=== PATIENT | male | born 1965 | race Two or more races ===

== ENCOUNTER 2017-02-20 08:25 | Day surgery (SDC) | payer OTHER ==
[2017-02-20] MEDS ORDERED: LACTATED RINGERS 1,000 ML IV ONE ×2 (09:00→10:59)
[2017-02-20] MEDS ORDERED: GLUCAGON 1 MG/ML VIAL IM ONE (09:47)
[2017-02-20] MEDS ORDERED: MIDAZOLAM 2 MG/2 ML VIAL IVP ONE (09:47)
[2017-02-20] MEDS ORDERED: fentaNYL 100 MCG/2 ML VIAL IVP ONE (09:47)
[2017-02-20 11:11] LABS: BASOPHILS # (AUTO) 0.1 10^3/uL (0.0-0.1); BASOPHILS % (AUTO) 0.8 %; EOSINOPHILS # (AUTO) 0.1 10^3/uL (0.0-0.7); EOSINOPHILS % (AUTO) 2.1 %; HCT - HEMATOCRIT 40.4 % (42.0-52.0); HGB - HEMOGLOBIN 13.6 g/dL (14.0-18.0); LYMPHOCYTES # (AUTO) 1.6 10^3/uL (1.5-3.5); MEAN CORPUSCULAR HGB CONC 33.7 g/dL (32.0-36.0); MEAN CORPUSCULAR VOLUME 86.1 fL (80.0-94.0); MEAN PLATELET VOLUME 7.2 fL (7.4-11.4); MONOCYTES # (AUTO) 0.4 10^3/uL (0.0-1.0); MONOCYTES % (AUTO) 6.1 %; NEUTROPHILS # (AUTO) 4.3 10^3/uL (1.5-6.6); RED BLOOD COUNT 4.69 10^6/uL (4.70-6.10); RED CELL DISTRIBUTION WIDTH 13.2 % (12.0-15.0); UNCORRECTED WHITE BLOOD COUNT 6.5 x10^3/uL; WHITE BLOOD COUNT 6.5 x10^3/uL (4.8-10.8)
[2017-02-20 11:16] VITALS: BP 125/80
[2017-02-20 11:31] LABS: ALBUMIN/GLOBULIN RATIO 1.4 (1.0-2.2); BILIRUBIN,TOTAL 0.9 mg/dL (0.2-1.0); CALCIUM 8.7 mg/dL (8.5-10.3); CREATININE 0.8 mg/dL (0.6-1.2); POTASSIUM 3.6 mmol/L (3.5-5.0); TOTAL PROTEIN 6.6 g/dL (6.7-8.2)
== END 2017-02-20 08:26 | disposition home or self-care (01) ==
LOC: SDS 08:25
PROVIDERS: ATTEND Surgery
PROC: 0DBL8ZX Excision of Transverse Colon, Via Natural or Artificial Opening Endoscopic, Diagnostic (ICD-10-PCS; 2017-02-20)
PROC: 0DBM8ZX Excision of Descending Colon, Via Natural or Artificial Opening Endoscopic, Diagnostic (ICD-10-PCS; 2017-02-20)
PROC: 0DBP8ZX Excision of Rectum, Via Natural or Artificial Opening Endoscopic, Diagnostic (ICD-10-PCS; principal; 2017-02-20 09:45)
DX: Z12.11 Encounter for screening for malignant neoplasm of colon (principal); D12.3 Benign neoplasm of transverse colon; K63.5 Polyp of colon; K62.1 Rectal polyp; K21.9 Gastro-esophageal reflux disease without esophagitis
CPT/HCPCS: 36415; 45380; 45385; 80053; 82378; 85025; J7120

== ENCOUNTER 2017-02-22 15:20 | Outpatient (CLI) | payer OTHER ==
[2017-02-22] MEDS ORDERED: IOPAMIDOL-300 50 ML VIAL PO ONE (17:22)
[2017-02-22] MEDS ORDERED: IOPAMIDOL-300 100 ML VIAL IVP ONE (17:23)
--- NOTE | 2017-02-23 09:35 | CT Report ---
CT ABDOMEN WITH AND WITHOUT CONTRAST: 02/22/2017 CLINICAL INDICATION: Abnormal colonoscopy. TECHNIQUE: Axial CT images of the abdomen were obtained prior to and following 100 mL Isovue-[address]. No previous CT is available for comparison. In accordance with CT protocol optimization, one or more of the following dose reduction techniques w ere utilized for this exam: automated exposure control, adjustment of mA and/or KV based on patient size, or use of iterative reconstructive technique. FINDINGS: Limited evaluation of the lung bases demonstrates minimal atelectasis. The liver demonstrates innumerable hypodense lesions. The largest, in the left lobe adjacent to the gallbladder fossa, measures 3.7 x 2.9 cm, and is a cyst. Multiple others are too small to further ch aracterize by CT. The spleen, pancreas, kidneys, and adrenal glands are unremarkable. The gallbladd er is not dilated. No bowel dilatation, free gas, or free fluid is seen. No abdominal adenopathy is appreciated. IMPRESSION: INNUMERABLE HYPODENSE LESIONS IN THE LIVER. THE LARGEST IS CLEARLY A CYST, BUT SEVERAL LESIONS ARE TOO SMALL TO FURTHER CHARACTERIZE BY CT. NO EVIDENCE OF BOWEL OBSTRUCTION. JOB #: [id number] EXT JOB #:[id number]
== END 2017-02-22 15:21 | disposition home or self-care (01) ==
LOC: DI 15:20
PROVIDERS: ATTEND Nurse Practitioner Family
DX: K76.9 Liver disease, unspecified (principal); K76.89 Other specified diseases of liver
CPT/HCPCS: 74170; Q9967

== ENCOUNTER 2017-03-05 18:47 | Outpatient (CLI) | payer OTHER ==
--- NOTE | 2017-03-06 12:51 | Ultrasound Report ---
LIMITED ABDOMINAL ULTRASOUND: 03/05/2017 CLINICAL HISTORY: Liver lesions. TECHNIQUE: Real-time scanning was performed with workforce services representative static images obtained. FINDINGS: The liver measures 17 cm in length. The echotexture is increased consistent with fatty infiltration. There are numerous cysts present - many are septated/complex. The dominant cyst is in the right lobe measuring 1.1 x 0.8 x 0.9 cm. The dominant cyst in the left lobe measures 3.3 x 2.5 x 3.1 cm. No solid liver lesions are confirmed sonographically. The gallbladder is sonographically normal. There is no intra nor extraductal dilation. The right kidney measures 11 cm in sagittal dimension. There is no obstructive uropathy. IMPRESSION: INNUMERABLE SIMPLE/SEPTATED ANDCOMPLEX CYSTS IN THE LIVER. NO DEFINITE SOLID LESIONS CONFIRMED SONOGRAPHICALLY. JOB #: [id number] EXT JOB #: [id number] JULITO
== END 2017-03-05 18:48 | disposition home or self-care (01) ==
LOC: DI 18:47
PROVIDERS: ATTEND Surgery
DX: K76.89 Other specified diseases of liver (principal)
CPT/HCPCS: 76705

== ENCOUNTER 2017-03-07 06:06 | Inpatient (IN) | payer OTHER ==
[2017-03-07] MEDS ORDERED: ERTAPENEM 1 GM VIAL ONE (06:26)
[2017-03-07] MEDS ORDERED: LACTATED RINGERS 1,000 ML IV ONE ×2 (06:43→12:11)
[2017-03-07] MEDS ORDERED: BUPIVACAINE 0.5%-EPI 1:200000 PF 30 ML VIAL SUBQ ONE ×2 (08:19→11:59)
[2017-03-07] MEDS ORDERED: HYDROmorphone 1 MG/ML SYRINGE IVP PRN (12:18)
[2017-03-07] MEDS: D5NS W/20 MEQ KCL 1,000 ML IV SCH ×2 (12:56→20:32)
[2017-03-07] MEDS: SODIUM CHLORIDE FLUSH 0.9% 10 ML SYRINGE IVP SCH ×3 (13:07→20:13)
[2017-03-07] MEDS ORDERED: ONDANSETRON 4 MG/2 ML VIAL IVP PRN (13:31)
[2017-03-07] MEDS: KETOROLAC 15 MG/ML VIAL IVP PRN ×2 (13:44→23:46)
[2017-03-07] MEDS: HYDROmorphone 1 MG/ML SYRINGE IVP PRN ×2 (20:12→23:47)
[2017-03-08] MEDS: HYDROmorphone 1 MG/ML SYRINGE IVP PRN ×3 (03:30→09:51)
--- NOTE | 2017-03-08 04:04 | OPERATIVE REPORT ---
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 PROCEDURES 1. Laparoscopic left hemicolectomy. 2. Mobilization of splenic flexure. OPERATING SURGEON: Jordan Foley MD. CLERK MANAGER: Navya Perez MD. ANESTHESIA: General. INDICATIONS FOR PROCEDURE: The patient is a 52-year-old male who underwent a routine colonoscopy. He was found to have a large polyp/mass in the left colon at 55 cm. Biopsy of the lesion revealed high grade dysplasia. FINDINGS AT SURGERY: The patient had at least a 3 cm mass in the descending - sigmoid colon junction. A left hemicolectomy was performed with colorectal anastomosis. There was no tension at the staple line after completing the anastomosis with a 28 EEA stapling device. Both donuts were intact. On insufflating the rectum with air, there was no leak being noted at the anastomosis. PROCEDURE: After informed consent was obtained, the patient was taken to the operating room and placed in the supine position. General endotracheal anesthesia administered. The patient's abdomen was then prepped and draped in the usual sterile fashion. An infraumbilical incision was made in the skin using a scalpel. A 5 mm Optiview trocar was then inserted through the incision, through the fascia, and into the abdominal cavity under direct vision. The abdomen was then insufflated. A 5 mm port was then placed in left lower quadrant and flank under direct vision and a 12 mm port placed in the right lower quadrant incision. The 5 mm port at the umbilicus was then up sized to a 12 mm port. The abdomen was then explored. The liver appeared to be normal without abnormalities superficially. First, the peritoneum was then scored along the rectosigmoid colon medially. Next dissecting underneath the mesentery , the ureter was then identified. It was then dissected free going down in the pelvis and proximally past the left colon arterial blood supply. Attention then turned to the left colic artery. This was dissected free from the surrounding structures. With the ureter identified, a GI 45 stapling device was then placed across the left colic artery, stapling and dividing it. Next, the sigmoid colon and left colon was then mobilized laterally by incising the lateral peritoneal reflection. Next, attention turned down to the pelvis near the rectosigmoid junction. The mesentery of the colon at this point was then divided using the Harmonic scalpel. A GI 60 stapling device was then placed across the colon at this point, stapling and dividing it. The splenic flexure was then mobilized using the Harmonic scalpel. The greater omentum was then detached from the distal transverse colon using the Harmonic scalpel. This better mobilized the left colon. The inferior mesenteric vein was then divided using GI 60 stapling device. With the left colon and distal transverse colon fully mobilized, the colon was then exteriorized. The incision at the umbilicus was then extended through the umbilicus. This allowed placement of a small wound protector. The divided end of the colon was then brought out through this opening. The proximal descending colon was then used to complete the anastomosis. First pursestring suture was then placed across the colon, dividing it on the device with the distal colon being removed, meaning the descending and sigmoid colon. A #28 anvil was then inserted into the divided end of the proximal descending colon with the suture then being tied. The anvil was then brought back into the abdominal cavity and the Davy wound protector twisted as to obtain airtight seal. The abdomen was then insufflated. Looking at it, it appeared to be fully mobilized. Looking at the ureter, it was intact throughout its course. The anvil of the colon was then brought down in the pelvis without tension. A 28 EEA stapling device was then placed through the anus and into the rectum, going up to where the colon was divided. The spike was then brought out through the stapled end and the anvil was then placed into the spike. The anvil was then brought close to the device after tightening it. It was then engaged, creating a new anastomosis. The EEA stapling device was then removed and both donuts were intact. The pelvis was then filled with fluid and air insufflated into the rectum with no leak noted at the anastomosis. The fluid was then suctioned out. The small bowel was then returned to a good location in the abdomen and the omentum brought down. The 12 mm port in the right lower quadrant was then closed using a 0 Vicryl suture using Mervin Sanchez. The ports were then removed and no bleeding was noted at the port sites, with the abdomen then being desufflated. The midline fascial defect was closed using a running #1 PDS suture. Skin incisions were irrigated well. They were then closed using a 3-0 Monocryl suture. Dermabond was then applied. The patient was then awakened, extubated and taken from the operating room in stable condition. SPECIMENS: Left colon. DRAINS/PACKS: None. CLASSIFICATION OF WOUND: Clean contaminated. ESTIMATED BLOOD LOSS: 100 mL. COMPLICATIONS: None. JOB #: [id number] EXT JOB #:[id number] [facility]ITALJo Ann
[2017-03-08] MEDS: D5NS W/20 MEQ KCL 1,000 ML IV SCH ×4 (04:22→22:20)
[2017-03-08] MEDS: SODIUM CHLORIDE FLUSH 0.9% 10 ML SYRINGE IVP SCH ×3 (05:26→22:01)
[2017-03-08 05:36] LABS: BASOPHILS % (AUTO) 0.1 %; EOSINOPHILS % (AUTO) 0.1 %; HCT - HEMATOCRIT 38.4 % (42.0-52.0); HGB - HEMOGLOBIN 12.8 g/dL (14.0-18.0); LYMPHOCYTES # (AUTO) 1.6 10^3/uL (1.5-3.5); LYMPHOCYTES % (AUTO) 14.9 %; MEAN CORPUSCULAR HEMOGLOBIN 29.1 pg (27.0-31.0); MEAN CORPUSCULAR HGB CONC 33.3 g/dL (32.0-36.0); MEAN CORPUSCULAR VOLUME 87.2 fL (80.0-94.0); MEAN PLATELET VOLUME 7.5 fL (7.4-11.4); MONOCYTES # (AUTO) 1.3 10^3/uL (0.0-1.0); MONOCYTES % (AUTO) 11.8 %; NEUTROPHILS % (AUTO) 73.1 %; NUCLEATED RED BLOOD CELLS AUTO 0.1 /100WBC; RED CELL DISTRIBUTION WIDTH 13.3 % (12.0-15.0); UNCORRECTED WHITE BLOOD COUNT 10.9 x10^3/uL; WHITE BLOOD COUNT 10.9 x10^3/uL (4.8-10.8)
[2017-03-08 05:43] LABS: CALCIUM 8.3 mg/dL (8.5-10.3); CREATININE 0.8 mg/dL (0.6-1.2); POTASSIUM 3.8 mmol/L (3.5-5.0)
[2017-03-08] MEDS: HEPARIN 5,000 UNIT/ML VIAL SUBQ SCH ×3 (08:27→21:25)
[2017-03-08] MEDS ORDERED: PANTOPRAZOLE 40 MG VIAL IVP SCH (10:00)
[2017-03-08] MEDS: SODIUM CHLORIDE FLUSH 0.9% 10 ML SYRINGE IVP PRN ×2 (12:56→21:26)
[2017-03-08] MEDS: KETOROLAC 15 MG/ML VIAL IVP PRN ×2 (15:58→22:23)
[2017-03-08] MEDS: PANTOPRAZOLE 40 MG VIAL IVP SCH (21:26)
[2017-03-09] MEDS: KETOROLAC 15 MG/ML VIAL IVP PRN ×3 (03:57→22:28)
[2017-03-09 04:53] LABS: BASOPHILS % (AUTO) 0.4 %; EOSINOPHILS # (AUTO) 0.1 10^3/uL (0.0-0.7); EOSINOPHILS % (AUTO) 0.6 %; HCT - HEMATOCRIT 39.5 % (42.0-52.0); HGB - HEMOGLOBIN 13.2 g/dL (14.0-18.0); LYMPHOCYTES # (AUTO) 1.5 10^3/uL (1.5-3.5); LYMPHOCYTES % (AUTO) 16.6 %; MEAN CORPUSCULAR HGB CONC 33.4 g/dL (32.0-36.0); MEAN CORPUSCULAR VOLUME 86.7 fL (80.0-94.0); MEAN PLATELET VOLUME 7.5 fL (7.4-11.4); MONOCYTES # (AUTO) 0.9 10^3/uL (0.0-1.0); MONOCYTES % (AUTO) 9.8 %; NEUTROPHILS # (AUTO) 6.6 10^3/uL (1.5-6.6); NEUTROPHILS % (AUTO) 72.6 %; RED BLOOD COUNT 4.55 10^6/uL (4.70-6.10); RED CELL DISTRIBUTION WIDTH 13.3 % (12.0-15.0)
[2017-03-09 05:00] LABS: CALCIUM 8.6 mg/dL (8.5-10.3); CREATININE 0.9 mg/dL (0.6-1.2); POTASSIUM 3.9 mmol/L (3.5-5.0)
[2017-03-09] MEDS: HEPARIN 5,000 UNIT/ML VIAL SUBQ SCH ×3 (06:07→21:36)
[2017-03-09] MEDS: SODIUM CHLORIDE FLUSH 0.9% 10 ML SYRINGE IVP SCH ×3 (06:11→21:29)
[2017-03-09] MEDS: D5NS W/20 MEQ KCL 1,000 ML IV SCH ×2 (07:55→18:05)
[2017-03-09] MEDS: SODIUM CHLORIDE FLUSH 0.9% 10 ML SYRINGE IVP PRN ×2 (08:49→10:22)
[2017-03-09] MEDS: PANTOPRAZOLE 40 MG VIAL IVP SCH ×2 (08:49→21:37)
--- NOTE | 2017-03-09 10:19 | PROVIDER PROGRESS NOTE ---
Subjective - General Admit Date: 03/07/17 Procedure Performed: Laparoscopic left hemicolectomy - Review of Systems Wound/Incisions: positive: Healing well General: positive: No symptoms Gastrointestinal: positive: Other (no flatus yet) Objective - Patient Data Reviewed Vital Signs: Yes Vital Signs: Vital Signs x48h Temp Pulse Resp BP Pulse Ox 03/09/17 07:37 36.7 C 80 18 119/90 H 97 03/09/17 03:59 37.3 C 90 16 125/87 H 95 Intake & Output: Intake and Output Totals x24h 03/07/17 03/08/17 03/09/17 23:59 23:59 23:59 Intake Total 4138 2438 1174 Output Total 2425 4550 800 Balance 1713 -1312 374 - Lab Results Lab Results: 03/09/17 04:35 03/09/17 04:35 Other Lab Results: Lab Results x24hrs 03/09/17 03/09/17 Range/Units 04:35 04:35 WBC 9.0 (4.8-10.8) x10^3/uL RBC 4.55 L (4.70-6.10) 10^6/uL Hgb 13.2 L (14.0-18.0) g/dL Hct 39.5 L (42.0-52.0) % MCV 86.7 (80.0-94.0) fL MCH 29.0 (27.0-31.0) pg MCHC 33.4 (32.0-36.0) g/dL RDW 13.3 (12.0-15.0) % Plt Count 223 (130-450) 10^3/uL MPV 7.5 (7.4-11.4) fL Neut # 6.6 (1.5-6.6) 10^3/uL Lymph # 1.5 (1.5-3.5) 10^3/uL [place] # 0.9 (0.0-1.0) 10^3/uL Eos # 0.1 (0.0-0.7) 10^3/uL Baso # 0.0 (0.0-0.1) 10^3/uL Absolute Nucleated RBC 0.00 x10^3/uL Nucleated RBCs 0.0 /100WBC Sodium 139 (135-145) mmol/L Potassium 3.9 (3.5-5.0) mmol/L Chloride 108 (101-111) mmol/L Carbon Dioxide 24 (21-32) mmol/L Anion Gap 7.0 (6-13) BUN 8 (6-20) mg/dL Creatinine 0.9 (0.6-1.2) mg/dL Estimated GFR (MDRD) 88 L (>89) Glucose 115 H (70-100) mg/dL Calcium 8.6 (8.5-10.3) mg/dL - Current Medications Current Medications: Current Medications Generic Name Dose Route Start Last Admin Trade Name Freq PRN Reason Stop Dose Admin Heparin Sodium (Porcine) 5,000 unit 03/08/17 08:00 03/09/17 06:07 SUBQ 5,000 unit TID LUIS Administration Hydromorphone HCl 1 mg 03/07/17 12:17 03/08/17 09:51 Dilaudid Inj IVP 1 mg Q2HR PRN Administration PAIN Hydromorphone HCl 2 mg 03/07/17 12:18 03/08/17 12:55 Dilaudid Inj IVP 2 mg Q2HR PRN Administration PAIN Potassium Chloride/Dextrose/Sod Cl 1,000 mls @ 100 mls/hr 03/08/17 09:13 07:55 IV 100 mls/hr .Q10H LUIS Administration Ketorolac Tromethamine 15 mg 03/07/17 13:30 03/09/17 03:57 Toradol Inj IVP 03/12/17 13:29 15 mg Q6HR PRN Administration PAIN Pantoprazole Sodium 20 mg 03/08/17 21:00 03/09/17 08:49 Protonix IVP 20 mg BID LUIS Administration Sodium Chloride 10 ml 03/07/17 12:06 03/09/17 08:49 Normal Saline Flush 0.9% IVP 10 ml PRN PRN Administration NEEDED PER PROVIDER ORDERS Sodium Chloride 10 ml 03/07/17 14:00 03/09/17 06:11 Normal Saline Flush 0.9% IVP Not Given Q8HR LUIS - Physical Exam Wound/Incisions: positive: Healing well Abdomen: positive: Non-tender Impression/Plan - Problem List Problem List: A/P s/p laparoscopic left hemicolectomy pod #2 awaiting return of bowel function -continue liquids -ambulate -await pathology
--- NOTE | 2017-03-09 10:21 | PROVIDER PROGRESS NOTE ---
Subjective - General Admit Date: 03/07/17 Procedure Performed: Laparoscopic left hemicolectomy - Review of Systems Wound/Incisions: positive: Healing well General: positive: No symptoms Gastrointestinal: positive: Other (no flatus yet) Objective - Patient Data Vital Signs: Vital Signs x48h Temp Pulse Resp BP Pulse Ox 03/09/17 07:37 36.7 C 80 18 119/90 H 97 03/09/17 03:59 37.3 C 90 16 125/87 H 95 Intake & Output: Intake and Output Totals x24h 03/07/17 03/08/17 03/09/17 23:59 23:59 23:59 Intake Total 4138 2438 1174 Output Total 2425 2970 800 Balance 1713 -1312 374 - Lab Results Lab Results: 03/09/17 04:35 03/09/17 04:35 Other Lab Results: Lab Results x24hrs 03/09/17 03/09/17 Range/Units 04:35 04:35 WBC 9.0 (4.8-10.8) x10^3/uL RBC 4.55 L (4.70-6.10) 10^6/uL Hgb 13.2 L (14.0-18.0) g/dL Hct 39.5 L (42.0-52.0) % MCV 86.7 (80.0-94.0) fL MCH 29.0 (27.0-31.0) pg MCHC 33.4 (32.0-36.0) g/dL RDW 13.3 (12.0-15.0) % Plt Count 223 (130-450) 10^3/uL MPV 7.5 (7.4-11.4) fL Neut # 6.6 (1.5-6.6) 10^3/uL Lymph # 1.5 (1.5-3.5) 10^3/uL [place] # 0.9 (0.0-1.0) 10^3/uL Eos # 0.1 (0.0-0.7) 10^3/uL Baso # 0.0 (0.0-0.1) 10^3/uL Absolute Nucleated RBC 0.00 x10^3/uL Nucleated RBCs 0.0 /100WBC Sodium 139 (135-145) mmol/L Potassium 3.9 (3.5-5.0) mmol/L Chloride 108 (101-111) mmol/L Carbon Dioxide 24 (21-32) mmol/L Anion Gap 7.0 (6-13) BUN 8 (6-20) mg/dL Creatinine 0.9 (0.6-1.2) mg/dL Estimated GFR (MDRD) 88 L (>89) Glucose 115 H (70-100) mg/dL Calcium 8.6 (8.5-10.3) mg/dL - Current Medications Current Medications: Current Medications Generic Name Dose Route Start Last Admin Trade Name Freq PRN Reason Stop Dose Admin Heparin Sodium (Porcine) 5,000 unit 03/08/17 08:00 03/09/17 06:07 SUBQ 5,000 unit TID LUIS Administration Hydromorphone HCl 1 mg 03/07/17 12:17 03/08/17 09:51 Dilaudid Inj IVP 1 mg Q2HR PRN Administration PAIN Hydromorphone HCl 2 mg 03/07/17 12:18 03/08/17 12:55 Dilaudid Inj IVP 2 mg Q2HR PRN Administration PAIN Potassium Chloride/Dextrose/Sod Cl 1,000 mls @ 100 mls/hr 03/08/17 09:13 07:55 IV 100 mls/hr .Q10H LUIS Administration Ketorolac Tromethamine 15 mg 03/07/17 13:30 03/09/17 03:57 Toradol Inj IVP 03/12/17 13:29 15 mg Q6HR PRN Administration PAIN Pantoprazole Sodium 20 mg 03/08/17 21:00 03/09/17 08:49 Protonix IVP 20 mg BID LUIS Administration Sodium Chloride 10 ml 03/07/17 12:06 03/09/17 08:49 Normal Saline Flush 0.9% IVP 10 ml PRN PRN Administration NEEDED PER PROVIDER ORDERS Sodium Chloride 10 ml 03/07/17 14:00 03/09/17 06:11 Normal Saline Flush 0.9% IVP Not Given Q8HR LUIS - Physical Exam Abdomen: positive: Non-tender, Other (incision clean) Impression/Plan - Problem List Problem List: a/p s/p laparoscopic left hemicolectomy pod#1 no evidence of infection -ambulate d/c hubbard start liquids
[2017-03-10] MEDS: D5NS W/20 MEQ KCL 1,000 ML IV SCH ×2 (03:45→13:28)
[2017-03-10] MEDS: KETOROLAC 15 MG/ML VIAL IVP PRN (04:40)
[2017-03-10] MEDS: SODIUM CHLORIDE FLUSH 0.9% 10 ML SYRINGE IVP SCH ×3 (06:02→22:11)
[2017-03-10] MEDS: HEPARIN 5,000 UNIT/ML VIAL SUBQ SCH ×3 (06:10→20:18)
[2017-03-10] MEDS: PANTOPRAZOLE 40 MG VIAL IVP SCH ×2 (09:44→20:17)
--- NOTE | 2017-03-10 11:29 | PROVIDER PROGRESS NOTE ---
Subjective - General Admit Date: 03/07/17 Procedure Performed: Laparoscopic left hemicolectomy - Review of Systems Wound/Incisions: positive: Healing well General: positive: No symptoms (Wants to walk outside as well as inside.) HEENT: positive: No symptoms Pulmonary: positive: No symptoms Cardiovascular: positive: No symptoms Gastrointestinal: positive: No symptoms (Started with BM and now has flatus as well.), Flatus Genitourinary: positive: No symptoms Musculoskeletal: positive: No symptoms Skin: positive: No symptoms Objective - Patient Data Reviewed Vital Signs: Yes Vital Signs: Vital Signs x48h Temp Pulse Resp BP Pulse Ox 03/10/17 09:11 37.3 C 03/10/17 07:58 93 18 130/73 98 Intake & Output: Intake and Output Totals x24h 03/08/17 03/09/17 03/10/17 23:59 23:59 23:59 Intake Total 2438 4606 1824 Output Total 3750 2550 400 Balance -1312 2056 1424 - Lab Results Lab Results: 03/09/17 04:35 03/09/17 04:35 - Current Medications Current Medications: Current Medications Generic Name Dose Route Start Last Admin Trade Name Freq PRN Reason Stop Dose Admin Heparin Sodium (Porcine) 5,000 unit 03/08/17 08:00 03/10/17 06:10 SUBQ 5,000 unit TID LUIS Administration Hydromorphone HCl 1 mg 03/07/17 12:17 03/08/17 09:51 Dilaudid Inj IVP 1 mg Q2HR PRN Administration PAIN Hydromorphone HCl 2 mg 03/07/17 12:18 03/08/17 12:55 Dilaudid Inj IVP 2 mg Q2HR PRN Administration PAIN Potassium Chloride/Dextrose/Sod Cl 1,000 mls @ 100 mls/hr 03/08/17 09:13 03:45 IV 100 mls/hr .Q10H LUIS Administration Ketorolac Tromethamine 15 mg 03/07/17 13:30 03/10/17 04:40 Toradol Inj IVP 03/12/17 13:29 15 mg Q6HR PRN Administration PAIN Pantoprazole Sodium 20 mg 03/08/17 21:00 03/10/17 09:44 Protonix IVP 20 mg BID LUIS Administration Sodium Chloride 10 ml 03/07/17 12:06 03/09/17 10:22 Normal Saline Flush 0.9% IVP 10 ml PRN PRN Administration NEEDED PER PROVIDER ORDERS Sodium Chloride 10 ml 03/07/17 14:00 03/10/17 06:02 Normal Saline Flush 0.9% IVP Not Given Q8HR LUIS - Physical Exam Wound/Incisions: positive: Healing well, Other (Minimal discoloration likely secondary to bruising.) General Appearance: positive: No acute distress Eyes Bilateral: positive: No lid inflammation, Conjunctivae nml, No scleral icterus Neck: positive: Trachea midline Respiratory: positive: Chest non-tender, No respiratory distress, Breath sounds nml Cardiovascular: positive: Regular rate & rhythm Abdomen: positive: Nml bowel sounds Skin: positive: Color nml Neurologic/Psychiatric: positive: Oriented x3 Impression/Plan - Problem List Problem List: D3 s/p laparoscopic left hemicolectomy Start a general diet. Hep-Lock his IV. Swith to oral Toradol for pain control. Allow the patient to ambulate both inside and outside the hospital. Pathology has not returned yet.
[2017-03-10] MEDS: KETOROLAC 10 MG TABLET PO PRN (19:47)
[2017-03-11] MEDS: KETOROLAC 10 MG TABLET PO PRN (05:48)
[2017-03-11] MEDS: SODIUM CHLORIDE FLUSH 0.9% 10 ML SYRINGE IVP SCH (05:48)
[2017-03-11] MEDS: HEPARIN 5,000 UNIT/ML VIAL SUBQ SCH (06:08)
[2017-03-11] MEDS: PANTOPRAZOLE 40 MG VIAL IVP SCH (08:48)
[2017-03-11 10:46] VITALS: BP 118/84
--- NOTE | 2017-03-11 10:47 | PROVIDER PROGRESS NOTE ---
Subjective - General Admit Date: 03/07/17 Procedure Performed: Laparoscopic left hemicolectomy - Review of Systems Wound/Incisions: positive: Healing well, Other (Minimal discoloration likely secondary to bruising.) General: positive: No symptoms (Pain and discomfort markedly diminished.) HEENT: positive: No symptoms Pulmonary: positive: No symptoms Cardiovascular: positive: No symptoms Gastrointestinal: positive: No symptoms (BM without difficulty.), Flatus Genitourinary: positive: No symptoms Musculoskeletal: positive: No symptoms Skin: positive: No symptoms Psychiatric: positive: No symptoms Objective - Patient Data Reviewed Vital Signs: Yes Vital Signs: Vital Signs x48h Temp Pulse BP Pulse Ox 03/11/17 07:32 36.6 C 66 127/80 99 Intake & Output: Intake and Output Totals x24h 03/09/17 03/10/17 03/11/17 23:59 23:59 23:59 Intake Total 4606 2304 710 Output Total 2550 400 Balance 2056 1904 710 - Lab Results Lab Results: 03/09/17 04:35 03/09/17 04:35 - Current Medications Current Medications: Current Medications Generic Name Dose Route Start Last Admin Trade Name Freq PRN Reason Stop Dose Admin Heparin Sodium (Porcine) 5,000 unit 03/08/17 08:00 03/11/17 06:08 SUBQ Not Given TID LUIS Hydromorphone HCl 1 mg 03/07/17 12:17 03/08/17 09:51 Dilaudid Inj IVP 1 mg Q2HR PRN Administration PAIN Hydromorphone HCl 2 mg 03/07/17 12:18 03/08/17 12:55 Dilaudid Inj IVP 2 mg Q2HR PRN Administration PAIN Ketorolac Tromethamine 15 mg 03/07/17 13:30 03/10/17 04:40 Toradol Inj IVP 03/12/17 13:29 15 mg Q6HR PRN Administration PAIN Ketorolac Tromethamine 10 mg 03/10/17 11:25 03/11/17 05:48 Toradol PO 03/15/17 11:24 10 mg Q6HR PRN Administration PAIN Pantoprazole Sodium 20 mg 03/08/17 21:00 03/11/17 08:48 Protonix IVP Not Given BID LUIS Sodium Chloride 10 ml 03/07/17 12:06 03/09/17 10:22 Normal Saline Flush 0.9% IVP 10 ml PRN PRN Administration NEEDED PER PROVIDER ORDERS Sodium Chloride 10 ml 03/07/17 14:00 03/11/17 05:48 Normal Saline Flush 0.9% IVP 10 ml Q8HR LUIS Administration - Physical Exam Wound/Incisions: positive: Healing well (The discoloration did not extend passed marked line.) General Appearance: positive: No acute distress Eyes Bilateral: positive: No lid inflammation, Conjunctivae nml, No scleral icterus Neck: positive: Trachea midline Respiratory: positive: Chest non-tender, No respiratory distress, Breath sounds nml Cardiovascular: positive: Regular rate & rhythm Abdomen: positive: Nml bowel sounds Skin: positive: Color nml Extremities: positive: Non-tender, Full ROM, Nml appearance Neurologic/Psychiatric: positive: Oriented x3 Impression/Plan - Problem List Problem List: Discharge home today on regular diet with only restriction being no lifting greater than 15 pounds for 6 week. Follow-up with us in the office in 7-10 days. Contact us with any surgical questions and/or concerns. He has been instructed that he can shower, hot tub, swim, walk, climb stairs, tolerated general diet, and have sex.
--- NOTE | 2017-03-11 10:52 | Discharge Plan ---
Discharge Plan Disposition: 01 Home, Self Care Condition: Good Prescriptions: Ketorolac [Toradol] 10 mg PO Q6HR PRN #12 tablet PRN Reason: Pain Diet: Regular Activity Restrictions: No lifting >15 pounds Shower Restrictions: No Driving Restrictions: No Weight Bearing: Full Weight Additional Instructions or Follow Up instructions: Call for appointment in 7-10 days on Sunday morning and call the same number with surgical questions or concerns. No Smoking: If you smoke, Please STOP! Call for help. Follow-up with: Jordan Foley MD [Provider Admit Priv/Credential] -
--- NOTE | 2017-03-11 21:05 | DISCHARGE SUMMARY ---
DATE OF ADMISSION: 03/07/2017 DATE OF DISCHARGE: 03/11/2017 The patient was admitted to the hospital on 03/07/2017 and operated on the same date by Dr. Og martinez assisted by Dr. Perez for a large polyp or mass in the left colon at 55 cm. Biopsy of the lesion revealed high grade dysplasia. He was taken to the operating room on the aforementioned date and had a laparoscopic left hemicolectomy with mobilization of the splenic flexure. Postoperatively, he did well with the addition of clear liquids and finally a full diet. His bowel function returned. His mera n is well controlled on Toradol. He is being sent home on the 4th postoperative day with a prescripti on for Toradol. He has been told he can shower, hot tub, swim, walk, climb stairs, and even have sex. He is to have a general diet. He is not to lift anything heavier than 15 pounds for a total of 6 wee ks. He has been told to call our office tomorrow for an appointment in 7-10 days. JOB #: [id number] EXT JOB #:[id number]
== END 2017-03-11 11:26 | disposition home or self-care (01) | DRG 331 ==
LOC: MS3 06:06 → MS2 18:14
PROVIDERS: ADMIT Surgery; ATTEND Surgery
PROC: 0DBG4ZZ Excision of Left Large Intestine, Percutaneous Endoscopic Approach (ICD-10-PCS; principal; 2017-03-07 07:30)
DX: D12.6 Benign neoplasm of colon, unspecified (principal); Z87.891 Personal history of nicotine dependence; K21.9 Gastro-esophageal reflux disease without esophagitis
CPT/HCPCS: 36415; 80048; 85025; 86850; 86900; 86901

== ENCOUNTER 2017-03-25 12:10 | Emergency (ER) | payer OTHER ==
[2017-03-25] MEDS ORDERED: valACYclovir 500 MG TABLET PO STA (12:41)
[2017-03-25] MEDS ORDERED: valACYclovir 500 MG TABLET ONE (12:49)
--- NOTE | 2017-03-25 13:07 | ED Physician Documentation ---
PD HPI SKIN - Stated complaint Stated Complaint: BLISTERS - Chief complaint Chief Complaint: Wound - History obtained from History obtained from: Patient - Additional information Additional information: Patient is a pleasant 52-year-old male who presents with a complaint of a painful rash to his right anterior chest and area believe below the right arm. He has had this rash for a couple days it is increasing in size and in severity. Review of systems: For pertinent positive and negatives in the review of systems please see the history of present illness, otherwise all other systems have been reviewed and are negative. Dragon disclaimer: Parts of this medical record were created using voice recognition technology. Because of the inherent limitations of this system, occasional same sounding word substitutions do occur and persist despite proofreading. Please read the document for context. Review of Systems Constitutional: denies: Fever, Chills Skin: reports: Rash, Lesions PD PAST MEDICAL HISTORY - Past Medical History Cardiovascular: None Respiratory: None Neuro: None Endocrine/Autoimmune: None GI: GERD : None HEENT: None Psych: None Musculoskeletal: None Derm: None Other Past Medical History: colon cancer - Past Surgical History Past Surgical History: Yes HEENT: Other - Present Medications Home Medications: Ambulatory Orders Medication Instructions Recorded Confirmed Docusate Sodium 250Mg Capsule 250 mg PO DAILY 03/25/17 03/25/17 [Colace 250Mg Capsule] Esomeprazole Magnesium [Nexium] 20 mg PO DAILY 03/25/17 03/25/17 Valacyclovir HCl [Valtrex] 1,000 mg PO BID #14 tablet 03/25/17 - Allergies Allergies/Adverse Reactions: Allergies Allergy/AdvReac Type Severity Reaction Status Date / Time No Known Drug Allergies Allergy Verified 02/20/17 09:08 - Social History Does the pt smoke?: No Smoking Status: Never smoker Does the pt drink ETOH?: No Does the pt have substance abuse?: No PD ED PE NORMAL - Vitals Vital signs reviewed: Yes - General General: Alert and oriented X 3, No acute distress - HEENT HEENT: Atraumatic - Neck Neck: Supple, no meningeal sign - Cardiac Cardiac: RRR - Respiratory Respiratory: No respiratory distress - Abdomen Abdomen: Normal bowel sounds, Soft, Non tender, Non distended, Other (Healing laparoscopic incisions from recent laparoscopic hemicolectomy) - Derm Derm: Normal color, Warm and dry, Other (Vesicles on erythematous base over the right pectoral region and to a lesser extent adjacent to the right posterior external armpit area) - Extremities Extremities: No deformity, No tenderness to palpate Results - Vitals Vitals: Vital Signs - 24 hr 03/25/17 12:15 Temperature 36.8 C Heart Rate 116 H Respiratory 16 Rate Blood Pressure 119/84 H O2 Saturation 97 Oxygen O2 Source Room air PD MEDICAL DECISION MAKING - ED course ED course: Appearing healthy 52-year-old man recovering from a right sided hemicolectomy for colon cancer who has a rash in the right pectoralis and armpit area consistent with herpes zoster. The rash is probably related to the stress of the surgery. It appears to be in a T4 distribution. He was started on Valtrex and will be discharged home on the same. Disposition: To home Clinical impression: 1. Acute herpes zoster rash T4 distribution right side Departure - Departure Disposition: 01 Home, Self Care Clinical Impression: Herpes zoster Qualifiers: Herpes zoster complications: without complications Qualified Code(s): B02.9 - Zoster without complications Condition: Good Instructions: ED Shingles Follow-Up: ZAK LANDEROS [Primary Care Provider] - Prescriptions: Valacyclovir HCl [Valtrex] 1,000 mg PO BID #14 tablet
[2017-03-25 13:11] VITALS: BP 124/89
== END 2017-03-25 13:21 | disposition home or self-care (01) ==
LOC: ED 12:10
DX: B02.9 Zoster without complications (principal)
CPT/HCPCS: 99283; A9270

== ENCOUNTER 2017-04-08 20:38 | Emergency (ER) | payer OTHER ==
[2017-04-08] MEDS ORDERED: SUCRALFATE 1 GM/10 ML UDC PO STA (21:25)
[2017-04-08] MEDS ORDERED: LIDOCAINE VISCOUS 2% 15 ML UDC MM STA (21:25)
[2017-04-08] MEDS ORDERED: MAG HYDROX/AL HYDROX/SIMETH 30 ML UDC PO STA (21:25)
--- NOTE | 2017-04-08 21:28 | ED Physician Documentation ---
PD HPI ABD PAIN - Stated complaint Stated Complaint: ABD PX - Chief complaint Chief Complaint: Abd Pain - History obtained from History obtained from: Patient, Family - History of Present Illness Timing - onset: Today Timing - duration: Hours Timing - details: Abrupt onset, Still present Quality: Sharp, Pain Location: Epigastric Improved by: Meds Associated symptoms: Other (Frequent belching.) Similar symptoms before: Diagnosis (Peptic ulcer disease and reflux.) Recently seen: Emergency Dept (Seen for herpes zoster 10 days ago), Surgery ( The patient has had a recent colon resection.) - Additional information Additional information: 52-year-old male with recent diagnosis of colon cancer has had a laparoscopic colon resection and is not likely to require chemotherapy. He has had some issues with constipation recently and when he went back to see his primary about taking his Nexium for his heartburn he was told that this is a as needed medicine and he is reduced his dose to once per day. Prior to coming to the emergency department today he took some Nexium and is beginning to feel somewhat better.He does not think he has any signs of obstruction he is passing gas well he has had stool out although a decreased output. Review of Systems Constitutional: denies: Fever, Chills, Myalgias Eyes: denies: Decreased vision Ears: denies: Ear pain Nose: denies: Congestion Throat: denies: Sore throat Cardiac: denies: Chest pain / pressure, Palpitations Respiratory: denies: Dyspnea, Cough GI: reports: Abdominal Pain, Constipation. denies: Nausea, Vomiting, Diarrhea : denies: Dysuria, Frequency Skin: reports: Lesions (healed zoster). denies: Rash Musculoskeletal: denies: Neck pain, Back pain, Extremity pain Neurologic: denies: Generalized weakness, Focal weakness, Numbness PD PAST MEDICAL HISTORY - Past Medical History Past Medical History: Yes Cardiovascular: None Respiratory: None Neuro: None Endocrine/Autoimmune: None GI: GERD : None HEENT: None Psych: None Musculoskeletal: None Derm: None Other Past Medical History: bowel cancer - Past Surgical History Past Surgical History: Yes HEENT: Other - Present Medications Home Medications: Ambulatory Orders Medication Instructions Recorded Confirmed Docusate Sodium 250Mg Capsule 250 mg PO DAILY 03/25/17 03/25/17 [Colace 250Mg Capsule] Esomeprazole Magnesium [Nexium] 20 mg PO DAILY 03/25/17 03/25/17 Cholecalciferol [Vitamin D3] 5,000 unit 04/08/17 Sucralfate [Carafate] 1 gm PO ACHS #300 ml 04/08/17 - Allergies Allergies/Adverse Reactions: Allergies Allergy/AdvReac Type Severity Reaction Status Date / Time No Known Drug Allergies Allergy Verified 02/20/17 09:08 - Social History Does the pt smoke?: No Smoking Status: Never smoker Does the pt drink ETOH?: No Does the pt have substance abuse?: No PD ED PE NORMAL - Vitals Vital signs reviewed: Yes (Hypertensive) - General General: Alert and oriented X 3, No acute distress, Well developed/nourished - HEENT HEENT: Atraumatic, PERRL - Neck Neck: Supple, no meningeal sign, No bony TTP - Cardiac Cardiac: RRR, No murmur, No gallop - Respiratory Respiratory: No respiratory distress, Clear bilaterally - Abdomen Abdomen: Soft, Other (Mild epigastric tenderness and the surgical site looks well without evidence of inflammation or drainage.) - Back Back: No CVA TTP, No spinal TTP - Derm Derm: Normal color, Warm and dry, No rash - Extremities Extremities: No deformity, No edema - Neuro Neuro: No motor deficit, No sensory deficit - Psych Psych: Normal mood, Normal affect Results - Vitals Vitals: Vital Signs - 24 hr 04/08/17 04/08/17 04/08/17 20:56 21:04 22:14 Temperature 37.2 C 37.1 C Heart Rate 92 88 84 Respiratory 16 16 16 Rate Blood Pressure 133/89 H 133/93 H 122/92 H O2 Saturation 98 97 97 Oxygen O2 Source Room air PD MEDICAL DECISION MAKING - ED course Complexity details: reviewed old records, re-evaluated patient, considered differential, d/w patient, d/w family ED course: 52-year-old male with a history of colon cancer with recent resection appears to have healed well from this and he has stopped taking his Nexium twice daily and started taking it once per day, has now developed symptoms of pain and burning in his abdomen. He has relief of this pain with a GI cocktail. He is instructed to return to taking his Nexium twice per day and we have added Carafate into his regimen. Departure - Departure Disposition: 01 Home, Self Care Clinical Impression: Gastritis Qualifiers: Gastritis type: unspecified gastritis Chronicity: acute Gastritis bleeding: without bleeding Qualified Code(s): K29.00 - Acute gastritis without bleeding Condition: Stable Instructions: ED PUD Vs Gastritis Follow-Up: ZAK LANDEROS [Primary Care Provider] - Prescriptions: Sucralfate [Carafate] 1 gm PO ACHS #300 ml Comments: Today it appears your stomach is been irritated and I recommend that you restart your Nexium at twice per day and take the Carafate for the next 10 days. Discharge Date/Time: 04/08/17 22:14
[2017-04-08] MEDS ORDERED: MAG HYDROX/AL HYDROX/SIMETH 30 ML UDC ONE (21:49)
[2017-04-08] MEDS ORDERED: SUCRALFATE 1 GM/10 ML UDC ONE (21:49)
[2017-04-08] MEDS ORDERED: LIDOCAINE VISCOUS 2% 15 ML UDC MM ONE (21:50)
[2017-04-08 22:15] VITALS: BP 122/92
== END 2017-04-08 22:14 | disposition home or self-care (01) ==
LOC: ED 20:38
DX: K29.00 Acute gastritis without bleeding (principal); K21.9 Gastro-esophageal reflux disease without esophagitis; Z85.038 Personal history of other malignant neoplasm of large intestine; Z90.49 Acquired absence of other specified parts of digestive tract
CPT/HCPCS: 99283; A9270

== ENCOUNTER 2017-04-26 14:05 | Outpatient (CLI) | payer OTHER ==
[2017-04-26 14:59] LABS: H. PYLORI IGG ANTIBODY Negative (Negative); HPYLORI NEG QC Negative (Negative); HPYLORI POS QC POSITIVE (Positive)
== END 2017-04-26 14:06 | disposition home or self-care (01) ==
LOC: LAB 14:05
PROVIDERS: ATTEND Surgery
DX: R10.13 Epigastric pain (principal)
CPT/HCPCS: 36415; 87339

== ENCOUNTER 2017-06-04 14:18 | Outpatient (CLI) | payer OTHER ==
[2017-06-04] MEDS ORDERED: IOPAMIDOL-300 50 ML VIAL ONE (14:33)
[2017-06-04] MEDS ORDERED: IOPAMIDOL-300 100 ML VIAL ONE (14:33)
[2017-06-04] MEDS ORDERED: IOPAMIDOL-300 50 ML VIAL PO ONE (16:38)
[2017-06-04] MEDS ORDERED: IOPAMIDOL-300 100 ML VIAL IVP ONE (16:38)
--- NOTE | 2017-06-05 17:03 | CT Report ---
CT CHEST WITH CONTRAST: 06/05/2017 CLINICAL INDICATION: Colon cancer. Axial CT images of the chest were obtained with 100 mL Isovue-300 intravenously. In accordance with CT protocol optimization, one or more of the following dose reduction techniques w ere utilized for this exam: automated exposure control, adjustment of mA and/or KV based on patient size, or use of iterative reconstructive technique. The heart and great vessels appear unremarkable. No hilar or mediastinal lymphadenopathy is present. There is a 2.5 x 2.0 cm nodule in the posterolateral left lower lobe, suspicious for neoplasm. No effusion or pneumothorax is present. Osseous structures demonstrate degenerative changes. IMPRESSION: A 2.5 X 2.0 CM NODULE WITHIN THE POSTEROLATERAL LEFT LOWER LOBE, SUSPICIOUS FOR NEOPLASM . JOB #: [id number] EXT JOB #:[id number]
--- NOTE | 2017-06-05 17:07 | CT Report ---
CT ABDOMEN AND PELVIS WITH CONTRAST: 06/04/2017 CLINICAL INDICATION: Colon cancer. Axial CT images of the abdomen and pelvis were obtained with 100 mL Isovue-300 intravenously as well as oral contrast. In accordance with CT protocol optimization, one or more of the following dose reduction techniques w ere utilized for this exam: automated exposure control, adjustment of mA and/or KV based on patient size, or use of iterative reconstructive technique. COMPARISON: CT abdomen of 02/22/2017. Multiple hypodense lesions are again seen in the liver, with the largest representing cysts. The sma ller are too small to further characterize. The spleen, pancreas, kidneys, and adrenal glands are un remarkable. The gallbladder is not dilated. No bowel dilatation, free gas, or free fluid is present . No abdominal adenopathy is seen. PELVIS: Anastomotic suture line is noted in the sigmoid colon. No pelvic side wall adenopathy or fr ee fluid is present. Osseous structures demonstrate degenerative changes. IMPRESSION: POSTOPERATIVE CHANGES OF SIGMOID COLON RESECTION. MULTIPLE CYSTS IN THE LIVER, AND SMAL LER HYPODENSITIES ALSO LIKELY REPRESENTING CYSTS. NO DEFINITE METASTATIC DISEASE IN THE ABDOMEN OR P ZACHARY. JOB #: [id number] EXT JOB #:[id number]
== END 2017-06-04 14:19 | disposition home or self-care (01) ==
LOC: DI 14:18
PROVIDERS: ATTEND Internal Medicine Hematology & Oncology
DX: C18.9 Malignant neoplasm of colon, unspecified (principal); R91.1 Solitary pulmonary nodule; K76.89 Other specified diseases of liver
CPT/HCPCS: 71260; 74177; Q9967

== ENCOUNTER 2017-09-12 06:05 | Day surgery (SDC) | payer OTHER ==
[2017-09-12] MEDS ORDERED: LACTATED RINGERS 1,000 ML IV ONE (06:50)
[2017-09-12] MEDS ORDERED: DEXAMETHASONE 4 MG/ML VIAL IVP ONE (07:30)
[2017-09-12] MEDS ORDERED: LIDOCAINE-MPF 2% 5 ML VIAL IM ONE (07:30)
[2017-09-12] MEDS ORDERED: MIDAZOLAM 2 MG/2 ML VIAL IVP ONE (07:30)
[2017-09-12] MEDS ORDERED: KETOROLAC 30 MG/ML VIAL IVP ONE (07:30)
[2017-09-12] MEDS ORDERED: ONDANSETRON 4 MG/2 ML VIAL IVP ONE (07:30)
[2017-09-12] MEDS ORDERED: fentaNYL 100 MCG/2 ML VIAL IVP ONE (07:30)
[2017-09-12] MEDS ORDERED: PROPOFOL 200 MG/20 ML VIAL IVP ONE (07:30)
[2017-09-12] MEDS ORDERED: ceFAZolin 2 GM/50 ML 2 GM/50 ML BAG IV ONE (07:59)
[2017-09-12] MEDS ORDERED: LIDOCAINE MPF 1%-EPI 1:200000 30 ML VIAL SUBQ ONE (08:15)
[2017-09-12] MEDS ORDERED: BUPIVACAINE 0.25% PF 30 ML VIAL SUBQ ONE (08:15)
[2017-09-12 09:33] VITALS: BP 122/68
--- NOTE | 2017-09-12 10:14 | XRAY Report ---
INTRAOPERATIVE IMAGING OF PORT PLACEMENT: 09/12/2017 CLINICAL INDICATION: Port placement. FINDINGS: Intraoperative imaging demonstrates placement of a right jugular port. Five seconds of fluoroscopy time was provided to Dr. Foley; two spot images obtained. IMPRESSION: INTRAOPERATIVE IMAGING OF PORT PLACEMENT. TD: 09/12/2017 10:12
--- NOTE | 2017-09-12 10:15 | XRAY Report ---
FRONTAL CHEST: 09/12/2017 CLINICAL INDICATION: Port placement. FINDINGS: Frontal view of the chest demonstrates a right jugular port terminating in the proximal right atrium. The cardiac silhouette is not enlarged. No focal consolidation, effusion, or pneumothorax is present. IMPRESSION: RIGHT JUGULAR PORT TERMINATING IN THE PROXIMAL RIGHT ATRIUM. NO PNEUMOTHORAX. TD: 09/12/2017 10:13
--- NOTE | 2017-09-13 14:30 | PROCEDURE REPORT ---
DATE OF SERVICE: 09/12/2017 Physician: Jordan Foley MD PRE-PROCEDURE DIAGNOSIS: Lung cancer. POST-PROCEDURE DIAGNOSIS: Lung cancer. PROCEDURE: Placement of right internal jugular Port-A-Cath with ultrasound guidance. OPERATING SURGEON: Jordan Foley MD ANESTHESIA: General. INDICATIONS FOR PROCEDURE: The patient is a 52-year-old male who presents with left lung cancer, undergoing resection. He is needing to receive chemotherapy and would like to have a port placed to receive this medication. FINDINGS AT SURGERY: An 8-[place] PowerPort Port-A-Cath was placed via the right internal jugular vein with the tip of the catheter located at SVC atrial junction. DESCRIPTION OF PROCEDURE: After informed consent was obtained, the patient was taken to the operating room, placed in a supine position. General anesthesia was administered. The patient's right neck and chest were then prepped and draped in the usual sterile fashion. Ultrasound was used to identify the right internal jugular vein. The skin overlying the vein was then injected with local anesthesia. An 1-gauge needle was then inserted through the skin and into the vein. There was return of dark nonpulsatile blood. A guidewire was placed through the needle, and the needle was withdrawn. A location was then chosen in the infraclavicular mid clavicular area. The skin was then injected with local anesthesia, and a transverse incision was made in the skin. A pocket was then developed inferiorly using electrocautery. The port was then placed into the pocket and secured to the underlying fascia using 3-0 Prolene suture. The catheter attached to the port was then tunneled up into the neck incision and cut to appropriate length. It was then flushed. A dilator and sheath were placed over the guidewire, and guidewire and dilator were removed. Catheter was placed through the sheath, with the sheath then being removed. There was good aspiration of blood through the por,t with it being flushed easily. X-ray confirmed that the tip of the catheter was located at the SVC atrial junction. The subcutaneous tissue was closed using a running #3-0 Vicryl suture and. Skin incision was closed using 4-0 Monocryl subcuticular stitches. Dermabond was then applied. The patient was then awakened, extubated, and taken from the operating room in stable condition. ESTIMATED BLOOD LOSS: Less than 5 mL COMPLICATIONS: None. CONDITION OF THE PATIENT AT THE END OF THE PROCEDURE: Stable. SPECIMENS: None. DRAINS, PACKS: None. CLASSIFICATION OF WOUND: Clean. cc: CEDRICK Kevin TD: 09/12/2017 10:44
== END 2017-09-12 06:06 | disposition home or self-care (01) ==
LOC: SDS 06:05
PROVIDERS: ATTEND Surgery
PROC: 0JH60WZ Insertion of Totally Implantable Vascular Access Device into Chest Subcutaneous Tissue and Fascia, Open Approach (ICD-10-PCS; principal; 2017-09-12 07:30)
DX: C34.92 Malignant neoplasm of unspecified part of left bronchus or lung (principal); Z87.891 Personal history of nicotine dependence; K21.9 Gastro-esophageal reflux disease without esophagitis
CPT/HCPCS: 36561; C1788; J0690; J7120; 71045

== ENCOUNTER 2017-09-20 19:38 | Emergency (ER) | payer OTHER ==
[2017-09-20] MEDS ORDERED: SODIUM CHLORIDE 0.9% 1,000 ML IV ONE (20:14)
[2017-09-20 20:19] LABS: BILIRUBIN,URINE NEGATIVE (NEGATIVE); GLUCOSE, URINE (UA) NEGATIVE (NEGATIVE); KETONES,URINE (UA) NEGATIVE (NEGATIVE); LEUKOCYTE ESTERASE, URINE NEGATIVE (NEGATIVE); NITRITE,URINE NEGATIVE (NEGATIVE); OCCULT BLOOD,URINE NEGATIVE (NEGATIVE); PH,URINE 5.5 PH (5.0-7.5); PROTEIN,URINE NEGATIVE (NEGATIVE); UROBILINOGEN,URINE 0.2 (NORMAL) E.U./dL (NORMAL)
--- NOTE | 2017-09-20 20:19 | ED Physician Documentation ---
History of Present Illness - Stated complaint Stated Complaint: CHEST PX/FEVER - Chief complaint Chief Complaint: Fever - History obtained from History obtained from: Patient, Family - History of Present Illness Timing: Other (This is a very pleasant gentleman who has relatively recent diagnoses of both stage I left lower lobe lung cancer and stage II left colon cancer. He started chemotherapy, specifically cisplatin and vinorelbine 6 days ago, that was his first infusion. He had a low-grade fever yesterday and then today he was running a 100.5/1 100.7/100.9 temperature. He has a mild cough. He has some upper abdominal pain but that is chronic and he takes omeprazole for it. He does not have any myalgias. Of note his has influenza. He does have a port in place on the right side but it is not bothering him.) Review of Systems Constitutional: reports: Fever, Chills, Fatigue Nose: denies: Rhinorrhea / runny nose, Congestion Throat: denies: Sore throat Respiratory: reports: Cough. denies: Dyspnea GI: reports: Abdominal Pain. denies: Nausea, Vomiting, Diarrhea PD PAST MEDICAL HISTORY - Past Medical History Cardiovascular: None Respiratory: None Neuro: None Endocrine/Autoimmune: None GI: GERD : None HEENT: None Psych: None Musculoskeletal: None Derm: None - Past Surgical History Past Surgical History: Yes General: Bowel surgery Cardiovascular: Lobectomy HEENT: Other - Present Medications Home Medications: Ambulatory Orders Medication Instructions Recorded Confirmed Cholecalciferol [Vitamin D3] 5,000 unit PO DAILY 04/08/17 09/20/17 Polyethylene Glycol 3350 [Miralax] 17 gm PO ONCE PRN 06/11/17 09/20/17 Ondansetron HCl [Zofran] 8 mg PO Q8H PRN #30 tablet 09/13/17 09/20/17 Prochlorperazine Maleate 10 mg PO Q6H PRN #30 tablet 09/13/17 09/20/17 [Compazine] Levofloxacin [Levaquin] 750 mg PO DAILY #10 tablet 09/20/17 Omeprazole [PriLOSEC] 40 mg PO DAILY 09/20/17 09/20/17 - Allergies Allergies/Adverse Reactions: Allergies Allergy/AdvReac Type Severity Reaction Status Date / Time No Known Drug Allergies Allergy Verified 09/20/17 19:57 - Social History Does the pt smoke?: No Smoking Status: Never smoker Does the pt drink ETOH?: No Does the pt have substance abuse?: No PD ED PE NORMAL - Vitals Vital signs reviewed: Yes - General General: Alert and oriented X 3, No acute distress - HEENT HEENT: PERRL, EOMI, Pharynx benign - Neck Neck: Supple, no meningeal sign, No bony TTP - Cardiac Cardiac: RRR (tachy), No murmur - Respiratory Respiratory: No respiratory distress, Clear bilaterally - Abdomen Abdomen: Non tender - Derm Derm: No rash, Other (port R chest wall, NTTP) - Extremities Extremities: No edema, No calf tenderness / cord - Neuro Neuro: Alert and oriented X 3, Normal speech - Psych Psych: Normal mood, Normal affect Results - Vitals Vitals: Vital Signs - 24 hr 09/20/17 19:54 Temperature 37.5 C Heart Rate 124 H Respiratory 18 Rate Blood Pressure 142/90 H O2 Saturation 98 Oxygen O2 Source Room air - EKG (time done) 1949 Rate: Rate (enter#) (127) Rhythm: Sinus tachycardia [place]: RAD Intervals: Normal RI QRS: Normal Ischemia: Normal ST segments Computer interpretation: Agree with computer - Labs Labs: Laboratory Tests 09/20/17 09/20/17 09/20/17 20:11 20:11 20:15 WBC 4.4 L RBC 4.93 Hgb 14.0 Hct 41.7 L MCV 84.6 MCH 28.5 MCHC 33.7 RDW 13.4 Plt Count 211 MPV 7.8 Neut # 2.5 Lymph # 1.5 [place] # 0.2 Eos # 0.1 Baso # 0.0 Absolute Nucleated RBC 0.00 Nucleated RBC % 0.1 Sodium 135 Potassium 3.6 Chloride 101 Carbon Dioxide 25 Anion Gap 9.0 BUN 11 Creatinine 1.0 Estimated GFR (MDRD) 78 L Glucose 125 H Calcium 8.9 Total Bilirubin 0.4 AST 30 ALT 39 Alkaline Phosphatase 59 Total Protein 7.8 Albumin 4.4 Globulin 3.4 Albumin/Globulin Ratio 1.3 Lipase 22 Urine Color YELLOW Urine Clarity CLEAR Urine pH 5.5 Ur Specific [place] 1.010 Urine Protein NEGATIVE Urine Glucose (UA) NEGATIVE Urine Ketones NEGATIVE Urine Occult Blood NEGATIVE Urine Nitrite NEGATIVE Urine Bilirubin NEGATIVE Urine Urobilinogen 0.2 (NORMAL) Ur Leukocyte Esterase NEGATIVE Ur Microscopic Review NOT INDICATED Urine Culture Comments NOT INDICATED Influenza A (Rapid) Influenza B (Rapid) Influenza Types A,B Ag 09/20/17 20:16 WBC RBC Hgb Hct MCV MCH MCHC RDW Plt Count MPV Neut # Lymph # [place] # Eos # Baso # Absolute Nucleated RBC Nucleated RBC % Sodium Potassium Chloride Carbon Dioxide Anion Gap BUN Creatinine Estimated GFR (MDRD) Glucose Calcium Total Bilirubin AST ALT Alkaline Phosphatase Total Protein Albumin Globulin Albumin/Globulin Ratio Lipase Urine Color Urine Clarity Urine pH Ur Specific [place] Urine Protein Urine Glucose (UA) Urine Ketones Urine Occult Blood Urine Nitrite Urine Bilirubin Urine Urobilinogen Ur Leukocyte Esterase Ur Microscopic Review Urine Culture Comments Influenza A (Rapid) Negative Influenza B (Rapid) Negative Influenza Types A,B Ag - - Rads (name of study) 2v chest Radiology: EMP read contemporaneously (Small LLL PNA) PD MEDICAL DECISION MAKING - ED course ED course: 52-year-old gentleman on chemotherapy presents with low-grade fevers. His has influenza, but he is found to have a small left lower lobe pneumonia. His flu swab is negative and he is not neutropenic. Case discussed by phone with his oncologist, Dr. Villa who feels he should still go to clinic tomorrow for evaluation and potential chemotherapy but no promises were made. Departure - Departure Disposition: 01 Home, Self Care Clinical Impression: Pneumonia Qualifiers: Pneumonia type: due to unspecified organism Laterality: left Lung location: lower lobe of lung Qualified Code(s): J18.1 - Lobar pneumonia, unspecified organism Condition: Good Record reviewed to determine appropriate education?: Yes Instructions: Pneumonia Dc Prescriptions: Levofloxacin [Levaquin] 750 mg PO DAILY #10 tablet Comments: Do not take your Zofran while taking the antibiotic. Return if worse or if you have breathing difficulties or fevers they get higher even. Follow-up in clinic tomorrow as scheduled for reevaluation,
[2017-09-20 20:20] LABS: CLARITY,URINE CLEAR (CLEAR)
[2017-09-20 20:22] LABS: BASOPHILS % (AUTO) 1.1 %; EOSINOPHILS # (AUTO) 0.1 10^3/uL (0.0-0.7); EOSINOPHILS % (AUTO) 1.5 %; LYMPHOCYTES # (AUTO) 1.5 10^3/uL (1.5-3.5); LYMPHOCYTES % (AUTO) 34.5 %; MEAN CORPUSCULAR HEMOGLOBIN 28.5 pg (27.0-31.0); MEAN CORPUSCULAR HGB CONC 33.7 g/dL (32.0-36.0); MEAN CORPUSCULAR VOLUME 84.6 fL (80.0-94.0); MEAN PLATELET VOLUME 7.8 fL (7.4-11.4); MONOCYTES # (AUTO) 0.2 10^3/uL (0.0-1.0); MONOCYTES % (AUTO) 5.5 %; NEUTROPHILS # (AUTO) 2.5 10^3/uL (1.5-6.6); NEUTROPHILS % (AUTO) 57.4 %; PLT - PLATELET COUNT 211 10^3/uL (130-450); RED BLOOD COUNT 4.93 10^6/uL (4.70-6.10); RED CELL DISTRIBUTION WIDTH 13.4 % (12.0-15.0); WHITE BLOOD COUNT 4.4 x10^3/uL (4.8-10.8)
[2017-09-20 20:31] LABS: ALBUMIN 4.4 g/dL (3.2-5.5); ALBUMIN/GLOBULIN RATIO 1.3 (1.0-2.2); BILIRUBIN,TOTAL 0.4 mg/dL (0.2-1.0); CALCIUM 8.9 mg/dL (8.5-10.3); TOTAL PROTEIN 7.8 g/dL (6.7-8.2)
--- NOTE | 2017-09-20 21:07 | XRAY Report ---
EXAM: CHEST RADIOGRAPHY EXAM DATE: 09/20/2017 08:39 PM. CLINICAL HISTORY: Fever. COMPARISON: 09/12/2017. TECHNIQUE: 2 views. FINDINGS: Lungs/Pleura: Streaky atelectasis versus infiltrate in left posterior base. No consolidation, effusio n, or pneumothorax. Mediastinum: Heart and mediastinal contours are unremarkable. Other: Right Port-A-Cath. IMPRESSION: Left basilar atelectasis or infiltrate. [facility] Referring Provider Line: [phone] SITE ID: [id number]
--- NOTE | 2017-09-20 21:07 | XRAY Preliminary Report ---
Exam: XR CHEST 2 VIEW X-RAY IMPRESSION: Left basilar atelectasis or infiltrate. [facility] SITE ID: [id number]
[2017-09-20] MEDS ORDERED: levoFLOXacin 250 MG TABLET PO STA (21:23)
[2017-09-20 21:35] VITALS: BP 131/83
== END 2017-09-20 21:35 | disposition home or self-care (01) ==
LOC: ED 19:38
DX: J18.1 Lobar pneumonia, unspecified organism (principal); C34.92 Malignant neoplasm of unspecified part of left bronchus or lung; C18.9 Malignant neoplasm of colon, unspecified; R00.0 Tachycardia, unspecified; Z92.21 Personal history of antineoplastic chemotherapy; Z90.2 Acquired absence of lung [part of]
CPT/HCPCS: 36415; 71046; 80053; 81003; 83690; 85025; 87040; 87275; 87276; 93005; 96360; 99283; 99284; A9270; 81001; 87086

== ENCOUNTER 2017-10-02 07:52 | Day surgery (SDC) | payer OTHER ==
[2017-10-02] MEDS ORDERED: LACTATED RINGERS 1,000 ML IV ONE (08:15)
[2017-10-02] MEDS ORDERED: fentaNYL 100 MCG/2 ML VIAL IVP ONE (09:06)
[2017-10-02] MEDS ORDERED: MIDAZOLAM 2 MG/2 ML VIAL IVP ONE (09:06)
[2017-10-02 09:59] VITALS: BP 102/56
== END 2017-10-02 07:53 | disposition home or self-care (01) ==
LOC: SDS 07:52
PROVIDERS: ATTEND Surgery
PROC: 0DB78ZX Excision of Stomach, Pylorus, Via Natural or Artificial Opening Endoscopic, Diagnostic (ICD-10-PCS; principal; 2017-10-02 09:15)
DX: R10.13 Epigastric pain (principal); K29.50 Unspecified chronic gastritis without bleeding; Z87.891 Personal history of nicotine dependence
CPT/HCPCS: 43239; J7120

== ENCOUNTER 2017-10-03 09:06 | Outpatient (CLI) | payer OTHER ==
--- NOTE | 2017-10-03 11:13 | Ultrasound Report ---
ABDOMEN ULTRASOUND LIMITED RIGHT UPPER QUADRANT: 10/03/2017 COMPARISON: Abdomen ultrasound 03/05/2017. INDICATION: Epigastric pain. TECHNIQUE: Sonographic evaluation of the right upper quadrant was performed. FINDINGS: The liver is diffusely echogenic. Normal contour. No solid masses. There are multiple hepatic cysts. The largest on the right measures 1.4 cm. The largest on the left measures 3.2 cm. A few of them contain simple appearing septations and the occasional mural calcification. The gallbladder appears unremarkable without stones, wall thickening or pericholecystic fluid. The common duct is nondilated. The pancreas is not well seen. The right kidney appears unremarkable and measures 10.7 cm. IMPRESSION: HEPATIC STEATOSIS. MULTIPLE HEPATIC CYSTS ARE UNCHANGED ON THE LEFT AND SLIGHTLY INCREASED IN SIZE ON THE RIGHT. TD: 10/03/2017 11:11 MTDJo Ann
== END 2017-10-03 09:07 | disposition home or self-care (01) ==
LOC: DI 09:06
PROVIDERS: ATTEND Surgery
DX: K76.0 Fatty (change of) liver, not elsewhere classified (principal); K76.89 Other specified diseases of liver
CPT/HCPCS: 76705

== ENCOUNTER 2017-10-08 14:45 | Emergency (ER) | payer OTHER ==
[2017-10-08] MEDS ORDERED: SODIUM CHLORIDE 0.9% 1,000 ML IV ONE (15:16)
--- NOTE | 2017-10-08 15:19 | ED Physician Documentation ---
PD HPI CHEST PAIN - Stated complaint Stated Complaint: CHEST PX - Chief complaint Chief Complaint: Cardiac - History obtained from History obtained from: Patient, Family - History of Present Illness Timing - onset: Other (52-year-old gentleman undergoing chemotherapy for both colon and lung cancer. His last infusion was on Sunday and he was feeling poorly all weekend without vomiting but just poor appetite. He developed chest pressure yesterday and 2 the MAC clinic today I think for GM-CSF shots and was noted to be tachycardic with the complaint of chest pain. He says it is a chest tightness that is mild. It is not associated with shortness of breath. He denies any pedal edema or calf pain. No history of DVT or PE or heart problems.) Review of Systems Ten Systems: 10 systems reviewed and negative Constitutional: reports: Fatigue. denies: Fever, Chills Cardiac: reports: Chest pain / pressure. denies: Palpitations, Pedal edema, Calf pain Respiratory: denies: Dyspnea PD PAST MEDICAL HISTORY - Past Medical History Cardiovascular: None Respiratory: None Neuro: None Endocrine/Autoimmune: None GI: GERD : None HEENT: None Psych: None Musculoskeletal: None Derm: None - Past Surgical History Past Surgical History: Yes General: Bowel surgery Cardiovascular: Lobectomy HEENT: Other - Present Medications Home Medications: Ambulatory Orders Medication Instructions Recorded Confirmed Cholecalciferol [Vitamin D3] 5,000 unit PO DAILY 04/08/17 10/01/17 Polyethylene Glycol 3350 [Miralax] 17 gm PO ONCE PRN 06/11/17 10/01/17 Ondansetron HCl [Zofran] 8 mg PO Q8H PRN #30 tablet 09/13/17 10/01/17 Prochlorperazine Maleate 10 mg PO Q6H PRN #30 tablet 09/13/17 10/01/17 [Compazine] Levofloxacin [Levaquin] 750 mg PO DAILY #10 tablet 09/20/17 10/01/17 Omeprazole [PriLOSEC] 40 mg PO DAILY 09/20/17 10/01/17 - Allergies Allergies/Adverse Reactions: Allergies Allergy/AdvReac Type Severity Reaction Status Date / Time No Known Drug Allergies Allergy Verified 10/02/17 08:31 - Social History Does the pt smoke?: No Smoking Status: Never smoker Does the pt drink ETOH?: No Does the pt have substance abuse?: No - Family History Family history: reports: Non contributory PD ED PE NORMAL - Vitals Vital signs reviewed: Yes (Mildly tachycardic) - General General: Alert and oriented X 3, No acute distress - HEENT HEENT: PERRL, EOMI, Pharynx benign - Neck Neck: Supple, no meningeal sign, No bony TTP - Cardiac Cardiac: RRR, No murmur - Respiratory Respiratory: No respiratory distress, Clear bilaterally - Abdomen Abdomen: Non tender - Back Back: No CVA TTP, No spinal TTP - Derm Derm: Normal color, Warm and dry - Extremities Extremities: No edema, No calf tenderness / cord - Neuro Neuro: Alert and oriented X 3, Normal speech Results - Vitals Vitals: Vital Signs - 24 hr 10/08/17 15:04 Temperature 36.6 C Heart Rate 102 H Respiratory 18 Rate O2 Saturation 98 Oxygen O2 Source Room air - EKG (time done) 1453 Rate: Rate (enter#) (103) Rhythm: NSR (With PAC) [place]: Normal Intervals: Normal ND Ischemia: Normal ST segments Computer interpretation: Agree with computer - Labs Labs: Laboratory Tests 10/08/17 10/08/17 10/08/17 15:30 15:30 15:30 WBC 2.9 L RBC 4.52 L Hgb 12.9 L Hct 37.7 L MCV 83.4 MCH 28.4 MCHC 34.1 RDW 13.3 Plt Count 295 MPV 7.6 Neut # Not Reportable Lymph # Not Reportable [place] # Not Reportable Eos # Not Reportable Baso # Not Reportable Absolute Nucleated RBC Not Reportable Total Counted 100 Band Neuts % (Manual) 0 Abnorm Lymph % (Manual) 0 Nucleated RBC % Not Reportable Neutrophils # (Manual) 0.9 L Lymphocytes # (Manual) 1.8 Monocytes # (Manual) 0.1 Eosinophils # (Manual) 0.1 Basophils # (Manual) 0.1 Differential Comment MANUAL DIFFERENTIAL Manual Slide Review Indicated WBC Morphology NORMAL APPEARANCE Platelet Estimate NORMAL (130-450,000) Platelet Morphology NORMAL APPEARANCE RBC Morph Micro Appear NORMAL APPEARANCE Sodium 135 Potassium 3.3 L Chloride 101 Carbon Dioxide 26 Anion Gap 8.0 BUN 11 Creatinine 0.9 Estimated GFR (MDRD) 88 L Glucose 124 H Calcium 9.0 Total Bilirubin 0.7 AST 31 ALT 37 Alkaline Phosphatase 52 Troponin I < 0.04 Total Protein 7.5 Albumin 4.2 Globulin 3.3 Albumin/Globulin Ratio 1.3 Lipase 16 L - Rads (name of study) CTA Chest Radiology: EMP read contemporaneously (no PE) PD MEDICAL DECISION MAKING - ED course ED course: 52-year-old gentleman with ongoing treatments for cancer presents with a days worth of mild chest pressure. Major concern for pulmonary embolism and CT was done for same and negative, EKG is nonischemic. He was tachycardic, presumably due to poor appetite over the weekend after chemotherapeutic infusion, after a liter of saline his heart rate was in the mid 80s Departure - Departure Disposition: 01 Home, Self Care Clinical Impression: Dehydration Chest pain Qualifiers: Chest pain type: unspecified Qualified Code(s): R07.9 - Chest pain, unspecified Condition: Good Record reviewed to determine appropriate education?: Yes Instructions: ED Chest Pain NonCardiac Comments: Call your doctor to arrange a follow-up appointment, make the next available appointment. In the interim, return anytime if worse or if new symptoms develop.
[2017-10-08 15:37] LABS: BASOPHILS % (AUTO) 0.8 %; EOSINOPHILS % (AUTO) 3.8 %; HGB - HEMOGLOBIN 12.9 g/dL (14.0-18.0); LYMPHOCYTES % (AUTO) 53.5 %; MEAN CORPUSCULAR HEMOGLOBIN 28.4 pg (27.0-31.0); MEAN CORPUSCULAR HGB CONC 34.1 g/dL (32.0-36.0); MEAN CORPUSCULAR VOLUME 83.4 fL (80.0-94.0); MEAN PLATELET VOLUME 7.6 fL (7.4-11.4); MONOCYTES % (AUTO) 1.4 %; NEUTROPHILS % (AUTO) 40.5 %; PLT - PLATELET COUNT 295 10^3/uL (130-450); RED BLOOD COUNT 4.52 10^6/uL (4.70-6.10); RED CELL DISTRIBUTION WIDTH 13.3 % (12.0-15.0); WHITE BLOOD COUNT 2.9 x10^3/uL (4.8-10.8)
[2017-10-08 15:44] LABS: ABNORMAL LYMPHS % (MANUAL) 0 %; BAND NEUTROPHILS % (MANUAL) 0 %
[2017-10-08] MEDS ORDERED: IOPAMIDOL-300 100 ML VIAL ONE (15:45)
[2017-10-08 15:51] LABS: ALBUMIN 4.2 g/dL (3.2-5.5); ALBUMIN/GLOBULIN RATIO 1.3 (1.0-2.2); BILIRUBIN,TOTAL 0.7 mg/dL (0.2-1.0); CREATININE 0.9 mg/dL (0.6-1.2); TOTAL PROTEIN 7.5 g/dL (6.7-8.2)
[2017-10-08 15:59] LABS: BASOPHILS # (MANUAL) 0.1 10^3/uL (0-0.1); BASOPHILS % (MANUAL) 3 %; EOSINOPHILS # (MANUAL) 0.1 10^3/uL (0-0.7); LYMPHOCYTES # (MANUAL) 1.8 10^3/uL (1.5-3.5); LYMPHOCYTES % (MANUAL) 61 %; MONOCYTES # (MANUAL) 0.1 10^3/uL (0.0-1.0); NEUTROPHILS # (MANUAL) 0.9 10^3/uL (1.5-6.6); NEUTROPHILS % (MANUAL) 30 %; PLATELET ESTIMATE, MANUAL NORMAL (130-450,000) (NORMAL); PLATELET MORPHOLOGY NORMAL APPEARANCE (NORMAL); RBC MORPHOLOGY (MULTIPLE) NORMAL APPEARANCE (NORMAL)
[2017-10-08 16:00] LABS: DIFFERENTIAL COMMENT MANUAL DIFFERENTIAL
[2017-10-08] MEDS ORDERED: IOPAMIDOL-300 100 ML VIAL IVP ONE (16:31)
--- NOTE | 2017-10-08 16:42 | CT Report ---
EXAM: CT ANGIOGRAM CHEST EXAM DATE: 10/08/2017 04:31 PM. CLINICAL HISTORY: Chest pain. COMPARISON: 06/04/2017. TECHNIQUE: Routine helical imaging was performed through the chest in the pulmonary arterial phase. I V Contrast: Amt/type. Reconstructions: Coronal 3-D MIP reconstructions.Sagittal and coronal. In accordance with CT protocol optimization, one or more of the following dose reduction techniques w ere utilized for this exam: automated exposure control, adjustment of mA and/or KV based on patient s ize, or use of iterative reconstructive technique. FINDINGS: Pulmonary Arteries: Diagnostic quality: Adequate through the segmental arteries. No evidence for acute or chronic pulmona ry emboli. RV/LV is within normal limits. There is no interventricular septal bowing. There is no reflux of cont rast material in the IVC. Lungs/Pleura: No consolidation, nodules, or edema. No effusions or pneumothorax. Mediastinum: Normal. No cardiac enlargement or adenopathy. Thoracic Aorta: Unremarkable. Upper Abdomen: Fluid density foci within the liver could represent cysts. Visualized portions of the upper abdominal organs demonstrate no acute abnormalities. Esophagus is mildly patulous. Other: None. IMPRESSION: Negative pulmonary CT angiogram. No pulmonary emboli. [facility] Referring Provider Line: [phone] SITE ID: [id number]
[2017-10-08 17:11] VITALS: BP 132/84
== END 2017-10-08 17:11 | disposition home or self-care (01) ==
LOC: ED 14:45
DX: E86.0 Dehydration (principal); R07.9 Chest pain, unspecified; R00.0 Tachycardia, unspecified; C18.9 Malignant neoplasm of colon, unspecified; C34.90 Malignant neoplasm of unspecified part of unspecified bronchus or lung; Z92.21 Personal history of antineoplastic chemotherapy; Z90.2 Acquired absence of lung [part of]
CPT/HCPCS: 36415; 71275; 80053; 83690; 84484; 85025; 93005; 96361; 96374; 99283; 99284; Q9967

== ENCOUNTER 2018-04-12 06:00 | Day surgery (SDC) | payer OTHER ==
[2018-04-12] MEDS ORDERED: LACTATED RINGERS 1,000 ML IV ONE ×2 (06:41→08:38)
--- NOTE | 2018-04-12 07:01 | ANESTHESIA ---
Pre-Anesthesia VS, & Labs - Diagnosis Lung/colon cancer - Procedure Portacath removal, colonscopy Vital Signs: Temp Pulse Resp BP Pulse Ox 36.8 C 90 16 135/82 H 98 04/12/18 06:20 04/12/18 06:20 04/12/18 06:20 04/12/18 06:20 04/12/18 06:20 Height 5 ft 8 in Weight (kg) 73.5 kg Body Mass Index 22.9 - NPO >8 hours, Other (water at 0600) Home Medications and Allergies Home Medications: Ambulatory Orders Medication Instructions Recorded Confirmed Cholecalciferol [Vitamin D3] 5,000 unit PO DAILY 04/08/17 02/04/18 Omeprazole [PriLOSEC] 40 mg PO DAILY 09/20/17 02/04/18 Potassium Chloride [K-Dur] 20 meq PO BID #60 tablet 12/03/17 Multivitamin [Multiple Vitamins] 1 each PO 04/12/18 Cholecalciferol [Vitamin D3] 5,000 unit PO DAILY 04/08/17 Omeprazole [PriLOSEC] 40 mg PO DAILY 09/20/17 Multivitamin [Multiple Vitamins] 1 each PO 04/12/18 Allergies/Adverse Reactions: Allergies Allergy/AdvReac Type Severity Reaction Status Date / Time No Known Drug Allergies Allergy Verified 10/02/17 08:31 Anes History & Medical History - Anesthetic History Anesthesia Complications: reports: No previous complications Family history of Anesthesia Complications: Denies - Medical History Cardiovascular: reports: None Pulmonary: reports: None, Other (Hx of lung cancer) Gastrointestinal: reports: GERD Urinary: reports: None Neuro: reports: None Musculoskeletal: reports: None Endocrine/Autoimmune: reports: None Blood Disorders: reports: None Skin: reports: None Smoking Status: Never smoker Psychosocial: reports: No issues indicated - Surgical History General: Bowel surgery, Colonoscopy Eyes Ears Nose Throat (EENT): Other Cardiothoracic: Lobectomy Exam General: Alert Dental: WNL Mouth Opening: Greater than 4 Fingerbreadths Neck Mobility: Normal Mallampati classification: I Thyromental Distance: greater than 6 cm Respiratory: Lungs clear Cardiovascular: Regular rate Neurological: Normal speech Mental/Cognitive Status: Alert/Oriented X3 Cognitive Status: Within normal limits Plan Anesthesia Type: MAC Consent for Procedure(s) Verified and Reviewed: Yes Code Status: Attempt Resuscitation ASA classification: 2-Mild systemic disease Is this case an emergency?: No
[2018-04-12] MEDS ORDERED: BUPIVACAINE 0.5% PF 30 ML VIAL ONE (07:11)
--- NOTE | 2018-04-12 07:44 | HISTORY & PHYSICAL EXAMINATION ---
HPI - History of Present Illness HPI Comment/Other: Mr. Rangel Is here in consultation for a follow-up colonoscopy and port removal. The patient was diagnosed with stage II colon cancer approximately 1 year ago. He underwent a left hemicolectomy in February 2017.He was referred to the oncology department and his CEA was followed and was noted to be persistently elevated. This subsequently prompted a CT scan of the chest abdomen pelvis which demonstrated a lung nodule. This turned out to be primary lung cancer and he subsequently underwent resection for this. He required chemotherapy for his lung cancer and has recently completed this. He is here today to schedule his 1 year follow-up colonoscopy and removal of his port.He denies any changes in his bowel habits other than persistent constipation from his chemotherapy. He does take MiraLAX daily. He denies any blood in his stools. Current Meds: SUPREP BOWEL PREP KIT 17.5-3.13-1.6 GM/180ML ORAL SOLUTION (NA SULFATE-K SULFATE-MG SULF) Take one (6oz) bottle by mouth the PM before colonoscopy & one (6oz) bottle by mouth the AM of colonoscopy as directed by surgical clinic VITAMIN D 1000 UNIT ORAL TABLET (CHOLECALCIFEROL) Take 5000 unit tablet by mouth daily for vit D deficiency Past Medical History: Reviewed history from 01/15/2017 and no changes required: Acid Reflux Anxiety Panic Attacks Claustrophobia Past Surgical History: Reviewed history and no changes required: Colon Lung Port placement Family History Summary: Mother (aj.) - Has Family History of Other Diseases - Cancer - Entered On: 02/21/2018 General Comments - FH: Mother throat cancer. Sister gastric cancer Risk Factors: Smoked Tobacco Use: Former smoker Cigarettes: Yes Years smoked: 2005 Drug use: no Alcohol use: no Exercise: yes Type of Exercise: biking, walking, lifting weights Physical Exam General: well developed, well nourished, in no acute distress Chest Wall: right anterior chest wall port Lungs: clear bilaterally to A & P Heart: regular rate and rhythm, S1, S2 without murmurs, rubs, gallops, or clicks Abdomen: bowel sounds positive; abdomen soft and non-tender without masses, organomegaly, or hernias noted Pulses: pulses normal in all 4 extremities Extremities: no clubbing, cyanosis, edema, or deformity noted with normal full range of motion of all joints Cervical Nodes: no significant adenopathy Psych: alert and cooperative; normal mood and affect; normal attention span and concentration Impression & Recommendations: Problem # 1: history of colon cancer The patient is due for his surveillance colonoscopy. I have explained the colonoscopy procedure to the patient in detail and the risks involved, including but not limited to bleeding, perforated viscus and missing lesions. The patient understands the above and has agreed to proceed with the procedure. Colon prep instructions and prescription provided. Approximately 20 minutes spent in preparing the patient; all Questions and concerns were addressed. Problem # 2: Port for chemotherapy The patient's port will be removed prior to his colonoscopy. The procedure was explained to the patient in detail including potential risks involved including but not limited to bleeding infection. He understands and agrees to proceed. PMH/PSH - Past Medical History Cardiovascular: positive: None Respiratory: positive: None, Other (Hx of lung cancer) Neuro: positive: None Endocrine/Autoimmune: positive: None GI: positive: GERD : positive: None HEENT: positive: None Psych: positive: None Musculoskeletal: positive: None Derm: positive: None MRSA Hx?: No - Past Surgical History General: positive: Bowel surgery, Colonoscopy Cardiovascular: positive: Lobectomy HEENT: positive: Other Social & Family Hx - Social History Does the pt smoke?: No Smoking Status: Never smoker Does the pt drink ETOH?: No Does the pt have substance abuse?: No Meds/Allgy - Home Medications Home Medications: Ambulatory Orders Medication Instructions Recorded Confirmed Cholecalciferol [Vitamin D3] 5,000 unit PO DAILY 04/08/17 02/04/18 Omeprazole [PriLOSEC] 40 mg PO DAILY 09/20/17 02/04/18 Potassium Chloride [K-Dur] 20 meq PO BID #60 tablet 12/03/17 Multivitamin [Multiple Vitamins] 1 each PO 04/12/18 - Allergies Allergies/Adverse Reactions: Allergies Allergy/AdvReac Type Severity Reaction Status Date / Time No Known Drug Allergies Allergy Verified 10/02/17 08:31 Exam - Vital Signs Vital Signs: Vital Signs x48h Temp Pulse Resp BP Pulse Ox 04/12/18 06:20 36.8 C 90 16 135/82 H 98
[2018-04-12] MEDS ORDERED: BUPIVACAINE 0.5% PF 30 ML VIAL INFIL ONE ×2 (07:52)
[2018-04-12] MEDS ORDERED: MIDAZOLAM 2 MG/2 ML VIAL IVP ONE (08:40)
[2018-04-12] MEDS ORDERED: PROPOFOL 200 MG/20 ML VIAL IVP ONE (08:40)
[2018-04-12] MEDS ORDERED: LIDOCAINE-MPF 2% 5 ML VIAL IM ONE (08:40)
[2018-04-12 09:16] VITALS: BP 124/65
--- NOTE | 2018-04-12 09:17 | OPERATIVE REPORT ---
Operative Report - General Procedure Date: 04/12/18 Pre-Op Diagnosis: colon cancer Procedure Performed: Port removal - Procedure Note Primary Surgeon: Ana Anesthesia Provider: Edi - Other Other Information/Narrative: After obtaining informed consent the patient was positioned on the operating table and prepped and draped in the usual sterile fashion. He was administered sedation. A timeout was taken according to protocol. 10 cc of local anesthetic was infiltrated at the incisional scar on the anterior chest wall. A 2 cm incision was created overlying the port scar. This was deepened down with a hemostat to the underlying port. The port was excised from its surrounding capsule with Metzenbaum dissection. The Prolene stay sutures were removed. The port was then exteriorized and the port and catheter were completely removed. Pressure was held at the insertion site for approximately 1 minute. No bleeding was noted upon removal of pressure. The cavity was inspected for any signs of bleeding hemostasis was noted to be achieved. The incision was then closed with 3-0 Vicryl and 4-0 Monocryl. Dermabond was applied. I then moved onto the colonoscopy portion of the procedure which will be dictated separately.
== END 2018-04-12 06:01 | disposition home or self-care (01) ==
LOC: SDS 06:00
PROVIDERS: ATTEND Surgery
PROC: 0DBN8ZZ Excision of Sigmoid Colon, Via Natural or Artificial Opening Endoscopic (ICD-10-PCS; 2018-04-12)
PROC: 0JPT0WZ Removal of Totally Implantable Vascular Access Device from Trunk Subcutaneous Tissue and Fascia, Open Approach (ICD-10-PCS; principal; 2018-04-12 07:30)
PROC: 05PY03Z Removal of Infusion Device from Upper Vein, Open Approach (ICD-10-PCS; 2018-04-12 07:30)
DX: C18.6 Malignant neoplasm of descending colon (principal); C34.90 Malignant neoplasm of unspecified part of unspecified bronchus or lung; Z90.49 Acquired absence of other specified parts of digestive tract; Z98.0 Intestinal bypass and anastomosis status; Z87.891 Personal history of nicotine dependence; Z90.2 Acquired absence of lung [part of]
CPT/HCPCS: 36590; 45385; J7120

== ENCOUNTER 2018-06-01 07:58 | Emergency (ER) | payer OTHER ==
[2018-06-01 08:41] LABS: BASOPHILS % (AUTO) 0.5 %; EOSINOPHILS # (AUTO) 0.1 10^3/uL (0.0-0.7); EOSINOPHILS % (AUTO) 1.5 %; HGB - HEMOGLOBIN 14.6 g/dL (14.0-18.0); LYMPHOCYTES # (AUTO) 2.5 10^3/uL (1.5-3.5); LYMPHOCYTES % (AUTO) 29.5 %; MEAN CORPUSCULAR HEMOGLOBIN 28.3 pg (27.0-31.0); MEAN CORPUSCULAR HGB CONC 33.7 g/dL (32.0-36.0); MEAN CORPUSCULAR VOLUME 84.1 fL (80.0-94.0); MEAN PLATELET VOLUME 7.3 fL (7.4-11.4); MONOCYTES # (AUTO) 0.5 10^3/uL (0.0-1.0); MONOCYTES % (AUTO) 6.1 %; NEUTROPHILS # (AUTO) 5.2 10^3/uL (1.5-6.6); NEUTROPHILS % (AUTO) 62.4 %; PLT - PLATELET COUNT 252 10^3/uL (130-450); RED BLOOD COUNT 5.17 10^6/uL (4.70-6.10); RED CELL DISTRIBUTION WIDTH 15.1 % (12.0-15.0); WHITE BLOOD COUNT 8.4 x10^3/uL (4.8-10.8)
[2018-06-01 09:02] LABS: ALBUMIN 4.7 g/dL (3.2-5.5); ALBUMIN/GLOBULIN RATIO 1.3 (1.0-2.2); BILIRUBIN,TOTAL 0.8 mg/dL (0.2-1.0); CALCIUM 9.2 mg/dL (8.5-10.3); TOTAL PROTEIN 8.3 g/dL (6.7-8.2)
[2018-06-01] MEDS ORDERED: LIDOCAINE VISCOUS 2% 15 ML UDC MM STA (09:58)
[2018-06-01] MEDS ORDERED: MAG HYDROX/AL HYDROX/SIMETH 30 ML UDC PO STA (09:58)
[2018-06-01] MEDS ORDERED: FAMOTIDINE 20 MG/50 ML 50 ML IV ONE (09:58)
--- NOTE | 2018-06-01 10:03 | ED Physician Documentation ---
History of Present Illness - Stated complaint Stated Complaint: ABD PX - Chief complaint Chief Complaint: Abd Pain - Additonal information Additional information: hx from pt very nice 53 male with a hx of lung and colon cancer recent onc fup showed neg CT chest abd pelvis - no cancer recurrence and ACT AP neg except liver cysts he also has had wt gain and this was already addressed by oncology he also has a hx of gastritis/PUD - last EGD about a year ago was fine to ED today for epigastric to LUQ pain since overeating yesterday - very similar to prior PUD gastritis no rad to chest or back no fever no NVD no urinary sx Review of Systems Constitutional: denies: Fever, Chills Cardiac: denies: Chest pain / pressure Respiratory: denies: Dyspnea GI: reports: Abdominal Pain. denies: Nausea, Vomiting, Diarrhea : denies: Dysuria Musculoskeletal: denies: Back pain PD PAST MEDICAL HISTORY - Past Medical History Cardiovascular: None Respiratory: None, Other Neuro: None Endocrine/Autoimmune: None GI: GERD : None HEENT: None Psych: None Musculoskeletal: None Derm: None Other Past Medical History: hx lung and colon cancer - Past Surgical History Past Surgical History: Yes General: Bowel surgery, Colonoscopy Cardiovascular: Lobectomy HEENT: Other - Present Medications Home Medications: Ambulatory Orders Medication Instructions Recorded Confirmed Cholecalciferol [Vitamin D3] 5,000 unit ORAL DAILY 04/08/17 05/27/18 Omeprazole [PriLOSEC] 40 mg PO DAILY 09/20/17 05/27/18 Potassium Chloride [K-Dur] 20 meq PO BID #60 tablet 12/03/17 05/27/18 Multivitamin [Multiple Vitamins] 1 each ORAL DAILY 04/12/18 05/27/18 Gabapentin . 1 tab ORAL TID 05/20/18 05/27/18 Sucralfate [Carafate] 1 gm PO ACHS #120 tablet 06/01/18 raNITIdine [Zantac] 150 mg PO BID #60 tablet 06/01/18 - Allergies Allergies/Adverse Reactions: Allergies Allergy/AdvReac Type Severity Reaction Status Date / Time No Known Drug Allergies Allergy Verified 06/01/18 08:08 - Social History Does the pt smoke?: No Smoking Status: Never smoker Does the pt drink ETOH?: No Does the pt have substance abuse?: No PD ED PE NORMAL - Vitals Vital signs reviewed: Yes - Neck Neck: Supple, no meningeal sign - Cardiac Cardiac: RRR - Respiratory Respiratory: No respiratory distress - Abdomen Abdomen: Soft, Other (mild TTP upper abd epigastric to LUQ no pulsatile mass no peritoneal sx) Results - Vitals Vitals: Vital Signs - 24 hr 06/01/18 08:03 Temperature 36.5 C Heart Rate 98 Respiratory 14 Rate Blood Pressure 146/94 H O2 Saturation 97 Oxygen O2 Source Room air - Labs Labs: Laboratory Tests 06/01/18 06/01/18 06/01/18 08:33 08:33 08:33 WBC 8.4 RBC 5.17 Hgb 14.6 Hct 43.4 MCV 84.1 MCH 28.3 MCHC 33.7 RDW 15.1 H Plt Count 252 MPV 7.3 L Neut # (Auto) 5.2 Lymph # (Auto) 2.5 [place] # (Auto) 0.5 Eos # (Auto) 0.1 Baso # (Auto) 0.0 Absolute Nucleated RBC 0.00 Nucleated RBC % 0.0 Sodium 136 Potassium 3.7 Chloride 101 Carbon Dioxide 26 Anion Gap 9.0 BUN 12 Creatinine 1.0 Estimated GFR (MDRD) 78 L Glucose 118 H Calcium 9.2 Total Bilirubin 0.8 AST 31 ALT 29 Alkaline Phosphatase 59 Troponin I < 0.04 Total Protein 8.3 H Albumin 4.7 Globulin 3.6 Albumin/Globulin Ratio 1.3 Lipase 26 PD MEDICAL DECISION MAKING - ED course ED course: nl labs normal CT within last week hx same sx with gastritis reassuring exam denies EtOH and NSAIDS no rad to chest and abd is TTP so doubt cardiac pain referred Departure - Departure Disposition: 01 Home, Self Care Clinical Impression: Gastritis Qualifiers: Gastritis type: unspecified gastritis Chronicity: acute Gastritis bleeding: without bleeding Qualified Code(s): K29.00 - Acute gastritis without bleeding Condition: Good Instructions: ED PUD Vs Gastritis Follow-Up: ZAK LANDEROS [Primary Care Provider] - Prescriptions: raNITIdine [Zantac] 150 mg PO BID #60 tablet Sucralfate [Carafate] 1 gm PO ACHS #120 tablet Comments: The labs today and your recent CT scans were fine You state you have had similar symptoms with gastritis before so I have prescribed medication for that Please follow up with your PMD for a recheck next week
[2018-06-01] MEDS ORDERED: FAMOTIDINE 20 MG TABLET PO STA (10:08)
[2018-06-01 12:17] VITALS: BP 131/102
== END 2018-06-01 12:17 | disposition home or self-care (01) ==
LOC: ED 07:58
DX: K29.00 Acute gastritis without bleeding (principal); Z85.038 Personal history of other malignant neoplasm of large intestine; Z85.118 Personal history of other malignant neoplasm of bronchus and lung
CPT/HCPCS: 36415; 80053; 83690; 84484; 85025; 99283; A9270

== ENCOUNTER 2018-10-25 22:55 | Outpatient (CLI) | payer OTHER ==
--- NOTE | 2018-10-26 01:28 | Ultrasound Report ---
Reason: NODULE,INCREASED CEA,LUNG AND COLON CANCER Procedure Date: 10/25/2018 Accession Number: [id number] / [id number] Procedure: US - Head or Neck Soft Tissue CPT Code: FULL RESULT: EXAM: THYROID ULTRASOUND EXAM DATE: 10/25/2018 11:55 PM. CLINICAL HISTORY: NODULE,INCREASED CEA,LUNG AND COLON CANCER. COMPARISON: None. TECHNIQUE: Real time sonographic imaging of the thyroid was performed by the mobile equipment servicer. Multiple business representative static images were saved for review. FINDINGS: THYROID GLAND: Right Lobe: 5.8 x 1.8 x 2.2 cm, volume 11.3 cc. There is a small solid avascular nodule in the mid right lobe measuring 4 mm x 3 mm x 3 mm. There is a solid nodule along the inferior medial, mid aspect of the right lobe with eccentric foci. This is vascular. The borders are not clearly defined. Nodule measures 9 mm x 8 mm x 7 mm. In the inferior right lobe somewhat more lateral there is a spongiform nodule measuring 8 mm x 6 mm x 8 mm. Increased vascularity. Also in the inferior aspect of the right lobe along the medial aspect there is a complex mass measuring 7 mm x 4 mm x 6 mm. Left Lobe: 5.1 x 1.9 x by 1.4 cm, volume 7.0 cc. Normal background echotexture. Left Lobe Nodules: None. Isthmus: 0.34 cm AP. Isthmic Nodules: None. LYMPH NODES: No adenopathy demonstrated in the central or lateral compartment. OTHER: None. IMPRESSION: 1. Four Small nodules in the right mid and right lower aspect of the thyroid. [facility]
== END 2018-10-25 22:56 | disposition home or self-care (01) ==
LOC: DI 22:55
PROVIDERS: ATTEND Internal Medicine Hematology & Oncology
DX: E04.2 Nontoxic multinodular goiter (principal); C34.90 Malignant neoplasm of unspecified part of unspecified bronchus or lung
CPT/HCPCS: 76536

== ENCOUNTER 2019-03-30 20:57 | Emergency (ER) | payer OTHER ==
[2019-03-30] MEDS ORDERED: MAG HYDROX/AL HYDROX/SIMETH 30 ML UDC PO STA (21:14)
[2019-03-30] MEDS ORDERED: LIDOCAINE VISCOUS 2% 15 ML UDC MM STA (21:14)
[2019-03-30 21:29] LABS: BASOPHILS # (AUTO) 0.1 10^3/uL (0.0-0.1); BASOPHILS % (AUTO) 0.7 %; EOSINOPHILS # (AUTO) 0.1 10^3/uL (0.0-0.7); EOSINOPHILS % (AUTO) 1.8 %; HGB - HEMOGLOBIN 14.3 g/dL (14.0-18.0); LYMPHOCYTES # (AUTO) 3.2 10^3/uL (1.5-3.5); LYMPHOCYTES % (AUTO) 42.7 %; MEAN CORPUSCULAR HEMOGLOBIN 29.1 pg (27.0-31.0); MEAN CORPUSCULAR HGB CONC 33.9 g/dL (32.0-36.0); MEAN CORPUSCULAR VOLUME 85.8 fL (80.0-94.0); MEAN PLATELET VOLUME 9.4 fL (7.4-11.4); MONOCYTES # (AUTO) 0.6 10^3/uL (0.0-1.0); MONOCYTES % (AUTO) 7.7 %; NEUTROPHILS # (AUTO) 3.5 10^3/uL (1.5-6.6); NEUTROPHILS % (AUTO) 46.8 %; PLT - PLATELET COUNT 242 10^3/uL (130-450); RED BLOOD COUNT 4.92 10^6/uL (4.70-6.10); RED CELL DISTRIBUTION WIDTH 12.6 % (12.0-15.0); WHITE BLOOD COUNT 7.4 x10^3/uL (4.8-10.8)
--- NOTE | 2019-03-30 21:29 | ED Physician Documentation ---
PD HPI CHEST PAIN - Stated complaint Stated Complaint: TIGHT CHEST - Chief complaint Chief Complaint: Resp - History obtained from History obtained from: Patient - History of Present Illness Timing - onset: How many days ago (2) Timing - onset during: Other Timing - duration: Days (2) Timing - details: Intermittant Quality: Tightness Location: Substernal Worsened by: Inspiration Similar symptoms before: Diagnosis (He reports history of similar chest tightness in September 2017 when he was diagnosed with pneumonia.) - Additional information Additional information: The patient is a 54-year-old male with a history of lung cancer treated with chemotherapy, who presents with chest tightness that has been occurring with respiratory inspiration intermittently for the past 2 days. He denies associated shortness of breath, cough, or fever. He denies nausea or vomiting. He reports history of similar chest tightness in September 2017 when he was diagnosed with pneumonia. In addition to primary lung cancer he has a history of colon cancer. He has a history of "acid reflux" for which he takes Nexium. He has recently been taking tumeric, which he states worsens his acid indigestion. Review of Systems Constitutional: denies: Fever Ears: denies: Tinnitus/ringing Nose: denies: Congestion Throat: denies: Sore throat Cardiac: reports: Chest pain / pressure. denies: Palpitations Respiratory: denies: Dyspnea, Cough GI: denies: Abdominal Pain, Nausea, Vomiting : denies: Dysuria Skin: denies: Rash Musculoskeletal: denies: Back pain Neurologic: denies: Focal weakness, Numbness, Headache PD PAST MEDICAL HISTORY - Past Medical History Past Medical History: Yes Cardiovascular: None Respiratory: Other (Lung cancer, treated with chemotherapy.) Neuro: None Endocrine/Autoimmune: None GI: GERD, Other (Colon cancer) : None HEENT: None Psych: None Musculoskeletal: None Derm: None - Past Surgical History Past Surgical History: Yes General: Bowel surgery, Colonoscopy Cardiovascular: Lobectomy HEENT: Other - Present Medications Home Medications: Ambulatory Orders Medication Instructions Recorded Confirmed Cholecalciferol [Vitamin D3] 5,000 unit ORAL DAILY 04/08/17 03/10/19 Omeprazole [PriLOSEC] 40 mg PO DAILY 09/20/17 03/10/19 Multivitamin [Multiple Vitamins] 1 each ORAL DAILY 04/12/18 03/10/19 Sucralfate [Carafate] 1 gm PO ACHS #120 tablet 06/01/18 03/10/19 raNITIdine [Zantac] 150 mg PO BID #60 tablet 06/01/18 03/10/19 - Allergies Allergies/Adverse Reactions: Allergies Allergy/AdvReac Type Severity Reaction Status Date / Time No Known Drug Allergies Allergy Verified 03/30/19 21:03 - Social History Does the pt smoke?: No Smoking Status: Never smoker Does the pt drink ETOH?: No Does the pt have substance abuse?: No PD ED PE NORMAL - Vitals Vital signs reviewed: Yes (Hypertensive) - General General: Alert and oriented X 3, Well developed/nourished, Other (Appears somewhat anxious.) - HEENT HEENT: Atraumatic, Pharynx benign - Neck Neck: No adenopathy, No JVD - Cardiac Cardiac: RRR, No murmur - Respiratory Respiratory: No respiratory distress, Clear bilaterally - Abdomen Abdomen: Soft, Non tender - Back Back: No CVA TTP - Derm Derm: No rash - Extremities Extremities: No edema, No calf tenderness / cord - Neuro Neuro: Alert and oriented X 3, No motor deficit, Normal speech Results - Vitals Vitals: Vital Signs - 24 hr 03/30/19 03/30/19 03/30/19 21:03 21:17 22:02 Heart Rate 97 92 75 Respiratory 16 19 16 Rate Blood Pressure 163/100 H 147/92 H 117/88 H O2 Saturation 99 97 97 Oxygen O2 Source Room air - EKG (time done) 21:02 Rate: Rate (enter#) (97) Rhythm: NSR [place]: RAD (+133.) Intervals: Normal MI Ischemia: T wave inversion (in lead III.) Compare to prior EKG: Unchanged from prior EKG - Labs Labs: Laboratory Tests 03/30/19 03/30/19 03/30/19 21:25 21:25 21:25 WBC 7.4 RBC 4.92 Hgb 14.3 Hct 42.2 MCV 85.8 MCH 29.1 MCHC 33.9 RDW 12.6 Plt Count 242 MPV 9.4 Neut # (Auto) 3.5 Lymph # (Auto) 3.2 [place] # (Auto) 0.6 Eos # (Auto) 0.1 Baso # (Auto) 0.1 Absolute Nucleated RBC 0.00 Nucleated RBC % 0.0 Sodium 139 Potassium 3.4 L Chloride 103 Carbon Dioxide 27 Anion Gap 9.0 BUN 15 Creatinine 1.0 Estimated GFR (MDRD) 77 L Glucose 107 H Calcium 9.3 Total Bilirubin 0.4 AST 23 ALT 25 Alkaline Phosphatase 59 Troponin I High Sens 2.4 Total Protein 7.9 Albumin 4.5 Globulin 3.4 Albumin/Globulin Ratio 1.3 Lipase 31 - Rads (name of study) 1-view CXR Radiology: Prelim report reviewed, EMP read contemporaneously, See rad report (No acute cardiopulmonary process.) PD MEDICAL DECISION MAKING - ED course Complexity details: reviewed old records, reviewed results, re-evaluated patient, considered differential, d/w patient, d/w family ED course: The patient's presentation is most consistent with gastroesophageal reflux disease. His electrocardiogram reveals no acute ischemic abnormalities, and his high-sensitivity troponin is negative. Chest x-ray reveals no acute cardiopulmonary abnormality. Treatment in the emergency department included administration of GI cocktail, which completely relieved his symptoms. I discussed with him and his the diagnosis, symptomatic treatment and outpatient follow-up, as well as potentially worrisome signs or symptoms that should prompt reevaluation in the emergency department. Departure - Departure Disposition: 01 Home, Self Care Clinical Impression: GERD (gastroesophageal reflux disease) Qualifiers: Esophagitis presence: esophagitis presence not specified Qualified Code(s): K21.9 - Gastro-esophageal reflux disease without esophagitis Condition: Stable Instructions: ED GERD Follow-Up: NICKIE Trevizo [Provider Group] Comments: If you develop recurrent symptoms try using liquid antacid, such as Maalox or Mylanta. Follow-up with your primary physician within 1 to 2 weeks. Call to schedule an appointment. Return to the emergency department if you develop increasing chest pain, shortness of breath, or otherwise worsening symptoms. Discharge Date/Time: 03/30/19 22:05
[2019-03-30 21:43] LABS: ALBUMIN 4.5 g/dL (3.2-5.5); ALBUMIN/GLOBULIN RATIO 1.3 (1.0-2.2); BILIRUBIN,TOTAL 0.4 mg/dL (0.2-1.0); CALCIUM 9.3 mg/dL (8.5-10.3); TOTAL PROTEIN 7.9 g/dL (6.7-8.2)
--- NOTE | 2019-03-30 21:51 | XRAY Report ---
Reason: chest pain Procedure Date: 03/30/2019 Accession Number: [id number] / [id number] Procedure: XR - Chest 1 View X-Ray CPT Code: 76643 FULL RESULT: EXAM: CHEST RADIOGRAPHY EXAM DATE: 03/30/2019 09:31 PM. CLINICAL HISTORY: Chest pain. COMPARISON: CHEST 2 VIEW 09/20/2017 8:25 PM. TECHNIQUE: 1 view. FINDINGS: Lungs/Pleura: No focal opacities evident. No pleural effusion. No pneumothorax. Mediastinum: Within exam limitations, the cardiomediastinal contour is normal. Other: None. IMPRESSION: No acute cardiopulmonary process. RADIA
[2019-03-30 22:05] VITALS: BP 117/88
== END 2019-03-30 22:05 | disposition home or self-care (01) ==
LOC: ED 20:57
DX: K21.9 Gastro-esophageal reflux disease without esophagitis (principal)
CPT/HCPCS: 36415; 71045; 80053; 83690; 84484; 85025; 93005; 99283; 99284; A9270

== ENCOUNTER 2019-10-08 23:02 | Inpatient (IN) | payer OTHER ==
--- NOTE | 2019-10-08 23:13 | ED Physician Documentation ---
History of Present Illness - Stated complaint Stated Complaint: ABD PX - Chief complaint Chief Complaint: Abd Pain - History obtained from History obtained from: Patient (The patient is a 54 y/o m who p/w a cc of abd pain. The patient presents with a 2-day history of nausea, vomiting abdominal distention and decreased bowel movements. He states he has a history of colon cancer with surgical resection as well as lung cancer with surgical resection to his left lung. He denies chest pain or shortness of breath or worsening abdominal pain and distention. patient reports his colectomy was performed here.) Review of Systems Constitutional: reports: Reviewed and negative Eyes: reports: Reviewed and negative Ears: reports: Reviewed and negative Nose: reports: Reviewed and negative Throat: reports: Reviewed and negative Cardiac: reports: Reviewed and negative Respiratory: reports: Reviewed and negative GI: reports: Abdominal Pain, Abdominal Swelling, Nausea, Vomiting : reports: Reviewed and negative Skin: reports: Reviewed and negative Musculoskeletal: reports: Reviewed and negative Neurologic: reports: Reviewed and negative Psychiatric: reports: Reviewed and negative Endocrine: reports: Reviewed and negative Immunocompromised: reports: Reviewed and negative PD PAST MEDICAL HISTORY - Past Medical History Cardiovascular: None Respiratory: Other Neuro: None Endocrine/Autoimmune: None GI: GERD, Other : None HEENT: None Psych: None Musculoskeletal: None Derm: None - Past Surgical History Past Surgical History: Yes General: Bowel surgery, Colonoscopy Cardiovascular: Lobectomy HEENT: Other - Present Medications Home Medications: Ambulatory Orders Medication Instructions Recorded Confirmed Cholecalciferol [Vitamin D3] 5,000 unit ORAL DAILY 04/08/17 06/23/19 Omeprazole [PriLOSEC] 40 mg PO DAILY 09/20/17 06/23/19 Multivitamin [Multiple Vitamins] 1 each ORAL DAILY 04/12/18 06/23/19 Sucralfate [Carafate] 1 gm PO ACHS #120 tablet 06/01/18 06/23/19 raNITIdine [Zantac] 150 mg PO BID #60 tablet 06/01/18 06/23/19 - Allergies Allergies/Adverse Reactions: Allergies Allergy/AdvReac Type Severity Reaction Status Date / Time No Known Drug Allergies Allergy Verified 10/08/19 23:09 - Social History Does the pt smoke?: No Smoking Status: Never smoker Does the pt drink ETOH?: No Does the pt have substance abuse?: No PD ED PE NORMAL - Vitals Vital signs reviewed: Yes - General General: Alert and oriented X 3, No acute distress, Well developed/nourished - HEENT HEENT: Atraumatic, PERRL, Moist mucous membranes - Neck Neck: Supple, no meningeal sign, No adenopathy - Cardiac Cardiac: RRR, No murmur, Strong equal pulses - Respiratory Respiratory: No respiratory distress, Clear bilaterally - Abdomen Abdomen: Other (The abdomen is diffusely distended and tympanic, no midline abdominal pulsatile mass there is no hepatosplenomegaly no CVA tenderness since diffusely tender there is diminished bowel sounds scar consistent with previous abdominal surgeries.) - Back Back: No CVA TTP, No spinal TTP - Derm Derm: Normal color, Warm and dry, No rash - Extremities Extremities: No deformity, No tenderness to palpate, No edema, No calf tenderness / cord - Neuro Neuro: Alert and oriented X 3, chancellor 2-12 intact, No motor deficit, No sensory deficit, Normal speech - Psych Psych: Normal mood, Normal affect Results - Vitals Vitals: Vital Signs - 24 hr 10/08/19 10/09/19 23:06 00:05 Temperature 37.4 C Heart Rate 143 H 105 H Respiratory 16 16 Rate Blood Pressure 142/87 H 144/96 H O2 Saturation 95 95 Oxygen O2 Source Room air - EKG (time done) 2323 Rate: Other (no stemi) - Labs Labs: Laboratory Tests 10/08/19 10/08/19 10/08/19 23:30 23:30 23:30 WBC 12.4 H RBC 5.53 Hgb 16.2 Hct 47.2 MCV 85.4 MCH 29.3 MCHC 34.3 RDW 12.6 Plt Count 297 MPV 9.2 Neut # (Auto) 9.0 H Lymph # (Auto) 1.7 [place] # (Auto) 1.4 H Eos # (Auto) 0.3 Baso # (Auto) 0.0 Absolute Nucleated RBC 0.00 Nucleated RBC % 0.0 PT 12.7 H INR 1.1 APTT 25.2 Sodium 135 Potassium 3.2 L Chloride 98 L Carbon Dioxide 23 Anion Gap 14.0 H BUN 22 H Creatinine 1.1 Estimated GFR (MDRD) 69 L Glucose 146 H Lactic Acid Calcium 8.9 Magnesium 2.3 Total Bilirubin 1.0 Direct Bilirubin 0.2 AST 31 ALT 27 Alkaline Phosphatase 63 Total Creatine Kinase 248 Troponin I High Sens Total Protein 8.4 H Albumin 4.5 Globulin 3.9 Lipase 22 Urine Color Urine Clarity Urine pH Ur Specific [place] Urine Protein Urine Glucose (UA) Urine Ketones Urine Occult Blood Urine Nitrite Urine Bilirubin Urine Urobilinogen Ur Leukocyte Esterase Ur Microscopic Review Urine Culture Comments 10/08/19 10/08/19 10/09/19 23:30 23:30 00:50 WBC RBC Hgb Hct MCV MCH MCHC RDW Plt Count MPV Neut # (Auto) Lymph # (Auto) [place] # (Auto) Eos # (Auto) Baso # (Auto) Absolute Nucleated RBC Nucleated RBC % PT INR APTT Sodium Potassium Chloride Carbon Dioxide Anion Gap BUN Creatinine Estimated GFR (MDRD) Glucose Lactic Acid 1.5 Calcium Magnesium Total Bilirubin Direct Bilirubin AST ALT Alkaline Phosphatase Total Creatine Kinase Troponin I High Sens 6.0 Total Protein Albumin Globulin Lipase Urine Color YELLOW Urine Clarity CLEAR Urine pH 6.0 Ur Specific [place] <1.005 Urine Protein NEGATIVE Urine Glucose (UA) NEGATIVE Urine Ketones NEGATIVE Urine Occult Blood NEGATIVE Urine Nitrite NEGATIVE Urine Bilirubin NEGATIVE Urine Urobilinogen 0.2 (NORMAL) Ur Leukocyte Esterase NEGATIVE Ur Microscopic Review NOT INDICATED Urine Culture Comments NOT INDICATED PD MEDICAL DECISION MAKING - ED course Complexity details: considered differential (History and physical are concerning for bowel obstruction.) - Consults Consults: Consulted (name) (dr. martinez. will admit.), Discussed case with (dr corcoran general surgery, will stay on as consult.), Request edi consultant admit patient - Critical Care Time(min): 30 Time Includes: Direct patient care, Review records, Reassess patient, Document care, Coordinate care, Medical consult Data interpretation: Labs Procedures included in critical care time: Peripheral IV Departure - Departure Disposition: 66 [facility] DC/Xfer Clinical Impression: SBO (small bowel obstruction) Condition: Stable Discharge Date/Time: 10/09/19 02:02
[2019-10-08] MEDS ORDERED: SODIUM CHLORIDE 0.9% 1,000 ML IV ONE (23:25)
[2019-10-08] MEDS ORDERED: ONDANSETRON 4 MG/2 ML VIAL IVP STA (23:25)
[2019-10-08] MEDS ORDERED: MORPHINE 2 MG/ML CARPUJECT IVP STA (23:25)
[2019-10-08] MEDS ORDERED: IOVERSOL 320 100 ML VIAL IVP ONE (23:34)
[2019-10-08 23:42] LABS: BASOPHILS % (AUTO) 0.2 %; EOSINOPHILS # (AUTO) 0.3 10^3/uL (0.0-0.7); HGB - HEMOGLOBIN 16.2 g/dL (14.0-18.0); LYMPHOCYTES # (AUTO) 1.7 10^3/uL (1.5-3.5); LYMPHOCYTES % (AUTO) 13.5 %; MEAN CORPUSCULAR HEMOGLOBIN 29.3 pg (27.0-31.0); MEAN CORPUSCULAR HGB CONC 34.3 g/dL (32.0-36.0); MEAN CORPUSCULAR VOLUME 85.4 fL (80.0-94.0); MEAN PLATELET VOLUME 9.2 fL (7.4-11.4); MONOCYTES # (AUTO) 1.4 10^3/uL (0.0-1.0); MONOCYTES % (AUTO) 11.3 %; NEUTROPHILS % (AUTO) 72.5 %; PLT - PLATELET COUNT 297 10^3/uL (130-450); RED BLOOD COUNT 5.53 10^6/uL (4.70-6.10); RED CELL DISTRIBUTION WIDTH 12.6 % (12.0-15.0); WHITE BLOOD COUNT 12.4 x10^3/uL (4.8-10.8)
[2019-10-08 23:48] LABS: INR 1.1 (0.8-1.2); PT - PROTHROMBIN TIME 12.7 secs (9.9-12.6)
[2019-10-08 23:55] LABS: PARTIAL THROMBOPLASTIN TIME 25.2 secs (24.9-33.3)
[2019-10-08 23:59] LABS: ALBUMIN 4.5 g/dL (3.2-5.5); BILIRUBIN,DIRECT 0.2 mg/dL (0.1-0.5); CALCIUM 8.9 mg/dL (8.5-10.3); CREATININE 1.1 mg/dL (0.6-1.2); MAGNESIUM 2.3 mg/dL (1.7-2.8); TOTAL PROTEIN 8.4 g/dL (6.7-8.2)
[2019-10-09] MEDS ORDERED: IOVERSOL 320 100 ML VIAL IVP ONE (00:20)
--- NOTE | 2019-10-09 00:49 | CT Report ---
Reason: abd pain Procedure Date: 10/09/2019 Accession Number: [id number] / [id number] Procedure: CT - Abdomen/Pelvis W CPT Code: Final Report FULL RESULT: EXAM: CT ABDOMEN AND PELVIS EXAM DATE: 10/09/2019 12:22 AM. CLINICAL HISTORY: Abd pain. COMPARISONS: ABDOMEN/PELVIS W/ 11/29/2018 8:45 PM. TECHNIQUE: Routine helical CT imaging was performed through the abdomen and pelvis. IV contrast: 100 mL of Optiray 320. Enteric contrast: No. Reconstructions: Coronal and sagittal. In accordance with CT protocol optimization, one or more of the following dose reduction techniques were utilized for this exam: automated exposure control, adjustment of mA and/or KV based on patient size, or use of iterative reconstructive technique. FINDINGS: Lung Bases: Dependent atelectasis. Liver: Normal. No masses. Gallbladder/Bile Ducts: Unremarkable. Spleen: Normal. Pancreas: Normal. Adrenal Glands: Normal. Kidneys: Normal. No masses or hydronephrosis. Peritoneal Cavity/Bowel: Proximal and mid small bowel dilatation, with an abrupt transition in the anterior midline at the level of the umbilicus, compatible with mechanical small bowel obstruction. No perforation. Previous postoperative changes in the sigmoid colon, stable. No adenopathy. Trace mesenteric fluid. The appendix is well visualized and normal. Pelvic Organs: Small amount of ascites in the pelvis. Otherwise, the pelvic organs appear unremarkable. No adenopathy. Vasculature: No aneurysms or other significant abnormality. Bones: Degenerative changes. Other: None. IMPRESSION: Small bowel obstruction, with transition point at the level of the umbilicus anteriorly. Small amount of ascites and mesenteric fluid. No perforation. RADIA
[2019-10-09 01:03] LABS: CLARITY,URINE CLEAR (CLEAR); LEUKOCYTE ESTERASE, URINE NEGATIVE (NEGATIVE); NITRITE,URINE NEGATIVE (NEGATIVE)
[2019-10-09 01:04] LABS: BILIRUBIN,URINE NEGATIVE (NEGATIVE); GLUCOSE, URINE (UA) NEGATIVE (NEGATIVE); KETONES,URINE (UA) NEGATIVE (NEGATIVE); OCCULT BLOOD,URINE NEGATIVE (NEGATIVE); PROTEIN,URINE NEGATIVE (NEGATIVE); UROBILINOGEN,URINE 0.2 (NORMAL) E.U./dL (NORMAL)
[2019-10-09] MEDS ORDERED: ONDANSETRON 4 MG/2 ML VIAL IVP PRN (01:12)
[2019-10-09] MEDS ORDERED: HYDROmorphone 0.5 MG/0.5 ML SYRINGE IVP PRN (01:12)
[2019-10-09] MEDS ORDERED: SODIUM CHLORIDE FLUSH 0.9% 10 ML SYRINGE IVP PRN (01:12)
[2019-10-09] MEDS ORDERED: LACTATED RINGERS 1,000 ML IV ONE (01:16)
--- NOTE | 2019-10-09 01:20 | HISTORY & PHYSICAL EXAMINATION ---
Chief Complaint - Chief Complaint Chief Complaint: Abdominal pain History of Present Illness - Admitted From Admitted From:: Home - History Obtained From Records Reviewed: Yes History obtained from: Patient, ER Physician, EMR - History of Present Illness HPI Comment/Other: This is a 54-year-old male with a past medical history significant for stage II left colon cancer status post left colectomy, history of stage II left upper lobe lung cancer status post lobectomy and chemotherapy, GERD who presents today complaining of abdominal pain for the past 2 days. He states his pain started Sunday and was located in the epigastric region. He has had associated nausea, vomiting, abdominal distention. He reports he is not passing gas and has a dec rease in the number of bowel movements although he states he did have one last night although it was very small. His last meal was yesterday. He reports no prior history of obstruction. His only abdominal surgery is the colectomy for his colon cancer. He reports no fevers, chills. He does report feeling thirsty. In the emergency department, he is found to be afebrile, tachycardic with a hear t of 143. Hypertensive systolic blood pressure of 142/87. He was not tachypneic and saturating well on room air. Labs are significant for white count of 12.4 and a potassium of 3.2. He underwent a CT of the abdomen pelvis which showed a small bowel obstruction transition point at the level of the umbilicus anteriorly. There is a small amount of ascites and mesenteric fluid. The emergency room physician spoke with general surgery recommended admission and they will consult. History - Past Medical History Cardiovascular: reports: None Respiratory: reports: Other Neuro: reports: None Endocrine/Autoimmune: reports: None GI: reports: GERD, Other (Colon cancer s/p left colectomy.) : reports: None HEENT: reports: None Psych: reports: None Musculoskeletal: reports: None Derm: reports: None MRSA Hx?: No - Past Surgical History General: reports: Bowel surgery, Colonoscopy Cardiovascular: reports: Lobectomy HEENT: reports: Other - Family & Social History Family History Comment/Other: He reports no family history to his knowledge. Living arrangement: At home Living Situation: With spouse/s.o. Social History Notes: He has been living here on [facility] since 2001. 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 Denies a history of smoking and alcohol use. - Substance History Use: Uses substance without health or social issues: NONE Meds/Allgy - Home Medications Home Medications: Ambulatory Orders Medication Instructions Recorded Confirmed Cholecalciferol [Vitamin D3] 5,000 unit ORAL DAILY 04/08/17 06/23/19 Omeprazole [PriLOSEC] 40 mg PO DAILY 09/20/17 06/23/19 Multivitamin [Multiple Vitamins] 1 each ORAL DAILY 04/12/18 06/23/19 Sucralfate [Carafate] 1 gm PO ACHS #120 tablet 06/01/18 06/23/19 raNITIdine [Zantac] 150 mg PO BID #60 tablet 06/01/18 06/23/19 - Allergies Allergies/Adverse Reactions: Allergies Allergy/AdvReac Type Severity Reaction Status Date / Time No Known Drug Allergies Allergy Verified 10/08/19 23:09 Review of Systems - Constitutional Constitutional: reports: Poor appetite. denies: Fatigue, Fever, Chills, Malaise - Cardiovascular Cariovascular: denies: Chest pain, Exertional dyspnea, Decr. exercise tolerance - Respiratory Respiratory: denies: SOB at rest, SOB with exertion - Gastrointestinal Gastrointestinal: reports: Abdominal pain, Abdominal distention, Constipation, Change in bowel habits, Nausea, Vomiting, Bloating, Poor appetite - Genitourinary Genitourinary: denies: Dysuria, Frequency, Urgency - Musculoskeletal Musculoskeletal: denies: Muscle pain, Muscle weakness - Integumentary Integumentary: denies: Rash - Neurological Neurological: denies: General weakness - All Other Systems All Other Systems: reports: Reviewed and negative Prior Level of Functionality: He is independent with his ADL's. Exam - Vital Signs Reviewed Vital Signs: Yes Vital Signs: Vital Signs x48h Temp Pulse Resp BP Pulse Ox 10/09/19 00:05 105 H 16 144/96 H 95 10/08/19 23:06 37.4 C 143 H 16 142/87 H 95 - Physical Exam General Appearance: positive: No acute distress, Alert Eyes Bilateral: positive: Normal inspection, Conjunctivae nml ENT: positive: ENT inspection nml Neck: positive: Nml inspection Respiratory: positive: No respiratory distress. negative: Wheezes, Rales, Rh onchi Cardiovascular: positive: No murmur, Tachycardia. negative: Bradycardia, Systolic murmur, Diastolic murmur Abdomen: positive: Tenderness (He has enderness in the epigastric area.), Abnml bowel sounds (Hypoactive bowel sounds.), Other (His abdomen is distended. Prior incisional scars noted.). negative: No distention Skin: positive: No rash, Warm, Dry Extremities: positive: Full ROM, No pedal edema Neurologic/Psychiatric: positive: Oriented x3, Motor nml. negative: Disoriented to person, Disoriented to place, Disoriented to time Conclusion/Plan - Problem List (1) SBO (small bowel obstruction) Conclusion/Plan: Presents with abdominal pain, nausea, vomiting and found to have bowel obstruction on CT with transition point at the umbilicus anteriorly. NG tube has been placed in the ER. Will make him NPO and control his pain with Dilaudid IV. Zofran as need for nausea. Hydration with LR. General Surgery consult. He may need a Gastrografin challenge. (2) Hypokalemia Conclusion/Plan: Potassium was low at 3.2 and this is been replaced intravenously. We will continue to monitor on a daily basis. (3) History of colon cancer, stage II Conclusion/Plan: This was diagnosed back in 2016 and he was treated with a left colectomy. Never received adjuvant chemotherapy. He will continue outpatient follow-up with Dr. Turner. (4) History of lung cancer Conclusion/Plan: He has history of stage II left upper lobe cancer status post lobectomy in July 2017. He did receive treatment with Cisplatin/Navelbine. He will continue outpatient follow-up with Dr. Turner. (5) GERD (gastroesophageal reflux disease) Conclusion/Plan: He is on PPI at home. Will continue him on IV Protonix. - Lab Results Lab results reviewed: Yes Fish Bones: 10/09/19 04:25 10/09/19 04:25 - Diagnostic Imaging Results Diagnostic Imaging Results: positive: Final report reviewed Core Measures - Anticipated LOS I expect patient to be DC'd or transferred within 96 hours.: Yes - Issues Hospital Issues and Management Plan: 54 year old male with history of colon CA and prior bowel obstruction presents with abdominal pain, nausea, vomiting and found to have obstruction. Will admit for NG tube placement and general surgery consult. - DVT/VTE - Prophylaxis VTE/DVT Device ordered at admit?: Yes VTE/DVT Prophylaxis med ordered at admit?: Yes
--- NOTE | 2019-10-09 02:30 | XRAY Report ---
Reason: NG tube placement Procedure Date: 10/09/2019 Accession Number: [id number] / [id number] Procedure: XR - Chest 1 View X-Ray CPT Code: 16091 Final Report FULL RESULT: EXAM: CHEST RADIOGRAPHY EXAM DATE: 10/09/2019 01:58 AM. CLINICAL HISTORY: NG tube placement. COMPARISON: CHEST 1 VIEW 03/30/2019 9:15 PM. TECHNIQUE: 1 view. FINDINGS: Lungs/Pleura: Minimal linear atelectasis at the left base. No effusion or pneumothorax. Mediastinum: Within exam limitations, the cardiomediastinal contour is normal. Other: Enteric tube terminating in the stomach. Gaseous small bowel dilatation in the upper abdomen. IMPRESSION: Enteric tube terminating in the stomach. RADIA
[2019-10-09] MEDS: POTASSIUM CHLOR 10 MEQ/100 ML 10 MEQ/100 ML BAG IV SCH ×4 (02:58→08:40)
[2019-10-09] MEDS: LACTATED RINGERS 1,000 ML IV SCH ×2 (04:07→15:13)
[2019-10-09 05:46] LABS: BASOPHILS % (AUTO) 0.3 %; EOSINOPHILS % (AUTO) 0.1 %; HGB - HEMOGLOBIN 15.2 g/dL (14.0-18.0); LYMPHOCYTES # (AUTO) 1.7 10^3/uL (1.5-3.5); LYMPHOCYTES % (AUTO) 16.2 %; MEAN CORPUSCULAR HEMOGLOBIN 29.6 pg (27.0-31.0); MEAN CORPUSCULAR VOLUME 89.7 fL (80.0-94.0); MEAN PLATELET VOLUME 9.4 fL (7.4-11.4); MONOCYTES # (AUTO) 1.5 10^3/uL (0.0-1.0); MONOCYTES % (AUTO) 13.7 %; NEUTROPHILS # (AUTO) 7.4 10^3/uL (1.5-6.6); NEUTROPHILS % (AUTO) 69.4 %; PLT - PLATELET COUNT 260 10^3/uL (130-450); RED BLOOD COUNT 5.13 10^6/uL (4.70-6.10); RED CELL DISTRIBUTION WIDTH 12.6 % (12.0-15.0); WHITE BLOOD COUNT 10.6 x10^3/uL (4.8-10.8)
[2019-10-09 05:59] LABS: CALCIUM 8.5 mg/dL (8.5-10.3); CREATININE 0.9 mg/dL (0.6-1.2); MAGNESIUM 2.1 mg/dL (1.7-2.8); PHOSPHORUS 2.9 mg/dL (2.5-4.6)
[2019-10-09] MEDS: PANTOPRAZOLE 40 MG VIAL IVP SCH (06:55)
[2019-10-09] MEDS: HEPARIN 5,000 UNIT/ML VIAL SUBQ SCH ×2 (08:37→22:19)
[2019-10-09] MEDS: SODIUM CHLORIDE FLUSH 0.9% 10 ML SYRINGE IVP SCH ×2 (08:41→16:51)
[2019-10-09] MEDS ORDERED: HYDROmorphone 1 MG/ML CARPUJECT IVP PRN (10:13)
--- NOTE | 2019-10-09 12:27 | CONSULTATION NOTE ---
Referring Provider Name of Referring Provider:: ED Consult Date: 10/09/19 Chief Complaint - Chief Complaint Chief Complaint: SBO History of Present Illness - History of Present Illness HPI Comment/Other: 54yo M with SBO. Was eating and moving bowels through yesterday but had increasing pain and distension. He had an NGT placed in ED after CT confirms SBO. He has had moderate volume output and still has some mild nausea and distension but has started having loose BMs just recently. Has never had an SBO. Had a laparoscopic left hemicolectomy for CRC in 2017. He is also undergoing treatment for lung cancer. He is afebrile and normotensive but was tachycardic on arrival. He is walking well around the room when seen. History - Past Medical History Cardiovascular: reports: None Respiratory: reports: Other Neuro: reports: None Endocrine/Autoimmune: reports: None GI: reports: GERD, Other (Colon cancer s/p left colectomy.) : reports: None HEENT: reports: None Psych: reports: None Musculoskeletal: reports: None Derm: reports: None MRSA Hx?: No - Past Surgical History General: reports: Bowel surgery, Colonoscopy Cardiovascular: reports: Lobectomy HEENT: reports: Other - Family & Social History Family History Comment/Other: He reports no family history to his knowledge. Living arrangement: At home Living Situation: With spouse/s.o. Social History Notes: He has been living here on [facility] since 2001. 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 Denies a history of smoking and alcohol use. - Substance History Use: Uses substance without health or social issues: NONE Meds/Allgy - Home Medications Home Medications: Ambulatory Orders Medication Instructions Recorded Confirmed Cholecalciferol [Vitamin D3] 5,000 unit ORAL DAILY 04/08/17 06/23/19 Omeprazole [PriLOSEC] 40 mg PO DAILY 09/20/17 06/23/19 Multivitamin [Multiple Vitamins] 1 each ORAL DAILY 04/12/18 06/23/19 Sucralfate [Carafate] 1 gm PO ACHS #120 tablet 06/01/18 06/23/19 raNITIdine [Zantac] 150 mg PO BID #60 tablet 06/01/18 06/23/19 - Allergies Allergies/Adverse Reactions: Allergies Allergy/AdvReac Type Severity Reaction Status Date / Time No Known Drug Allergies Allergy Verified 10/08/19 23:09 Review of Systems - Constitutional Constitutional: reports: Poor appetite - Gastrointestinal Gastrointestinal: reports: Abdominal pain, Change in bowel habits, Nausea - All Other Systems All Other Systems: reports: Reviewed and negative Exam - Vital Signs Reviewed Vital Signs: Yes Vital Signs: Vital Signs x48h Temp Pulse Resp BP Pulse Ox 10/09/19 12:12 36.9 C 108 H 18 136/86 H 96 10/09/19 07:45 36.4 C L 102 H 20 134/84 H 96 - Physical Exam Comments/Other: AAO, NAD, male of healthy weight EOMI, MMM, mask covering lower half of face NGT in place unlabored RA soft, mild distension, no significant ttp but some soreness along upper abdomen MAEW Conclusion and Plan - Lab Results Laboratory Results 10/09/19 04:25: Sodium 135, Potassium 3.6, Chloride 103, Carbon Dioxide 25, Anion Gap 7.0, BUN 17, Creatinine 0.9, Estimated GFR (MDRD) 87 L, Glucose 123 H, Calcium 8.5, Phosphorus 2.9, Magnesium 2.1 10/09/19 04:25: WBC 10.6, RBC 5.13, Hgb 15.2, Hct 46.0, MCV 89.7, MCH 29.6, MCHC 33.0, RDW 12.6, Plt Count 260, MPV 9.4, Neut # (Auto) 7.4 H, Lymph # (Auto) 1.7, [place] # (Auto) 1.5 H, Eos # (Auto) 0.0, Baso # (Auto) 0.0, Absolute Nucleated RBC 0.00, Nucleated RBC % 0.0 10/09/19 00:50: Urine Color YELLOW, Urine Clarity CLEAR, Urine pH 6.0, Ur Specific [place] <1.005, Urine Protein NEGATIVE, Urine Glucose (UA) NEGATIVE, Urine Ketones NEGATIVE, Urine Occult Blood NEGATIVE, Urine Nitrite NEGATIVE, Urine Bilirubin NEGATIVE, Urine Urobilinogen 0.2 (NORMAL), Ur Leukocyte Esterase NEGATIVE, Ur Microscopic Review NOT INDICATED, Urine Culture Comments NOT INDICATED 10/08/19 23:30: Lactic Acid 1.5 10/08/19 23:30: Troponin I High Sens 6.0 10/08/19 23:30: PT 12.7 H, INR 1.1, APTT 25.2 10/08/19 23:30: Sodium 135, Potassium 3.2 L, Chloride 98 L, Carbon Dioxide 23, Anion Gap 14.0 H, BUN 22 H, Creatinine 1.1, Estimated GFR (MDRD) 69 L, Glucose 146 H, Calcium 8.9, Magnesium 2.3, Total Bilirubin 1.0, Direct Bilirubin 0.2, AST 31, ALT 27, Alkaline Phosphatase 63, Total Creatine Kinase 248, Total Protein 8.4 H, Albumin 4.5, Globulin 3.9, Lipase 22 10/08/19 23:30: WBC 12.4 H, RBC 5.53, Hgb 16.2, Hct 47.2, MCV 85.4, MCH 29.3, MCHC 34.3, RDW 12.6, Plt Count 297, MPV 9.2, Neut # (Auto) 9.0 H, Lymph # (Auto) 1.7, [place] # (Auto) 1.4 H, Eos # (Auto) 0.3, Baso # (Auto) 0.0, Absolute Nucleated RBC 0.00, Nucleated RBC % 0.0 - Diagnostic Imaging Results Diagnostic Imaging Results: positive: Final report reviewed, Read contemporaneously - Diagnosis Diagnosis: SBO - Plan Plan: - cont' bowel rest with NGT for now --> MIVFs --> ok for ice chips, sips of water - is having some loose BMs but still nauseated and distended so keep NGT for now, will clamp when progressing - no concerning signs for bowel ischemia but note of low volume fluid on imaging; mild leukocytosis has resolved, no peritoneal signs, remains afebrile and normotensive with unremarkable labs - ambulate as able - precautions in place for COVID-19
[2019-10-09] MEDS ORDERED: LACTATED RINGERS 1,000 ML IV SCH (14:58)
--- NOTE | 2019-10-09 15:00 | PHARMACY PROGRESS NOTE ---
- Best Possible Medication History Admit Date and Time: 10/09/19 0112 Processed by: Pharmacy Medication History completed: Yes Patient Interview: Completed Secondary Source(s): Insurance records As the person ultimately responsible for medication therapy, providers are able to order a medication from an existing home medication list in [facility] via the "Reconcile Routine" prior to Confirmation of that medication by it support technician. Such practice is discouraged except when the physician, in their clinical judgment, deems that a medical need exists for a medication without regard to previous use.
[2019-10-10] MEDS: SODIUM CHLORIDE FLUSH 0.9% 10 ML SYRINGE IVP SCH ×2 (01:51→09:26)
[2019-10-10 05:45] LABS: BASOPHILS % (AUTO) 0.6 %; EOSINOPHILS # (AUTO) 0.1 10^3/uL (0.0-0.7); EOSINOPHILS % (AUTO) 0.9 %; HGB - HEMOGLOBIN 12.3 g/dL (14.0-18.0); LYMPHOCYTES # (AUTO) 2.2 10^3/uL (1.5-3.5); LYMPHOCYTES % (AUTO) 34.7 %; MEAN CORPUSCULAR HEMOGLOBIN 29.2 pg (27.0-31.0); MEAN CORPUSCULAR HGB CONC 32.8 g/dL (32.0-36.0); MEAN CORPUSCULAR VOLUME 89.1 fL (80.0-94.0); MEAN PLATELET VOLUME 9.5 fL (7.4-11.4); MONOCYTES # (AUTO) 0.8 10^3/uL (0.0-1.0); MONOCYTES % (AUTO) 12.3 %; NEUTROPHILS # (AUTO) 3.3 10^3/uL (1.5-6.6); NEUTROPHILS % (AUTO) 51.3 %; PLT - PLATELET COUNT 196 10^3/uL (130-450); RED BLOOD COUNT 4.21 10^6/uL (4.70-6.10); RED CELL DISTRIBUTION WIDTH 12.7 % (12.0-15.0); WHITE BLOOD COUNT 6.4 x10^3/uL (4.8-10.8)
[2019-10-10 06:01] LABS: CALCIUM 8.1 mg/dL (8.5-10.3); MAGNESIUM 2.2 mg/dL (1.7-2.8); PHOSPHORUS 2.5 mg/dL (2.5-4.6)
[2019-10-10] MEDS: PANTOPRAZOLE 40 MG VIAL IVP SCH (06:33)
[2019-10-10 07:41] VITALS: BP 111/75
[2019-10-10] MEDS ORDERED: POTASSIUM CHLORIDE 20 MEQ TABLET PO ONE (08:34)
--- NOTE | 2019-10-10 08:39 | Discharge Plan ---
Discharge Plan Problem Reviewed?: Yes Disposition: 01 Home, Self Care Condition: Stable Diet: Regular (with low fiber for now) Activity Restrictions: Activity as Tolerated Shower Restrictions: No Driving Restrictions: No Instruction Topics: Diet Low Residue Health Concerns: You presented to the hospital with abdominal pain that is been going on for 2 days that was located in the upper middle abdomen. You have a history of stage II left colon cancer that was surgically removed. That is important because previous abdominal surgery will increase the risk of subsequent bowel obstructions from adhesions. In the emergency room we found to have a high heart rate, normal blood pressure, a mildly elevated white cell count, and a CAT scan of the abdomen showed a small bowel obstruction that appeared to be being pinched at the level of the bellybutton. You did well with just having an NG tube to suck out your stomach acids, nausea medicines, pain medicines, and an IV in your arm to hydrate you. On the day of discharge you had watery yellow diarrhea. But no fever, chills, or abdominal pain. Plan of Treatment: 1. You were advanced in your diet from clear liquid food to a regular diet and had no nausea or vomiting. You have had 3 bowel movements by the time of discharge. 2. General surgery did see you. But you do not have to have any procedures done. 3. We submitted your stool for C. difficile testing because of the diarrhea. We discussed that it is toxin and can cause diarrhea. The results are pending at the time of discharge. If they are positive, I will call you and start you on a pill called Flagyl to treat this. 4. Please see your regular doctor in follow-up in the next 2 weeks so they can know how you are doing. 5. For the next couple of weeks, please eat a low fiber diet. That means avoiding a lot of raw fruits and vegetables and salads. Care Goals: To not get bowel obstruction back. Assessment: Patient understands treatment, plan, and will follow through appropriately with primary care provider. No Smoking: If you smoke, Please STOP! Call for help.
[2019-10-10] MEDS: HEPARIN 5,000 UNIT/ML VIAL SUBQ SCH (09:26)
--- NOTE | 2019-10-10 16:36 | DISCHARGE SUMMARY ---
"Discharge Summary Admit Date: 10/09/19 Discharge Date: 10/10/19 Discharging Provider: Katy Almeida MD Primary Care Provider: [facility] Code Status: Attempt Resuscitation Condition at Discharge: Stable Discharge Disposition: 01 Home, Self Care - DIAGNOSES Discharge Diagnoses with Status of Each Condition: 1. Small bowel obstruction, resolved 2. Hypokalemia 3. History of colon cancer, stage II 4. History of stage II left upper lobe lung cancer 5. Gastroesophageal reflux disease - HPI History of Present Illness: This is a 54-year-old male with a past medical history significant for stage II left colon cancer status post left colectomy, history of stage II left upper lobe lung cancer status post lobectomy and chemotherapy, GERD who presents today complaining of abdominal pain for the past 2 days. He states his pain started Sunday and was located in the epigastric region. He has had associated nausea, vomiting, abdominal distention. He reports he is not passing gas and has a decrease in the number of bowel movements although he states he did have one l ast night although it was very small. His last meal was yesterday. He reports no prior history of obstruction. His only abdominal surgery is the colectomy for his colon cancer. He reports no fevers, chills. He does report feeling thirsty.His CEA is rising. With the May 2019 visit, Dr. Clark was going to be seeing him for restaging in the near future. It is now September, there is no note in the electronic medical record. In the emergency department, he is found to be afebrile, tachycardic with a heart of 143. Hypertensive systolic blood pressure of 142/87. He was not tachypneic and saturating well on room air. Labs are significant for white count of 12.4 and a potassium of 3.2. He underwent a CT of the abdomen pelvis which showed a small bowel obstruction transition point at the level of the umbilicus anteriorly. There is a small amount of ascites and mesenteric fluid. The emergency room physician spoke with general surgery recommended admission and they will consult. Past Medical History Cardiovascular: reports: None Respiratory: reports: Other Neuro: reports: None Endocrine/Autoimmune: reports: None GI: reports: GERD, Other (Colon cancer s/p left colectomy.) : reports: None HEENT: reports: None Psych: reports: None Musculoskeletal: reports: None Derm: reports: None MRSA Hx?: No Past Surgical History General: reports: Bowel surgery, Colonoscopy Cardiovascular: reports: Lobectomy - CONSULTS | PROCEDURES Consultations: General surgery, Dr. Martinez Procedures: 1. Abdomen pelvis CT with proximal and mid small bowel dilation. Abrupt transition in the anterior midline at the level of the umbilicus, compatible with mechanical small bowel obstruction. No perforation. Previous postoperative changes in the sigmoid colon are stable. Small amount of ascites in the pelvis. 2. Chest x-ray with enteric tube terminating in the stomach after NG tube placement. Gaseous small bowel dilation. No acute cardiopulmonary process. - HOSPITAL COURSE Hospital Course: The patient was placed in observation with an NG tube to drainage. Within 12 to 16 hours he then started having flatus, a reduction in abdominal distention, and then had a bowel movement. He was started on clear liquids, advance to full li quids and then a regular diet by the day of discharge. He recovered much faster than we thought he was going to at 24 hours. At discharge temperature was 36.3, pulse 77, blood pressure 111/75, respirations 18 and 98% room air sat. He is 5 foot 8 inches tall and weighs 75.5 kg. Stocky male who is in no acute distress. Throughout his entire visit he wore a knitted hat for his head, and a facemask much like a dirt bike market research analyst would wear. He repairs jet engines for living. Neck is supple, lungs are clear to auscultation and percussion, no increased respiratory effort or d istress. PMI is normally placed with a regular rate and rhythm. The abdomen is soft, nontender, normal bowel sounds at this time. He is ambulating in his room without any difficulty. Every time I saw him he was actually sitting up in the sofa over the chair or walking in his room. Did not spend a lot of time in bed. He was seen by general surgery. No surgical intervention required at this time. Hypokalemia was supplemented with K riders. He is discharged in stable condition. Greater than 30 minutes was spent coordinating discharge and explaining to the patient why he may have had a bowel obstruction. He is to follow-up with his primary care provider in the next 2 weeks for follow-up. And also see Dr. Earnest Villa at the appropriate interval. - ALLERGIES Allergies/Adverse Reactions: Allergies Allergy/AdvReac Type Severity Reaction Status Date / Time No Known Drug Allergies Allergy Verified 10/08/19 23:09 - MEDICATIONS Home Medications: Ambulatory Orders Medication Instructions Recorded Confirmed Omeprazole [PriLOSEC] 20 mg PO DAILY 09/20/17 10/09/19 Multivitamin [Multiple Vitamins] 1 tab PO DAILY 04/12/18 10/09/19 Aspirin [Aspirin EC] 81 mg PO DAILY 10/09/19 10/09/19 Cholecalciferol (Vitamin D3) 3,000 unit PO DAILY 10/09/19 10/09/19 [Vitamin D3] Sucralfate [Carafate] 1 gm PO TID 10/09/19 10/09/19 - LABS Result Diagrams: 10/10/19 05:05 10/10/19 05:05"
== END 2019-10-10 10:55 | disposition home or self-care (01) | DRG 390 ==
LOC: ED 23:02 → MS2 10-09 01:12
PROVIDERS: ADMIT Internal Medicine; ATTEND Specialist
DX: K91.30 Postprocedural intestinal obstruction, unspecified as to partial versus complete (principal); E87.6 Hypokalemia; K21.9 Gastro-esophageal reflux disease without esophagitis; Z85.038 Personal history of other malignant neoplasm of large intestine; Z85.118 Personal history of other malignant neoplasm of bronchus and lung; Z90.49 Acquired absence of other specified parts of digestive tract; Z92.21 Personal history of antineoplastic chemotherapy
CPT/HCPCS: 36415; 74177; 80048; 80076; 81003; 82550; 83605; 83690; 83735; 84100; 84484; 85025; 85610; 85730; 87493; 93005; 96361; 96374; 99285; 99291; A9270; J7120; Q9967; 71045; 81001; 87086

== ENCOUNTER 2020-03-26 10:03 | Outpatient (CLI) | payer OTHER ==
[2020-03-26] MEDS ORDERED: IOVERSOL 320 50 ML VIAL ONE (10:20)
[2020-03-26] MEDS ORDERED: IOVERSOL 320 100 ML VIAL IVP ONE ×2 (10:20→17:18)
--- NOTE | 2020-03-26 12:10 | CT Report ---
PROCEDURE: Abdomen/Pelvis W INDICATIONS: Lung/colon cancer CONTRAST: 100 cc IV contrast. 50 cc dilute oral contrast. TECHNIQUE: After the administration of oral and intravenous contrast, 5 mm thick sections acquired from the diap hragms to the symphysis. 5 mm thick coronal and sagittal reformats were acquired. For radiation dos e reduction, the following was used: automated exposure control, adjustment of mA and/or kV accordin g to patient size. COMPARISON: Same day CT chest. CT abdomen and pelvis 10/09/2019, (05/24/2018.. FINDINGS: Image quality: Excellent. ABDOMEN: Lung bases: Mild streaky opacity at the left lung base. No pleural effusion. Please see separately di ctated CT chest. Heart size is normal. Solid organs: Liver and spleen are normal in size. Multiple well-circumscribed hepatic hypodensities which have the appearance of benign cysts are unchanged compared to 05/24/2018. No new lesion seen. Gallbladder is unremarkable. Biliary system is non dilated. Pancreas enhances normally. No adrenal nodules. Kidneys demonstrate normal size and enhancement, without hydronephrosis. Peritoneum and bowel: Sigmoid colon anastomosis is unchanged. No recurrent mass seen. Normal appendi x. No small bowel obstruction. No free fluid or air. Nodes and vessels: No retroperitoneal or mesenteric adenopathy by size criteria. Aorta and inferior vena cava are normal in size. Miscellaneous: No ventral hernias. Ventral midline scar. PELVIS: Genitourinary: Bladder is unremarkable. Prostatomegaly. Miscellaneous: No inguinal hernias or adenopathy. Bones: No suspicious bony lesions. No vertebral body compression fractures. IMPRESSION: No metastatic disease identified. No adenopathy. No free fluid. Reviewed by: Vicente Hanley MD on 03/26/2020 11:08 AM MICHELET Approved by: iVcente Hanley MD on 03/26/2020 11:08 AM MICHELET Station ID: [id number]
--- NOTE | 2020-03-26 16:33 | CT Report ---
PROCEDURE: CHEST W INDICATIONS: LUNG/COLON CANCER CONTRAST: IV CONTRAST: Optiray 320 ml: 100 PO CONTRAST: Optiray 320 ml50 TECHNIQUE: After the administration of intravenous contrast, 5 mm thick sections acquired from the pulmonary api gutierrez to the posterior costophrenic angles. 7 mm thick coronal MIP reformats were acquired. For radia tion dose reduction, the following was used: automated exposure control, adjustment of mA and/or kV according to patient size. COMPARISON: CT abdomen pelvis 10/09/2019, 06/04/2017. FINDINGS: Image quality: Excellent. Lungs and pleura: No acute air space opacities. No pleural effusions or pneumothorax. Central and peripheral airways are patent and normal in caliber. Mediastinum: Heart size is normal. No pericardial effusion. No mediastinal or hilar adenopathy by size criteria. Thoracic aorta and central pulmonary arteries are normal in size. Esophagus is cesar l in caliber. No hiatal hernia. Bones and chest wall: No suspicious bony lesions. No vertebral body compression fractures. No axil wilmar or supraclavicular adenopathy by size criteria. Thyroid gland is unremarkable. Abdomen: Multiple hepatic cysts are present, the largest measuring 21 mm, unchanged. Visualized uppe r abdominal solid organs appear normal. Upper abdominal bowel loops are normal in caliber. IMPRESSION: 1. No metastatic disease. Reviewed by: Jacque Lundberg MD on 03/26/2020 4:32 PM PDT Approved by: Jacque Lundberg MD on 03/26/2020 4:32 PM PDT Station ID: [id number]
--- NOTE | 2020-03-26 16:37 | CT Report ---
PROCEDURE: SOFT TISSUE NECK W INDICATIONS: LUNG/COLON CANCER CONTRAST: IV CONTRAST: Optiray 320 ml: 100 PO CONTRAST: Optiray 320 ml50 TECHNIQUE: After the administration of intravenous contrast, 3.0 mm axial sections acquired from the sella to th e aortic arch. Additional oblique axial 3.0 mm sections acquired through the pharynx. 3 mm thick co ana reformats were generated. For radiation dose reduction, the following was used: automated exp osure control, adjustment of mA and/or kV according to patient size. COMPARISON: Ultrasound thyroid 10/25/2018, CT chest 11/29/2018 FINDINGS: Image quality: Excellent. Lymph nodes: No enlarged lymph nodes seen throughout the neck. Vessels: Visualized vasculature appears patent. Neck spaces: The oropharynx, nasopharynx, and pharynx demonstrate no mucosal lesions. The vocal cor ds, false vocal cords, pyriform sinuses, epiglottis, vallecula, and tongue base all appear normal. E xtramucosal spaces appear unremarkable. Glands: The parotid and submandibular glands appear normal. The thyroid demonstrates subcentimeter low-attenuation foci particularly within the right lobe appearing unchanged. Miscellaneous: Visualized brain and orbits appear normal. Lung apices appear clear. Superficial so ft tissues appear normal. Bones: There are several subcentimeter lucent foci within the C5 vertebral body the largest measuring 4 mm. Similar although less prominent appearance is noted at C4. Visualized sinuses and mastoids leonela ear unremarkable. IMPRESSION: 1. No adenopathy. 2. Nonspecific lucencies at the C4 and C5 vertebral bodies. There overall nonspecific and no priors a re available for comparison. These could be related to degenerative change. However, given history of colon cancer, short interval imaging follow-up or bone scan is recommended for further evaluation. Reviewed by: Jacque Lundberg MD on 03/26/2020 4:35 PM PDT Approved by: Jacque Lundberg MD on 03/26/2020 4:35 PM PDT Station ID: [id number]
[2020-03-26] MEDS ORDERED: IOVERSOL 320 50 ML VIAL PO ONE (17:18)
== END 2020-03-26 10:04 | disposition home or self-care (01) ==
LOC: DI 10:03
PROVIDERS: ATTEND Internal Medicine Hematology & Oncology
DX: C34.32 Malignant neoplasm of lower lobe, left bronchus or lung (principal); C34.90 Malignant neoplasm of unspecified part of unspecified bronchus or lung; C18.6 Malignant neoplasm of descending colon
CPT/HCPCS: 70491; 71260; 74177

== ENCOUNTER 2020-04-15 08:44 | Outpatient (CLI) | payer OTHER ==
--- NOTE | 2020-04-15 16:56 | Nuclear Medicine Report ---
PROCEDURE: Bone Whole Body INDICATIONS: LUNG AND COLON CA RADIOPHARMACEUTICAL: 30.5 mCi Tc-99m MDP IV. TECHNIQUE: Delayed whole-body scintigrams were obtained approximately 3-4 hours after intravenous injection of r adiotracer. Anterior and posterior views were acquired from vertex to feet. Additional left and rig ht oblique views of the skull and cervical spine were obtained. COMPARISON: CT chest with contrast, CT abdomen pelvis with contrast and CT soft tissue neck with con trast, 03/26/2020. FINDINGS: There is a focal uptake in the left side of manubrium, most likely degenerative in nature. On the comparison chest CT, no definitive lytic or blastic lesion identified. 1. No foci of abnormal uptake in skull, scapulae, clavicles, bony pelvis, and visualized shafts of t he long bones. Low level increased uptake in lower cervical spine, thoracic spine and lumbar spine is most likely degenerative in nature. Foci of mildly increased periarticular activity in shoulders, s ternoclavicular joints, elbows, wrists, hands, hips, and knees are noted, consistent with degenerativ e/arthritic changes. IMPRESSION: 1. A focal uptake in the left side of manubrium. On the comparison chest CT, no definitive lytic or b lastic lesion identified. The finding is most likely degenerative in nature but early small metastat ic focus cannot be completely excluded. Recommend attention to the area on follow-up imaging. 2. Elsewhere, no scintigraphic findings to suggest osseous metastasis. Reviewed by: Mariya Roth MD on 04/15/2020 4:54 PM PDT Approved by: Mariya Roth MD on 04/15/2020 4:54 PM PDT Station ID: [id number]
== END 2020-04-15 08:45 | disposition home or self-care (01) ==
LOC: DI 08:44
PROVIDERS: ATTEND Internal Medicine Hematology & Oncology
DX: C18.6 Malignant neoplasm of descending colon (principal); C34.32 Malignant neoplasm of lower lobe, left bronchus or lung; R97.0 Elevated carcinoembryonic antigen [CEA]
CPT/HCPCS: 78306

== ENCOUNTER 2020-05-16 08:37 | Emergency (ER) | payer OTHER ==
[2020-05-16 09:22] LABS: BASOPHILS % (AUTO) 0.3 %; EOSINOPHILS % (AUTO) 0.1 %; HGB - HEMOGLOBIN 16.5 g/dL (14.0-18.0); LYMPHOCYTES # (AUTO) 1.2 10^3/uL (1.5-3.5); LYMPHOCYTES % (AUTO) 11.2 %; MEAN CORPUSCULAR HEMOGLOBIN 29.4 pg (27.0-31.0); MEAN CORPUSCULAR HGB CONC 33.5 g/dL (32.0-36.0); MEAN CORPUSCULAR VOLUME 87.5 fL (80.0-94.0); MEAN PLATELET VOLUME 9.1 fL (7.4-11.4); MONOCYTES # (AUTO) 0.8 10^3/uL (0.0-1.0); MONOCYTES % (AUTO) 7.6 %; NEUTROPHILS # (AUTO) 8.5 10^3/uL (1.5-6.6); NEUTROPHILS % (AUTO) 80.3 %; PLT - PLATELET COUNT 278 10^3/uL (130-450); RED BLOOD COUNT 5.62 10^6/uL (4.70-6.10); RED CELL DISTRIBUTION WIDTH 12.6 % (12.0-15.0); WHITE BLOOD COUNT 10.6 x10^3/uL (4.8-10.8)
[2020-05-16 09:32] LABS: ALBUMIN/GLOBULIN RATIO 1.3 (1.0-2.2); BILIRUBIN,TOTAL 1.5 mg/dL (0.2-1.0); CALCIUM 9.9 mg/dL (8.5-10.3); CREATININE 1.1 mg/dL (0.6-1.2); TOTAL PROTEIN 8.9 g/dL (6.7-8.2)
[2020-05-16] MEDS ORDERED: ONDANSETRON 4 MG/2 ML VIAL IVP STA (09:45)
[2020-05-16] MEDS ORDERED: SODIUM CHLORIDE 0.9% 1,000 ML IV STA (09:45)
--- NOTE | 2020-05-16 09:56 | ED Physician Documentation ---
History of Present Illness - Stated complaint Stated Complaint: ABD PX - Chief complaint Chief Complaint: Abd Pain - History obtained from History obtained from: Patient - Additonal information Additional information: Patient comes emergency department complaining of nausea and vomiting, as well as intermittent abdominal pain, for the last couple of days. He states that nobody else has been sick at home or at work that he knows of. He denies any fevers or chills. No urinary symptoms. He has history of colon cancer 3 years ago, but had a CT scan and bone scan last month which were clear. The patient states his pain is better now than it was before and that actually, he feels fairly good. He states he has a history of stomach issues previously and was thought to potentially have gastritis or ulcers at that time. He has some sucralfate left over from that incident and tried taking some yesterday to see if it helped the symptoms. However, he states he did not feel any better afterward. He has been trying to drink fluids, but an hour later, vomits. He has not eaten anything in the last couple of days. No other complaints at this time. Review of Systems Ten Systems: 10 systems reviewed and negative Constitutional: reports: Reviewed and negative. denies: Fever Eyes: reports: Reviewed and negative Ears: reports: Reviewed and negative Nose: reports: Reviewed and negative Throat: reports: Reviewed and negative Cardiac: reports: Reviewed and negative Respiratory: reports: Reviewed and negative GI: reports: Abdominal Pain, Nausea, Vomiting. denies: Constipation, Diarrhea : reports: Reviewed and negative. denies: Dysuria Skin: reports: Reviewed and negative Musculoskeletal: reports: Reviewed and negative Neurologic: reports: Reviewed and negative Psychiatric: reports: Reviewed and negative Endocrine: reports: Reviewed and negative Immunocompromised: reports: Reviewed and negative PD PAST MEDICAL HISTORY - Past Medical History Cardiovascular: None Respiratory: Other Neuro: None Endocrine/Autoimmune: None GI: GERD, Other (Colon cancer s/p left colectomy.) : None HEENT: None Psych: None Musculoskeletal: None Derm: None - Past Surgical History Past Surgical History: Yes General: Bowel surgery, Colonoscopy Cardiovascular: Lobectomy HEENT: Other - Present Medications Home Medications: Ambulatory Orders Medication Instructions Recorded Confirmed Omeprazole [PriLOSEC] 20 mg PO DAILY 09/20/17 05/16/20 Multivitamin [Multiple Vitamins] 1 tab PO DAILY 04/12/18 05/16/20 Aspirin [Aspirin EC] 81 mg PO DAILY 10/09/19 05/16/20 Cholecalciferol (Vitamin D3) 2,000 unit PO DAILY 10/09/19 05/16/20 [Vitamin D3] Sucralfate [Carafate] 1 gm PO TID 10/09/19 05/16/20 polyethylene glycoL 3350 [Miralax] 17 gm PO DAILY 12/08/19 05/16/20 Ondansetron Odt [Zofran] 4 mg TL Q6H PRN #10 tablet 05/16/20 - Allergies Allergies/Adverse Reactions: Allergies Allergy/AdvReac Type Severity Reaction Status Date / Time No Known Drug Allergies Allergy Verified 05/16/20 08:47 - Social History Does the pt smoke?: No Smoking Status: Never smoker Does the pt drink ETOH?: No Does the pt have substance abuse?: No PD ED PE NORMAL - Vitals Vital signs reviewed: Yes - General General: Alert and oriented X 3, No acute distress - HEENT HEENT: Atraumatic, PERRL, EOMI, Moist mucous membranes - Neck Neck: Supple, no meningeal sign - Cardiac Cardiac: RRR, No murmur, Strong equal pulses - Respiratory Respiratory: No respiratory distress, Clear bilaterally - Abdomen Abdomen: Soft, Non distended, Other (Mild tenderness noted in the epigastric region and periumbilical region) - Derm Derm: Normal color, Warm and dry, No rash - Extremities Extremities: No deformity, No edema, No calf tenderness / cord - Neuro Neuro: Alert and oriented X 3, manager talent acquisition 2-12 intact, No motor deficit, No sensory deficit, Normal speech - Psych Psych: Normal mood, Normal affect Results - Vitals Vitals: Vital Signs - 24 hr 05/16/20 05/16/20 05/16/20 08:44 09:49 10:43 Temperature 37.6 C H 37.1 C Heart Rate 130 H 108 H 88 Respiratory 16 18 22 Rate Blood Pressure 138/92 H 143/103 H 133/93 H O2 Saturation 97 99 98 05/16/20 12:01 Temperature 37.5 C Heart Rate 89 Respiratory 20 Rate Blood Pressure 138/97 H O2 Saturation 100 Oxygen O2 Source Room air - Labs Labs: Laboratory Tests 05/16/20 05/16/20 05/16/20 08:50 09:18 09:18 WBC 10.6 RBC 5.62 Hgb 16.5 Hct 49.2 MCV 87.5 MCH 29.4 MCHC 33.5 RDW 12.6 Plt Count 278 MPV 9.1 Neut # (Auto) 8.5 H Lymph # (Auto) 1.2 L [place] # (Auto) 0.8 Eos # (Auto) 0.0 Baso # (Auto) 0.0 Absolute Nucleated RBC 0.00 Nucleated RBC % 0.0 Sodium 137 Potassium 3.8 Chloride 100 L Carbon Dioxide 25 Anion Gap 12.0 BUN 18 Creatinine 1.1 Estimated GFR (MDRD) 69 L Glucose 159 H Calcium 9.9 Total Bilirubin 1.5 H AST 21 ALT 21 Alkaline Phosphatase 62 Total Protein 8.9 H Albumin 5.0 Globulin 3.9 Albumin/Globulin Ratio 1.3 Lipase 22 22 Urine Color Urine Clarity Urine pH Ur Specific [place] Urine Protein Urine Glucose (UA) Urine Ketones Urine Occult Blood Urine Nitrite Urine Bilirubin Urine Urobilinogen Ur Leukocyte Esterase Urine RBC Urine WBC Ur Squamous Epith Cells Urine Bacteria Urine Mucus Ur Microscopic Review Urine Culture Comments 05/16/20 11:34 WBC RBC Hgb Hct MCV MCH MCHC RDW Plt Count MPV Neut # (Auto) Lymph # (Auto) [place] # (Auto) Eos # (Auto) Baso # (Auto) Absolute Nucleated RBC Nucleated RBC % Sodium Potassium Chloride Carbon Dioxide Anion Gap BUN Creatinine Estimated GFR (MDRD) Glucose Calcium Total Bilirubin AST ALT Alkaline Phosphatase Total Protein Albumin Globulin Albumin/Globulin Ratio Lipase Urine Color YELLOW Urine Clarity CLEAR Urine pH 6.0 Ur Specific [place] 1.020 Urine Protein 100 H Urine Glucose (UA) NEGATIVE Urine Ketones NEGATIVE Urine Occult Blood TRACE-INTA Urine Nitrite NEGATIVE Urine Bilirubin NEGATIVE Urine Urobilinogen 0.2 (NORMAL) Ur Leukocyte Esterase NEGATIVE Urine RBC None Seen Urine WBC 0-3 Ur Squamous Epith Cells NONE SEEN Urine Bacteria None Seen Urine Mucus Few Strands Ur Microscopic Review INDICATED Urine Culture Comments NOT INDICATED PD MEDICAL DECISION MAKING - ED course Complexity details: reviewed results, re-evaluated patient, considered diff erential, d/w patient ED course: The patient was treated symptomatically with IV fluids and Zofran, and worked up with labs, which were unremarkable. The pt's exam was not concerning, and he was feeling better on re-eval. I did not find indication for emergent imaging at this time. We have discussed home management of the sx, as well as the usual indications for return. Departure - Departure Disposition: 01 Home, Self Care Clinical Impression: Viral gastroenteritis Condition: Stable Instructions: ED Diet Clear Liquid, ED Gastroenteritis Viral Prescriptions: Ondansetron Odt [Zofran] 4 mg TL Q6H PRN #10 tablet PRN Reason: Nausea / Vomiting Comments: Your labs look good. There is no evidence of an emergent condition at this time. Most likely, your symptoms are caused by one of the many viruses that irritate the gastrointestinal system. These generally last for a few days and then resolve on their own. Please take the nausea medicine that we have prescribed, as needed, and take only small sips of clear liquids at a time until your stomach is feeling better. Then you may advance your diet as tolerated, gradually. Discharge Date/Time: 05/16/20 12:04
[2020-05-16 11:44] LABS: BILIRUBIN,URINE NEGATIVE (NEGATIVE); GLUCOSE, URINE (UA) NEGATIVE (NEGATIVE); KETONES,URINE (UA) NEGATIVE (NEGATIVE); LEUKOCYTE ESTERASE, URINE NEGATIVE (NEGATIVE); NITRITE,URINE NEGATIVE (NEGATIVE); OCCULT BLOOD,URINE TRACE-INTA (NEGATIVE); PROTEIN,URINE 100 mg/dL (NEGATIVE); UROBILINOGEN,URINE 0.2 (NORMAL) E.U./dL (NORMAL)
[2020-05-16 11:47] LABS: CLARITY,URINE CLEAR (CLEAR)
[2020-05-16 11:50] LABS: BACTERIA,URINE None Seen /HPF (None Seen); MUCUS,URINE Few Strands; RBC,URINE None Seen /HPF (0-5); SQUAMOUS EPITHELIAL CELL,UR NONE SEEN (<= Few)
[2020-05-16 12:02] VITALS: BP 138/97
== END 2020-05-16 12:04 | disposition home or self-care (01) ==
LOC: ED 08:37
DX: A08.4 Viral intestinal infection, unspecified (principal); Z85.038 Personal history of other malignant neoplasm of large intestine; Z90.49 Acquired absence of other specified parts of digestive tract
CPT/HCPCS: 36415; 80053; 81001; 81003; 83690; 85025; 87086; 96361; 96374; 99284

== ENCOUNTER 2020-10-11 17:48 | Outpatient (CLI) | payer OTHER ==
[2020-10-11] MEDS ORDERED: IOVERSOL 320 100 ML VIAL IVP ONE ×2 (18:19→19:52)
[2020-10-11] MEDS ORDERED: IOPAMIDOL-300 50 ML VIAL ONE (18:24)
[2020-10-11] MEDS ORDERED: IOPAMIDOL-300 50 ML VIAL PO ONE (19:54)
--- NOTE | 2020-10-12 08:59 | CT Report ---
PROCEDURE: CHEST W INDICATIONS: HX OF LUNG CA, HX OF COLON CA CONTRAST: IV CONTRAST: Optiray 320 ml: 100 PO CONTRAST: Isovue 300 ml50 TECHNIQUE: After the administration of intravenous contrast, 5 mm thick sections acquired from the pulmonary api gutierrez to the posterior costophrenic angles. 7 mm thick coronal MIP reformats were acquired. For radia tion dose reduction, the following was used: automated exposure control, adjustment of mA and/or kV according to patient size. COMPARISON: 03/26/2020. FINDINGS: Image quality: Excellent. Lungs and pleura: No acute air space opacities. No pleural effusions or pneumothorax. Central and peripheral airways are patent and normal in caliber. Mediastinum: Heart size is normal. No pericardial effusion. No mediastinal or hilar adenopathy by size criteria. Thoracic aorta and central pulmonary arteries are normal in size. Esophagus is cesar l in caliber. No hiatal hernia. Bones and chest wall: There is a very subtle 5 mm subtle hyperdensity in the T2 vertebral body which was not present on the previous study. Reference image 55/3 (axial images) and image 43/6 (sagittal r eformats). This is suspicious for a very subtle developing mildly sclerotic bone metastasis. No other bony lesions are identified. No vertebral body compression fractures. No axillary or supraclavicula r adenopathy by size criteria. Thyroid gland is unremarkable as visualized. Abdomen: Visualized upper abdominal solid organs appear normal. Upper abdominal bowel loops are nor mal in caliber. IMPRESSION: 1. Question very subtle developing sclerotic bony metastasis involving T2 vertebral body. Consider MR I for confirmation. 2. No other evidence of metastatic disease in the chest. 3. Please refer to a separate report for today's CT findings in the abdomen and pelvis. Reviewed by: Arslan Newman MD on 10/12/2020 8:58 AM PDT Approved by: Arslan Newman MD on 10/12/2020 8:58 AM PDT Station ID: [id number]
--- NOTE | 2020-10-12 09:10 | CT Report ---
PROCEDURE: SOFT TISSUE NECK W INDICATIONS: HX OF LUNG CA, HX OF COLON CA CONTRAST: IV CONTRAST: Optiray 320 ml: 100 PO CONTRAST: Isovue 300 ml50 TECHNIQUE: After the administration of intravenous contrast, 3.0 mm axial sections acquired from the sella to th e aortic arch. Additional oblique axial 3.0 mm sections acquired through the pharynx. 3 mm thick co ana reformats were generated. For radiation dose reduction, the following was used: automated exp osure control, adjustment of mA and/or kV according to patient size. COMPARISON: 03/26/2020. 11/29/2018. FINDINGS: Image quality: Excellent. Lymph nodes: No enlarged lymph nodes seen throughout the neck. Vessels: Visualized vasculature appears patent. Neck spaces: The oropharynx, nasopharynx, and pharynx demonstrate no mucosal lesions. The vocal cor ds, false vocal cords, pyriform sinuses, epiglottis, vallecula, and tongue base all appear normal. E xtramucosal spaces appear unremarkable. Glands: The parotid and submandibular glands appear normal. The thyroid is normal in size. Miscellaneous: Visualized brain and orbits appear normal. Lung apices appear clear. Superficial so ft tissues appear normal. Spondylosis and diffuse facet arthropathy. Straightening of the normal cervical lordosis. At C4 and C 5 vertebral bodies, subcentimeter nonspecific lucencies are grossly unchanged. IMPRESSION: No cervical lymphadenopathy identified. Unchanged appearance of subcentimeter nonspecific lucencies involving the C4 and C5 vertebral bodies dating back to 11/29/2018. Reviewed by: Selvin Casiano MD on 10/12/2020 9:09 AM PDT Approved by: Selvin Casiano MD on 10/12/2020 9:09 AM PDT Station ID: [id number]
--- NOTE | 2020-10-12 10:13 | CT Report ---
PROCEDURE: Abdomen/Pelvis W INDICATIONS: HX OF LUNG CA, HX OF COLON CA CONTRAST: IV CONTRAST: Optiray 320 ml: 100 PO CONTRAST: Isovue 300 ml50 TECHNIQUE: After the administration of contrast, 5 mm thick sections acquired from the diaphragms to the symphy sis. 5 mm thick coronal and sagittal reformats were acquired. For radiation dose reduction, the fol lowing was used: automated exposure control, adjustment of mA and/or kV according to patient size. COMPARISON: CT abdomen and pelvis dated 03/26/2020, Whole Body Bone Scan dated 04/15/2020. FINDINGS: Image quality: Excellent. ABDOMEN: Lung bases: Lung bases are clear. Heart size is normal. Solid organs: Liver and spleen are normal in size and enhancement. Numerous liver cysts are unchange d in size or appearance. No suspicious solid liver masses. Gallbladder is unremarkable. Biliary sys tem is non dilated. Pancreas enhances normally. No adrenal nodules. Kidneys demonstrate normal siz e and enhancement, without hydronephrosis. Peritoneum and bowel: Bowel loops demonstrate normal wall thickness and caliber. No free fluid or a ir. Remote partial distal colectomy. Nodes and vessels: No retroperitoneal or mesenteric adenopathy by size criteria. Aorta and inferior vena cava are normal in size. Miscellaneous: No ventral hernias. PELVIS: Genitourinary: Bladder wall thickness is normal. Miscellaneous: No inguinal hernias or adenopathy. Bones: There is a linear lesion involving the L2 vertebral body which in retrospect was very subtly p resent previously, and has increased in size, now being much more conspicuous. It has sclerotic rim w hich typically suggest benignity. However, it is growing. It is in the right anterior aspect of the v ertebra. On previous image 37/3 it measured 0.5 x 1.1 cm. Bone scan was negative in this location on the previous study. On current image 42/3 it measures 0.9 x 1 6 cm. No other bony lesions identified. No vertebral body compression fractures. IMPRESSION: 1. There is a growing lucent lesion of the L2 vertebral body with a relative sclerotic rim. Although it has typical imaging characteristics suggesting a benign lesion, it has increased in size since the prior study, and is presumed to represent a lytic metastatic lesion. 2. Of note, on today's CT of the chest, a very subtle, minimally sclerotic T2 vertebral body lesion h as developed as well. 3. No other evidence of metastatic disease in the abdomen and pelvis. Comment: The location of the L2 vertebral body lesion is quite anterior, in relatively close proximit y to the aorta and inferior vena cava. This is a challenging lesion to biopsy for this reason. The pa tient does have a given history of 2 different malignancies. Further evaluation utilizing lumbar spin e MRI with and without contrast is suggested to further evaluate this lesion prior to consideration f or possible biopsy. Reviewed by: Arslan Newman MD on 10/12/2020 10:12 AM PDT Approved by: Arslan Newman MD on 10/12/2020 10:12 AM PDT Station ID: [id number]
== END 2020-10-11 17:49 | disposition home or self-care (01) ==
LOC: DI 17:48
PROVIDERS: ATTEND Internal Medicine Hematology & Oncology
DX: Z85.110 Personal history of malignant carcinoid tumor of bronchus and lung (principal); M47.812 Spondylosis without myelopathy or radiculopathy, cervical region
CPT/HCPCS: 36415; 70491; 71260; 74177; 82565; Q9967

== ENCOUNTER 2020-12-20 12:57 | Emergency (ER) | payer OTHER ==
--- OUTSIDE RECORDS SUMMARY | 2020-12-20 13:01 | EXTERNAL MEDICAL SUMMARY RPT | Continuity of Care Document ---
:1965 Demographics Phone Unavailable Preferred Language French Marital Status Unknown Voodoo Affiliation Unknown Race Unknown Ethnic Group Unknown Author Organization [place] Address [address] [phone] Phone Allergies Encounters Medications Problems date description facility [id number] Malignant neoplasm of [facility] Results
[2020-12-20 13:04] VITALS: BP 138/79
--- NOTE | 2020-12-20 13:19 | ED Physician Documentation ---
History of Present Illness - Stated complaint Stated Complaint: HEAD NUMBNESS - Chief complaint Chief Complaint: General - History obtained from History obtained from: Patient - Additonal information Additional information: Patient comes emergency department chief complaint of numbness on his head for a few minutes this morning that is now resolved. Patient states he is mainly concerned because he started chemotherapy for a spinal lesion, thought to be related to the lung cancer he was treated for a couple of years ago. He just started the chemotherapy about 3 days ago and was afraid it may have caused him to have a stroke. However, he never did have any other symptoms accompanying this. No focal numbness or weakness anywhere else. No visual changes. No facial droop. Patient states that the only symptom was the numbness and is feeling completely better now. He estimates it lasted 3 to 4 minutes. No other complaints at this time. Review of Systems Ten Systems: 10 systems reviewed and negative Constitutional: reports: Reviewed and negative Eyes: reports: Reviewed and negative Ears: reports: Reviewed and negative Nose: reports: Reviewed and negative Throat: reports: Reviewed and negative Cardiac: reports: Reviewed and negative Respiratory: reports: Reviewed and negative GI: reports: Reviewed and negative : reports: Reviewed and negative Skin: reports: Reviewed and negative Musculoskeletal: reports: Reviewed and negative Neurologic: reports: Numbness Psychiatric: reports: Reviewed and negative Endocrine: reports: Reviewed and negative Immunocompromised: reports: Reviewed and negative PD PAST MEDICAL HISTORY - Past Medical History Past Medical History: Yes Cardiovascular: None Respiratory: Other Neuro: None Endocrine/Autoimmune: None GI: GERD, Other : None HEENT: None Psych: None Musculoskeletal: None Derm: None - Past Surgical History Past Surgical History: Yes General: Bowel surgery, Colonoscopy Cardiovascular: Lobectomy HEENT: Other - Present Medications Home Medications: Ambulatory Orders Medication Instructions Recorded Confirmed Omeprazole [PriLOSEC] 20 mg PO DAILY 09/20/17 12/06/20 Multivitamin [Multiple Vitamins] 1 tab PO DAILY 04/12/18 12/06/20 Aspirin [Aspirin EC] 81 mg PO DAILY 10/09/19 12/06/20 Cholecalciferol (Vitamin D3) 2,000 unit PO DAILY 10/09/19 12/06/20 [Vitamin D3] Sucralfate [Carafate] 1 gm PO TID 10/09/19 12/06/20 polyethylene glycoL 3350 [Miralax] 17 gm PO DAILY 12/08/19 12/06/20 Ondansetron Odt [Zofran] 4 mg TL Q6H PRN #10 tablet 05/16/20 12/06/20 Folic Acid 1 mg PO DAILY 12/14/20 12/14/20 dexAMETHasone [Decadron] 4 mg PO BID 12/14/20 12/14/20 - Allergies Allergies/Adverse Reactions: Allergies Allergy/AdvReac Type Severity Reaction Status Date / Time No Known Drug Allergies Allergy Verified 12/20/20 13:00 - Social History Does the pt smoke?: No Smoking Status: Never smoker Does the pt drink ETOH?: No Does the pt have substance abuse?: No - Immunizations Immunizations are current?: Yes - POLST Patient has POLST: No PD ED PE NORMAL - Vitals Vital signs reviewed: Yes - General General: Alert and oriented X 3, No acute distress - HEENT HEENT: Atraumatic, PERRL, EOMI, Moist mucous membranes - Neck Neck: Supple, no meningeal sign - Respiratory Respiratory: No respiratory distress - Derm Derm: Normal color, Warm and dry, No rash - Extremities Extremities: No deformity - Neuro Neuro: Alert and oriented X 3, operations support representative 2-12 intact, No motor deficit, No sensory deficit, Normal speech - Psych Psych: Normal mood, Normal affect Results - Vitals Vitals: Vital Signs - 24 hr 12/20/20 13:00 Temperature 36.7 C Heart Rate 87 Respiratory 16 Rate Blood Pressure 138/79 H O2 Saturation 99 Oxygen O2 Source Room air PD MEDICAL DECISION MAKING - ED course Complexity details: considered differential, d/w patient ED course: I discussed with the patient that his symptoms are not indicative of a stroke at this time. I do not feel that further work-up is indicated in the ED, given the very focal and short-lived nature of the sense of numbness, as well as the lack of other symptoms. We have discussed home management of patient's illness and symptoms, as well as the usual indications for return. Departure - Departure Disposition: 01 Home, Self Care Clinical Impression: Numbness Condition: Stable Instructions: ED Paraesthesias
--- OUTSIDE RECORDS SUMMARY | 2020-12-20 13:23 | EXTERNAL MEDICAL SUMMARY RPT | Continuity of Care Document ---
:1965 Demographics Phone Unavailable Preferred Language Costa Rican Marital Status Unknown Mormonism Affiliation Unknown Race Unknown Ethnic Group Unknown Author Organization [place] Address [address] [phone] Phone Allergies Encounters Medications Problems date description facility [id number] Malignant neoplasm of [facility] Results
== END 2020-12-20 13:31 | disposition home or self-care (01) ==
LOC: ED 12:57
DX: R20.0 Anesthesia of skin (principal); Z85.118 Personal history of other malignant neoplasm of bronchus and lung; Z79.82 Long term (current) use of aspirin
CPT/HCPCS: 99281; 99284

== ENCOUNTER 2021-02-01 08:00 | Outpatient (CLI) | payer OTHER | END 2021-02-01 08:01 | disposition home or self-care (01) | LOC: LAB.N 08:00 | PROVIDERS: ATTEND Family Medicine | DX: J34.89 Other specified disorders of nose and nasal sinuses (principal); Z20.822 Contact with and (suspected) exposure to COVID-19 ==

== ENCOUNTER 2021-02-01 14:30 | Emergency (ER) | payer OTHER ==
--- NOTE | 2021-02-01 15:06 | ED Physician Documentation ---
PD HPI HEADACHE - Stated complaint Stated Complaint: HEAD PRESSURE - Chief complaint Chief Complaint: Heent - History obtained from History obtained from: Patient - History of Present Illness Timing - onset: How many days ago (few) PD PAST MEDICAL HISTORY - Past Medical History Cardiovascular: None Respiratory: Other Neuro: None Endocrine/Autoimmune: None GI: GERD, Other : None HEENT: None Psych: None Musculoskeletal: None Derm: None - Past Surgical History Past Surgical History: Yes General: Bowel surgery, Colonoscopy Cardiovascular: Lobectomy HEENT: Other - Present Medications Home Medications: Ambulatory Orders Medication Instructions Recorded Confirmed Omeprazole [PriLOSEC] 20 mg PO DAILY 09/20/17 01/31/21 Multivitamin [Multiple Vitamins] 1 tab PO DAILY 04/12/18 01/31/21 Aspirin [Aspirin EC] 81 mg PO DAILY 10/09/19 01/31/21 Cholecalciferol (Vitamin D3) 2,000 unit PO DAILY 10/09/19 01/31/21 [Vitamin D3] Sucralfate [Carafate] 1 gm PO TID 10/09/19 01/31/21 polyethylene glycoL 3350 [Miralax] 17 gm PO DAILY 12/08/19 01/31/21 Ondansetron Odt [Zofran] 4 mg TL Q6H PRN #10 tablet 05/16/20 01/31/21 Folic Acid 1 mg PO DAILY 12/14/20 01/31/21 dexAMETHasone [Decadron] 4 mg PO BID 12/14/20 01/31/21 Osimertinib Mesylate [Tagrisso] 80 mg PO DAILY 01/04/21 01/31/21 Cetirizine [ZyrTEC] 10 mg PO DAILY #15 tablet 02/01/21 dexAMETHasone [Decadron] 4 mg PO DAILY #5 tablet 02/01/21 oxyCODONE [Roxicodone] 5 mg PO Q4-6H PRN #12 tablet 02/01/21 - Allergies Allergies/Adverse Reactions: Allergies Allergy/AdvReac Type Severity Reaction Status Date / Time No Known Drug Allergies Allergy Verified 02/01/21 14:33 - Social History Does the pt smoke?: No Smoking Status: Never smoker Does the pt drink ETOH?: No Does the pt have substance abuse?: No - Immunizations Immunizations are current?: Yes - POLST Patient has POLST: No Results - Vitals Vitals: Vital Signs - 24 hr 02/01/21 14:33 Temperature 36.6 C Heart Rate 88 Respiratory 16 Rate Blood Pressure 125/83 H O2 Saturation 99 Oxygen O2 Source Room air - Labs Labs: Laboratory Tests 02/01/21 15:51 Sodium 130 L Potassium 3.7 Chloride 94 L Carbon Dioxide 22 Anion Gap 14.0 H BUN 12 Creatinine 1.1 Estimated GFR (MDRD) 69 L Glucose 112 H Calcium 8.5 Departure - Departure Disposition: 01 Home, Self Care Clinical Impression: Frontal headache, Sinus pain Condition: Stable Record reviewed to determine appropriate education?: Yes Instructions: ED Headache Sinus Prescriptions: dexAMETHasone [Decadron] 4 mg PO DAILY #5 tablet oxyCODONE [Roxicodone] 5 mg PO Q4-6H PRN #12 tablet PRN Reason: Pain Cetirizine [ZyrTEC] 10 mg PO DAILY #15 tablet Comments: Your lites areYour head CT is read as normal. We will as well. You presumed than your frontal headache is from sinus pressure. It does not sound like a sinus infection per se. Continue the Flonase spray as previously directed. Add Decadron oral steroid daily for 5 more days. (It will not have the same nauseating effect as the IV version did). Also use cetirizine antihistamine twice daily for the next week. To that add Tylenol 500 mg 4 times a day for pain and oxycodone every 4-6 hours if needed for worse pain beyond that. I would anticipate improvement over the next couple of days and not needing too much stronger pain medicine beyond that. Recheck if not improved in that timeframe. I am prescribing a short course of narcotic pain medication for you. These are potentially dangerous and addictive medications that should be used carefully. These medications may constipate you. Take an [id number] stool softener such as docusate twice daily with plenty of water while taking these medications. If you go 24 hours without a bowel movement, take [id number] MiraLAX, per package instructions. Do not drink or drive while taking these medications. If you received narcotic or sedating medications while in the emergency department do not drive for 24 hours. Store this medication in a safe, secure place and out of reach of children. It is a violation of federal law to give or sell this medication to another person or to use in a manner other than prescribed. The ED will not refill narcotic prescriptions, including prescriptions lost or s tolen. You can dispose of unwanted medications at the [facility]'s office or at several pharmacies such as [facility]
[2021-02-01 16:06] LABS: CALCIUM 8.5 mg/dL (8.5-10.3); CREATININE 1.1 mg/dL (0.6-1.2); POTASSIUM 3.7 mmol/L (3.5-5.0)
[2021-02-01] MEDS ORDERED: IOVERSOL 320 100 ML VIAL IVP ONE ×2 (16:27→16:44)
--- NOTE | 2021-02-01 17:00 | CT Report ---
PROCEDURE: HEAD W INDICATIONS: frontal headache, history of lung CA with bone met CONTRAST: IV CONTRAST: Optiray 320 ml: 100 PO CONTRAST: *NO PO CONTRAST TECHNIQUE: 4.5 mm thick angled axial sections acquired from the foramen magnum to the vertex after the administr ation of intravenous contrast. For radiation dose reduction, the following was used: automated expo sure control, adjustment of mA and/or kV according to patient size. COMPARISON: None. FINDINGS: Image quality: Excellent. CSF Spaces: Basal cisterns are patent. No extra-axial fluid collections. Ventricles are normal in size and shape. Brain: No midline shift. No intracranial masses. No definite intracranial hemorrhage, however subtl e/small intracranial hemorrhage cannot be excluded by contrasted CT scan of the head. No abnormal int racranial enhancement. Kennedy-white interface appears normal. Dural sinuses demonstrate normal postcon trast enhancement. There is normal postcontrast enhancement of the major central cerebral vasculature . Skull and face: Calvarium and visualized facial bones appear intact, without suspicious lesions. Sinuses: Visualized sinuses and mastoids are clear. IMPRESSION: 1. No abnormal intracranial mass or mass effect. 2. No suspicious postcontrast enhancement. 3. Intracranial hemorrhage cannot be completely excluded by contrast and CT scan of the head. Reviewed by: Xenia Whittington MD, PhD on 02/01/2021 4:58 PM PDT Approved by: Xenia Whittington MD, PhD on 02/01/2021 4:58 PM PDT Station ID: [id number]
[2021-02-01] MEDS ORDERED: HYDROmorphone 1 MG/ML CARPUJECT IVP STA (17:08)
[2021-02-01] MEDS ORDERED: KETOROLAC 15 MG/ML VIAL IVP STA (17:08)
[2021-02-01] MEDS ORDERED: DEXAMETHASONE 10 MG/ML VIAL IVP STA (17:08)
[2021-02-01 17:45] VITALS: BP 130/82
== END 2021-02-01 17:45 | disposition home or self-care (01) ==
LOC: ED 14:30
DX: R51.9 Headache, unspecified (principal); Z79.82 Long term (current) use of aspirin
CPT/HCPCS: 36415; 70460; 80048; 96374; 96375; 99283; 99284; Q9967

== ENCOUNTER 2021-03-18 10:20 | Outpatient (CLI) | payer OTHER | END 2021-03-18 10:21 | disposition home or self-care (01) | LOC: DI 10:20 | PROVIDERS: ATTEND Physician Assistant | DX: C34.32 Malignant neoplasm of lower lobe, left bronchus or lung (principal); C77.9 Secondary and unspecified malignant neoplasm of lymph node, unspecified; Z79.899 Other long term (current) drug therapy | CPT/HCPCS: 93306 ==

== ENCOUNTER 2021-03-20 21:57 | Inpatient (IN) | payer OTHER ==
--- NOTE | 2021-03-20 22:11 | ED Physician Documentation ---
PD HPI ABD PAIN - Stated complaint Stated Complaint: ABD PX - Chief complaint Chief Complaint: Abd Pain - History obtained from History obtained from: Patient - History of Present Illness Timing - onset: Today (this morning (03/20)) Timing - details: Abrupt onset, Waxing and waning Pain level max: 8 Pain level now: 4 Quality: Cramping, Pain Location: All over / everywhere (predominantly epigastric) Improved by: Other (no ameliorating factors) Worsened by: Other (worsened with PO intake ,but at times worsens even without PO intake) Associated symptoms: Nausea, Vomiting. No: Fever, Diarrhea, Constipation Similar symptoms before: Diagnosis (h/o SBO) Recently seen: Not recently seen - Additional information Additional information: patient c/o sudden onset epigastric pain this morning shortly after eating breakfast from a fast food restaurant. He has had nausea and vomiting along with waxing and waning abdominal pain since onset this morning. The symptoms are worsened with PO intake although some exacerbations were without apparent provocation. he does not feel constipated and has had bowel movements during the course of the day. He has h/o colon cancer with left colectomy 2017, and has been admitted to [facility] in the past for SBO. Review of Systems Constitutional: reports: Reviewed and negative Cardiac: reports: Reviewed and negative Respiratory: reports: Reviewed and negative GI: reports: Abdominal Pain, Nausea, Vomiting. denies: Constipation, Diarrhea, Hematemesis, Bloody / black stool : denies: Dysuria, Frequency Skin: reports: Reviewed and negative PD PAST MEDICAL HISTORY - Past Medical History Cardiovascular: None Respiratory: Other Neuro: None Endocrine/Autoimmune: None GI: GERD, Other : None HEENT: None Psych: None Musculoskeletal: None Derm: None - Past Surgical History Past Surgical History: Yes General: Bowel surgery, Colonoscopy Cardiovascular: Lobectomy HEENT: Other - Present Medications Home Medications: Ambulatory Orders Medication Instructions Recorded Confirmed Omeprazole [PriLOSEC] 20 mg PO DAILY 09/20/17 03/20/21 Multivitamin [Multiple Vitamins] 1 tab PO DAILY 04/12/18 03/20/21 Aspirin [Aspirin EC] 81 mg PO DAILY 10/09/19 03/20/21 Cholecalciferol (Vitamin D3) 2,000 unit PO DAILY 10/09/19 03/20/21 [Vitamin D3] Sucralfate [Carafate] 1 gm PO TID 10/09/19 03/20/21 polyethylene glycoL 3350 [Miralax] 17 gm PO DAILY 12/08/19 03/20/21 Ondansetron Odt [Zofran] 4 mg TL Q6H PRN #10 tablet 05/16/20 03/20/21 Folic Acid 1 mg PO DAILY 12/14/20 03/20/21 dexAMETHasone [Decadron] 4 mg PO BID 12/14/20 03/20/21 Osimertinib Mesylate [Tagrisso] 80 mg PO DAILY 01/04/21 03/20/21 Cetirizine [ZyrTEC] 10 mg PO DAILY #15 tablet 02/01/21 03/20/21 dexAMETHasone [Decadron] 4 mg PO DAILY #5 tablet 02/01/21 03/20/21 oxyCODONE [Roxicodone] 5 mg PO Q4-6H PRN #12 tablet 02/01/21 03/20/21 - Allergies Allergies/Adverse Reactions: Allergies Allergy/AdvReac Type Severity Reaction Status Date / Time No Known Drug Allergies Allergy Verified 03/20/21 21:59 - Social History Does the pt smoke?: No Smoking Status: Never smoker Does the pt drink ETOH?: No Does the pt have substance abuse?: No - Immunizations Immunizations are current?: Yes - POLST Patient has POLST: No PD ED PE NORMAL - Vitals Vital signs reviewed: Yes - General General: Alert and oriented X 3, No acute distress, Well developed/nourished - HEENT HEENT: Other (tacky/pasty mucous membranes) - Neck Neck: Supple, no meningeal sign - Cardiac Cardiac: RRR - Respiratory Respiratory: No respiratory distress, Clear bilaterally - Abdomen Abdomen: Soft, Non distended, Other (mild epigastric TTP without rebound or guarding) - Derm Derm: Normal color, Warm and dry Results - Vitals Vitals: Vital Signs - 24 hr 03/20/21 03/20/21 03/20/21 21:59 22:04 23:45 Temperature 36.8 C 36.8 C Heart Rate 120 H 120 H 90 Respiratory 16 16 16 Rate Blood Pressure 148/89 H 148/89 H 145/88 H O2 Saturation 98 98 98 03/21/21 03/21/21 01:00 03:00 Temperature 36.7 C Heart Rate 89 92 Respiratory 17 18 Rate Blood Pressure 147/99 H 148/98 H O2 Saturation 98 99 Oxygen O2 Source Room air - Labs Labs: Laboratory Tests 03/20/21 03/20/21 03/21/21 22:49 22:49 01:58 WBC 8.7 RBC 4.32 L Hgb 12.6 L Hct 37.8 L MCV 87.5 MCH 29.2 MCHC 33.3 RDW 14.0 Plt Count 180 MPV 10.0 Neut # (Auto) 5.7 Lymph # (Auto) 1.7 Arroyo # (Auto) 1.1 H Eos # (Auto) 0.1 Baso # (Auto) 0.0 Absolute Nucleated RBC 0.00 Nucleated RBC % 0.0 Sodium 134 L Potassium 3.2 L Chloride 99 L Carbon Dioxide 24 Anion Gap 11.0 BUN 13 Creatinine 1.0 Estimated GFR (MDRD) 77 L Glucose 115 H Calcium 9.6 Total Bilirubin 1.1 H AST 31 ALT 21 Alkaline Phosphatase 45 Total Protein 9.1 H Albumin 4.5 Globulin 4.6 H Albumin/Globulin Ratio 1.0 Lipase 39 Nasal Adenovirus (PCR) NOT DETECTED Nasal B. parapertussis DNA (PCR) NOT DETECTED Nasal Coronavir 229E PCR NOT DETECTED Nasal Coronavir HKU1 PCR NOT DETECTED Nasal Coronavir NL63 PCR NOT DETECTED Nasal Coronavir OC43 PCR NOT DETECTED Nasal Enterovir/Rhinovir PCR NOT DETECTED Nasal Influenza B PCR NOT DETECTED Nasal Influenza A PCR NOT DETECTED Nasal Parainfluen 1 PCR NOT DETECTED Nasal Parainfluen 2 PCR NOT DETECTED Nasal Parainfluen 3 PCR NOT DETECTED Nasal Parainfluen 4 PCR NOT DETECTED Nasal RSV (PCR) NOT DETECTED Nasal B.pertussis DNA PCR NOT DETECTED Nasal C.pneumoniae (PCR) NOT DETECTED Gil Human Metapneumo PCR NOT DETECTED Nasal M.pneumoniae (PCR) NOT DETECTED Nasal SARS-CoV-2 (PCR) NOT DETECTED - Rads (name of study) CT A/P with IV and PO contrast Radiology: Prelim report reviewed, See rad report, Other (unable to tolerate any significant amount of PO contrast) PD MEDICAL DECISION MAKING - ED course Complexity details: reviewed old records, reviewed results, re-evaluated patient, considered differential, d/w patient ED course: HPI s/o SBO and CT A/P demonstrates moderate partial SBO. He was unable to tolerate any significant amount of PO contrast due to n/v and abdominal pain. Case d/w Dr. Sánchez (awning craftsperson surgery), recommends NGT and admit to hospitalist. I then d/w Dr. Guillermo (hospitalist), accepts to [facility] hospitalist service. Departure - Departure Disposition: ED Place in Observation Clinical Impression: SBO (small bowel obstruction) Condition: Stable Discharge Date/Time: 03/21/21 03:53
[2021-03-20] MEDS ORDERED: ONDANSETRON 4 MG/2 ML VIAL IVP STA (23:03)
[2021-03-20] MEDS ORDERED: SODIUM CHLORIDE 0.9% 1,000 ML IV STA (23:03)
[2021-03-20 23:09] LABS: BASOPHILS % (AUTO) 0.5 %; EOSINOPHILS # (AUTO) 0.1 10^3/uL (0.0-0.7); EOSINOPHILS % (AUTO) 0.9 %; HCT - HEMATOCRIT 37.8 % (42.0-52.0); HGB - HEMOGLOBIN 12.6 g/dL (14.0-18.0); LYMPHOCYTES # (AUTO) 1.7 10^3/uL (1.5-3.5); LYMPHOCYTES % (AUTO) 19.7 %; MEAN CORPUSCULAR HEMOGLOBIN 29.2 pg (27.0-31.0); MEAN CORPUSCULAR HGB CONC 33.3 g/dL (32.0-36.0); MEAN CORPUSCULAR VOLUME 87.5 fL (80.0-94.0); MONOCYTES # (AUTO) 1.1 10^3/uL (0.0-1.0); MONOCYTES % (AUTO) 13.1 %; NEUTROPHILS # (AUTO) 5.7 10^3/uL (1.5-6.6); NEUTROPHILS % (AUTO) 65.3 %; PLT - PLATELET COUNT 180 10^3/uL (130-450); RED BLOOD COUNT 4.32 10^6/uL (4.70-6.10); WHITE BLOOD COUNT 8.7 x10^3/uL (4.8-10.8)
[2021-03-20] MEDS ORDERED: IOVERSOL 320 50 ML VIAL ONE (23:15)
[2021-03-20] MEDS ORDERED: IOPAMIDOL-300 50 ML VIAL ONE (23:16)
[2021-03-20 23:18] LABS: ALBUMIN 4.5 g/dL (3.2-5.5); BILIRUBIN,TOTAL 1.1 mg/dL (0.2-1.0); CALCIUM 9.6 mg/dL (8.5-10.3); POTASSIUM 3.2 mmol/L (3.5-5.0); TOTAL PROTEIN 9.1 g/dL (6.7-8.2)
[2021-03-21] MEDS ORDERED: IOVERSOL 320 50 ML VIAL PO ONE (00:22)
[2021-03-21] MEDS ORDERED: IOPAMIDOL-300 50 ML VIAL IVP ONE (00:47)
[2021-03-21] MEDS ORDERED: KETOROLAC 30 MG/ML VIAL IVP STA (01:20)
--- NOTE | 2021-03-21 01:53 | CT Report ---
PROCEDURE: Abdomen/Pelvis W INDICATIONS: abdominal pain, nausea CONTRAST: IV CONTRAST: Isovue 300 ml: 100 PO CONTRAST: Optiray 320 ml50 TECHNIQUE: After the administration of oral contrast, 5 mm thick sections acquired from the diaphragms to the sy mphysis. 5 mm thick coronal and sagittal reformats were acquired. For radiation dose reduction, the following was used: automated exposure control, adjustment of mA and/or kV according to patient siz e. COMPARISON: CT abdomen and pelvisMulitp FINDINGS: Image quality: Excellent. ABDOMEN: Lung bases: Lung bases are clear. Heart size is normal. Solid organs: Liver and spleen are normal in size and enhancement. Multiple low attenuation hepatic foci consistent with cysts are unchanged. Gallbladder is unremarkable. Biliary system is non dilat ed. Pancreas enhances normally. No adrenal nodules. Kidneys demonstrate normal size and enhancemen t, without hydronephrosis. Peritoneum and bowel: Bowel loops demonstrate dilated, fluid filled loops of small bowel with greate st AP dimension of 4.4 cm. Transition point appears to be in the left mid abdomen. No free fluid or air. Nodes and vessels: No retroperitoneal or mesenteric adenopathy by size criteria. Aorta and inferior vena cava are normal in size. Miscellaneous: No ventral hernias. PELVIS: Genitourinary: Bladder wall thickness is normal. Miscellaneous: No inguinal hernias or adenopathy. Bones: Previous L2 lucent lesion now demonstrates interval progression to sclerosis. No vertebral b yimi compression fractures. IMPRESSION: 1. Moderate partial small bowel obstruction. 2. Evolution of previous L2 lucent lesion, now sclerotic. As previously noted, given interval incre ase in size and now sclerotic, malignancy such as metastatic disease cannot be excluded. Further lv luation with bone scan may be helpful as indicated for further evaluation. Reviewed by: Jacque Lundberg MD on 03/21/2021 1:52 AM PDT Approved by: Jacque Lundberg MD on 03/21/2021 1:52 AM PDT Station ID: [id number]
[2021-03-21] MEDS ORDERED: LIDOCAINE JELLY 2% 6 ML JEL.PF.APP TOP STA (02:40)
[2021-03-21 03:09] LABS: B. PARAPERTUSSIS- RESP PCR PAN NOT DETECTED; B. PERTUSSIS- RESP PCR PANEL NOT DETECTED; C. PNEUMONIAE- RESP PCR PANEL NOT DETECTED; CORONAVIRUS 229E-RESP PCR NOT DETECTED; CORONAVIRUS HKU1-RESP PCR NOT DETECTED; CORONAVIRUS NL63-RESP PCR NOT DETECTED; CORONAVIRUS OC43-RESP PCR NOT DETECTED; HUMAN METAPNEUMOVIRUS NOT DETECTED; INFLUENZA A- RESP PCR PANEL NOT DETECTED; INFLUENZA B - RESP PCR PANEL NOT DETECTED; M. PNEUMONIAE- RESP PCR PANEL NOT DETECTED; PARAINFLUENZA VIRUS 1 NOT DETECTED; PARAINFLUENZA VIRUS 2 NOT DETECTED; PARAINFLUENZA VIRUS 3 NOT DETECTED; PARAINFLUENZA VIRUS 4 NOT DETECTED; RHINOVIRUS/ENTEROVIRUS NOT DETECTED; RSV- RESP PCR PANEL NOT DETECTED; SARS-CoV-2 -RESP PCR PANEL NOT DETECTED
[2021-03-21] MEDS ORDERED: HYDROmorphone 0.5 MG/0.5 ML SYRINGE IVP PRN ×2 (03:18→20:33)
--- NOTE | 2021-03-21 03:25 | HISTORY & PHYSICAL EXAMINATION ---
Chief Complaint - Chief Complaint Chief Complaint: Abd pain History of Present Illness - Admitted From Admitted From:: ED - History Obtained From History obtained from: ED provider, EMR review and patient - History of Present Illness HPI Comment/Other: This is a 56-year-old [place] male with a history of lung cancer with lobectomy and colon cancer with partial colectomy. He had an admission here in September 2019 for small bowel obstruction with transition point near the umbilicus and this resolved with NG tube decompression and bowel rest. He is followed closely at the [facility] Oncology clinic here. There are mets to the spine at L2 confirmed by biopsy several mos ago. His chemotherapy was stopped in November 2020, when the mets were found. He has been on tumor-directed therapy since December, which has given him nausea, loss of taste and loss of smell. His taste and appetite returned and this morning he ate a large [employer] breakfast, but started to get abdominal pain 1 hour later. Patient presented to the ED due to persistent abdominal pain all day, and nausea with minimal vomiting. In the ED, work-up showed essentially normal labs, tachycardia but normal blood pressure and no fever. He underwent abdominal CT which showed dilated intestines and small bowel obstruction, moderate, transition point at the left mid-abdomen. The ED provider called the surgeon who advised admission and NG tube insertion for decompression be done. The patient is being admitted to the Hospitalist service with surgical consultation. History - Past Medical History Cardiovascular: reports: None Respiratory: reports: Other (Lung Cancer) Neuro: reports: None Endocrine/Autoimmune: reports: None GI: reports: GERD, Other (Colon cancer) : reports: None HEENT: reports: None Psych: reports: None Musculoskeletal: reports: None Derm: reports: None MRSA Hx?: No - Past Surgical History General: reports: Bowel surgery, Colonoscopy Cardiovascular: reports: Lobectomy HEENT: reports: Other - Family & Social History Family History Comment/Other: He reports no family history to his knowledge. Living arrangement: At home Social History Notes: He has been living here on [facility] since 2001. 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 Denies a history of smoking and alcohol use. - Substance History Use: Uses substance without health or social issues: NONE - POLST Patient has POLST: No Meds/Allgy - Home Medications Home Medications: Ambulatory Orders Medication Instructions Recorded Confirmed Omeprazole [PriLOSEC] 20 mg PO DAILY 09/20/17 03/20/21 Multivitamin [Multiple Vitamins] 1 tab PO DAILY 04/12/18 03/20/21 Aspirin [Aspirin EC] 81 mg PO DAILY 10/09/19 03/20/21 Cholecalciferol (Vitamin D3) 2,000 unit PO DAILY 10/09/19 03/20/21 [Vitamin D3] Sucralfate [Carafate] 1 gm PO TID 10/09/19 03/20/21 polyethylene glycoL 3350 [Miralax] 17 gm PO DAILY 12/08/19 03/20/21 Ondansetron Odt [Zofran] 4 mg TL Q6H PRN #10 tablet 05/16/20 03/20/21 Folic Acid 1 mg PO DAILY 12/14/20 03/20/21 dexAMETHasone [Decadron] 4 mg PO BID 12/14/20 03/20/21 Osimertinib Mesylate [Tagrisso] 80 mg PO DAILY 01/04/21 03/20/21 Cetirizine [ZyrTEC] 10 mg PO DAILY #15 tablet 02/01/21 03/20/21 dexAMETHasone [Decadron] 4 mg PO DAILY #5 tablet 02/01/21 03/20/21 oxyCODONE [Roxicodone] 5 mg PO Q4-6H PRN #12 tablet 02/01/21 03/20/21 - Allergies Allergies/Adverse Reactions: Allergies Allergy/AdvReac Type Severity Reaction Status Date / Time No Known Drug Allergies Allergy Verified 03/20/21 21:59 Review of Systems - Constitutional Constitutional: reports: Poor appetite - Gastrointestinal Gastrointestinal: reports: Abdominal pain, Nausea, Vomiting - Neurological Neurological: reports: Headache, Other (Taste changes) - All Other Systems All Other Systems: reports: Reviewed and negative Exam - Vital Signs Reviewed Vital Signs: Yes Vital Signs: Vital Signs x48h Temp Pulse Resp BP Pulse Ox 03/21/21 03:00 92 18 148/98 H 99 03/21/21 01:00 36.7 C 89 17 147/99 H 98 03/20/21 23:45 90 16 145/88 H 98 03/20/21 22:04 36.8 C 120 H 16 148/89 H 98 03/20/21 21:59 36.8 C 120 H 16 148/89 H 98 - Physical Exam General Appearance: positive: No acute distress, Alert Eyes Bilateral: positive: Normal inspection, EOMI ENT: positive: ENT inspection nml, No signs of dehydration, Other (ng tube in place, draining brown liquid) Neck: positive: Nml inspection, No JVD Cardiovascular: positive: Regular rate & rhythm, No murmur Abdomen: positive: Other (Mild distension, no guarding or rebound. Bowel sounds are soft, present only in the left mid and left lower abdomen.) Skin: positive: Warm, Dry Extremities: positive: Non-tender, No pedal edema Neurologic/Psychiatric: positive: Oriented x3, Other (Non-focal) Conclusion/Plan - Problem List (1) SBO (small bowel obstruction) Conclusion/Plan: Presents with abdominal pain, nausea, vomiting and found to have bowel obstruction at left mid abdomen on CT. NG tube has been placed in the ER. Will order NPO and ng to suction. Start meds for controlling his pain with Dilaudid IV. Zofran or Compazine as need for nausea. Hydration with LR. General Surgery consult. He may need a Gastrografin challenge. (2) Hypokalemia Conclusion/Plan: Potassium was low at admission, probably from N/V. Will order K riders to replace intravenously. Monitor BMP on a daily basis. (3) History of colon cancer, stage II Conclusion/Plan: This was diagnosed with stage II left colon cancer in 02/2017 and he was treated with a left colectomy. His [facility] Oncology note from 2 weeks ago stated: CEA had risen to 200 range recently with negative scans (09/2020) and colonoscopy. CEA now declined dramatically to 20, ever since on tumor-directed therapy (palliative Carbo/Pemetraxate/Keytruda 12/17/2020 x1 cycle and is on Osimertinib 80 mg qd 01/11/2021) CT today showed a bone lesions at L2, and was read as "malignancy could not be ruled out". He will continue outpatient follow-up with Dr. Villa. (4) History of lung cancer Conclusion/Plan: He has history of left upper lobe cancer and is status post lobectomy done in 07/2017. He did receive treatment with Cisplatin/Navelbine. 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 He started palliative Carbo/Pemetraxate/Keytruda 12/17/2020 x1 cycle and Osimertinib 80 mg qd 01/11/2021. CT today showed bone lesions at L2, and read as "malignancy could not be ruled out". He will continue outpatient follow-up with Dr. Villa. (5) GERD (gastroesophageal reflux disease) Conclusion/Plan: He was on PPI at home. Will order IV Protonix. - Lab Results Fish Bones: 03/20/21 22:49 03/20/21 22:49 - Diagnostic Imaging Results Diagnostic Imaging Results: positive: Final report reviewed
[2021-03-21] MEDS: LACTATED RINGERS 1,000 ML IV SCH ×3 (03:47→22:17)
[2021-03-21] MEDS: POTASSIUM CHLOR 10 MEQ/100 ML 10 MEQ/100 ML BAG IV SCH ×3 (03:47→07:48)
[2021-03-21 05:49] LABS: HCT - HEMATOCRIT 38.5 % (42.0-52.0); HGB - HEMOGLOBIN 12.4 g/dL (14.0-18.0); MEAN CORPUSCULAR HEMOGLOBIN 28.4 pg (27.0-31.0); MEAN CORPUSCULAR HGB CONC 32.2 g/dL (32.0-36.0); MEAN CORPUSCULAR VOLUME 88.3 fL (80.0-94.0); RED BLOOD COUNT 4.36 10^6/uL (4.70-6.10); RED CELL DISTRIBUTION WIDTH 14.2 % (12.0-15.0); WHITE BLOOD COUNT 7.7 x10^3/uL (4.8-10.8)
[2021-03-21 06:02] LABS: CALCIUM 9.3 mg/dL (8.5-10.3); CREATININE 1.1 mg/dL (0.6-1.2); MAGNESIUM 2.3 mg/dL (1.7-2.8); POTASSIUM 3.7 mmol/L (3.5-5.0)
[2021-03-21] MEDS: SODIUM CHLORIDE FLUSH 0.9% 10 ML SYRINGE IVP PRN ×3 (06:46→13:23)
[2021-03-21] MEDS: ONDANSETRON 4 MG/2 ML VIAL IVP PRN ×2 (06:46→13:22)
[2021-03-21] MEDS: PANTOPRAZOLE 40 MG VIAL IVP SCH (08:30)
[2021-03-21] MEDS: PROCHLORPERAZINE 10 MG/2 ML VIAL IVP PRN ×2 (08:30→16:00)
[2021-03-21] MEDS: SODIUM CHLORIDE FLUSH 0.9% 10 ML SYRINGE IVP SCH ×3 (08:38→23:38)
--- NOTE | 2021-03-21 08:55 | CONSULTATION NOTE ---
Surgery Consult - Admit Date Hospital Admission Date: 03/21/21 - Consult Date Consult Date: 03/21/21 - Chief Complaint Chief Complaint: abdominal pain - Home Meds/Allergies Home Medications: Patient History Medication Instructions Recorded Confirmed Omeprazole [PriLOSEC] 20 mg PO DAILY 09/20/17 03/20/21 Multivitamin [Multiple Vitamins] 1 tab PO DAILY 04/12/18 03/20/21 Aspirin [Aspirin EC] 81 mg PO DAILY 10/09/19 03/20/21 Cholecalciferol (Vitamin D3) 2,000 unit PO DAILY 10/09/19 03/20/21 [Vitamin D3] Sucralfate [Carafate] 1 gm PO TID 10/09/19 03/20/21 polyethylene glycoL 3350 [Miralax] 17 gm PO DAILY 12/08/19 03/20/21 Folic Acid 1 mg PO DAILY 12/14/20 03/20/21 dexAMETHasone [Decadron] 4 mg PO BID 12/14/20 03/20/21 Osimertinib Mesylate [Tagrisso] 80 mg PO DAILY 01/04/21 03/20/21 Allergies/Adverse Reactions: Allergies Allergy/AdvReac Type Severity Reaction Status Date / Time No Known Drug Allergies Allergy Verified 03/20/21 21:59 - Vital Signs Vital Signs: Last Vital Signs Temp 36.5 C 03/21/21 08:00 Pulse 93 03/21/21 08:00 Resp 14 03/21/21 08:00 BP 151/105 H 03/21/21 08:00 Pulse Ox 99 03/21/21 08:00 Intake & Output: Intake & Output 03/18/21 03/19/21 03/20/21 03/21/21 23:59 23:59 23:59 23:59 Intake Total 1207.083 Output Total 200 Balance 1007.083 - Lab Results Result Diagrams: 03/21/21 05:26 03/21/21 05:26 - Consultation Note Consultation Note: 56 yo male with colon cancer resected 2017 presents with abdominal cramping and bloating onset yesterday after eating at [email or web address]. Admitted 2am this morning. NG inserted, no flatus or BM since admit. Colon surgery was lap assisted resection by Dr Jordan London here at [facility]. Monitored with CEA for recurrence and met found in L2. Diagnosed with lung cancer and had lobectomy 2018. Has had chemo and a biologic. CEA has dropped from 200 to 20 recently. Followed by oncology here. EXAM: Alert, awake, no distress Chest clear CV RRsM Abdomen: mildly distended. No hernias or palpable mass. Nontender, no guarding or rigidity. Labs: nl WBC CT abdomen: some distended loops of SB, no free air. Assess: SBO, history of lap colon resection for colon CA 2017 Hx lung cancer, resected 2018 Treated for metastatic colon cancer to L2 Plan: Gastrograffin study today Continue NPO with NGT Signing out to surgeon environmental protection geologist today. Geraldo Sánchez MD
[2021-03-21] MEDS: KETOROLAC 15 MG/ML VIAL IVP PRN ×2 (10:37→21:14)
--- NOTE | 2021-03-21 12:44 | PHARMACY PROGRESS NOTE ---
- Best Possible Medication History Admit Date and Time: 03/21/21311 Processed by: Pharmacy Medication History completed: Yes Patient Interview: Completed Secondary Source(s): Pharmacy records, Insurance records As the person ultimately responsible for medication therapy, providers are able to order a medication from an existing home medication list in [facility] via the "Reconcile Routine" prior to Confirmation of that medication by health support specialist. Such practice is discouraged except when the physician, in their clinical judgment, deems that a medical need exists for a medication without regard to previous use.
[2021-03-21] MEDS ORDERED: SODIUM CHLORIDE 0.9% 1,000 ML IV ONE (20:08)
[2021-03-22] MEDS: PROCHLORPERAZINE 10 MG/2 ML VIAL IVP PRN ×2 (04:52→13:13)
[2021-03-22] MEDS: SODIUM CHLORIDE FLUSH 0.9% 10 ML SYRINGE IVP PRN ×3 (04:52→07:33)
[2021-03-22] MEDS: PANTOPRAZOLE 40 MG VIAL IVP SCH (06:11)
[2021-03-22] MEDS: KETOROLAC 15 MG/ML VIAL IVP PRN ×3 (07:33→19:55)
[2021-03-22] MEDS: SODIUM CHLORIDE FLUSH 0.9% 10 ML SYRINGE IVP SCH ×2 (08:11→19:47)
[2021-03-22] MEDS: LACTATED RINGERS 1,000 ML IV SCH (08:31)
[2021-03-22] MEDS ORDERED: DIATRIZOATE MEGLU/DIATRIZO SOD 30 ML BOTTLE PO ONE (11:14)
--- NOTE | 2021-03-22 11:36 | PROVIDER PROGRESS NOTE ---
Assessment/Plan - Current Meds Current Meds: Current Medications Generic Name Dose Route Start Last Admin Trade Name Freq PRN Reason Stop Dose Admin Lactated Ringer's 1,000 mls @ 100 mls/hr 03/21/21 04:00 03/22/21 08:31 Lr IV 100 mls/hr .Q10H LUIS Administration Ketorolac Tromethamine 15 mg 03/21/21 09:13 03/22/21 07:33 Ketorolac 15 Mg/Ml Vial IVP 03/23/21 09:12 15 mg Q6HR PRN Administration PAIN Ondansetron HCl 4 mg 03/21/21 03:18 03/21/21 13:22 Ondansetron 4 Mg/2 Ml Vial IVP 4 mg Q6HR PRN Administration Nausea / Vomiting Pantoprazole Sodium 40 mg 03/21/21 08:00 03/22/21 06:11 Pantoprazole 40 Mg Vial IVP 40 mg QDAC LUIS Administration Prochlorperazine Edisylate 10 mg 03/21/21 03:18 03/22/21 04:52 Prochlorperazine 10 Mg/2 Ml Vial IVP 10 mg Q6HR PRN Administration Nausea / Vomiting Sodium Chloride 10 ml 03/21/21 03:18 03/22/21 07:33 Sodium Chloride Flush 0.9% 10 Ml Syringe IVP 10 ml PRN PRN Administration NEEDED PER PROVIDER ORDERS Sodium Chloride 10 ml 03/21/21 09:00 03/22/21 08:11 Sodium Chloride Flush 0.9% 10 Ml Syringe IVP Not Given 0100,0900,1700 LUIS - Lab Result Fish Bone Diagrams: 03/21/21 05:26 03/21/21 05:26 - Additional Planning My Orders: KUB, gastrograffin SBFT (no fluoro, only plain films) Plan Discussed with:: Patient Time Spent: 15-30 minutes Subjective - Subjective Patient Reports: Feeling Better (Wants NG out. Passed flatus last night but no BM.), Resting Comfortably Objective Vital Signs: Vital Signs - 24 hr 03/21/21 03/21/21 03/22/21 13:26 16:00 00:00 Temperature 37.2 C 37.7 C 36.9 C Heart Rate [ 108 H 109 H 107 H Brachial] Respiratory 24 22 18 Rate Blood Pressure 140/92 H 136/94 H 130/84 H [Left Brachial artery] O2 Saturation 98 95 97 03/22/21 08:00 Temperature 36.8 C Heart Rate [ 104 H Brachial] Respiratory 16 Rate Blood Pressure 151/90 H [Left Brachial artery] O2 Saturation 96 Oxygen O2 Source Room air I&O (Last 24 Hrs): Intake and Output Totals x24h 03/20/21 03/21/21 03/22/21 23:59 23:59 23:59 Intake Total 3242.083 1060 Output Total 2475 1450 Balance 767.083 -390 General: Alert, No acute distress Abdomen: Soft, No tenderness - Results Results: Laboratory Results WBC 7.7 x10^3/uL (4.8-10.8) 03/21/21 05:26 RBC 4.36 10^6/uL (4.70-6.10) L 03/21/21 05:26 Hgb 12.4 g/dL (14.0-18.0) L 03/21/21 05:26 Hct 38.5 % (42.0-52.0) L 03/21/21 05:26 MCV 88.3 fL (80.0-94.0) 03/21/21 05:26 MCH 28.4 pg (27.0-31.0) 03/21/21 05:26 MCHC 32.2 g/dL (32.0-36.0) 03/21/21 05:26 RDW 14.2 % (12.0-15.0) 03/21/21 05:26 Plt Count 180 10^3/uL (130-450) 03/21/21 05:26 MPV 10.0 fL (7.4-11.4) 03/21/21 05:26 Neut # (Auto) 5.7 10^3/uL (1.5-6.6) 03/20/21 22:49 Lymph # (Auto) 1.7 10^3/uL (1.5-3.5) 03/20/21 22:49 [place] # (Auto) 1.1 10^3/uL (0.0-1.0) H 03/20/21 22:49 Eos # (Auto) 0.1 10^3/uL (0.0-0.7) 03/20/21 22:49 Baso # (Auto) 0.0 10^3/uL (0.0-0.1) 03/20/21 22:49 Absolute Nucleated RBC 0.00 x10^3/uL 03/20/21 22:49 Nucleated RBC % 0.0 /100WBC 03/20/21 22:49 Sodium 138 mmol/L (135-145) 03/21/21 05:26 Potassium 3.7 mmol/L (3.5-5.0) 03/21/21 05:26 Chloride 101 mmol/L (101-111) 03/21/21 05:26 Carbon Dioxide 25 mmol/L (21-32) 03/21/21 05:26 Anion Gap 12.0 (6-13) 03/21/21 05:26 BUN 14 mg/dL (6-20) 03/21/21 05:26 Creatinine 1.1 mg/dL (0.6-1.2) 03/21/21 05:26 Estimated GFR (MDRD) 69 (>89) L 03/21/21 05:26 Glucose 118 mg/dL (70-100) H 03/21/21 05:26 Calcium 9.3 mg/dL (8.5-10.3) 03/21/21 05:26 Magnesium 2.3 mg/dL (1.7-2.8) 03/21/21 05:26 Total Bilirubin 1.1 mg/dL (0.2-1.0) H 03/20/21 22:49 AST 31 IU/L (10-42) 03/20/21 22:49 ALT 21 IU/L (10-60) 03/20/21 22:49 Alkaline Phosphatase 45 IU/L (42-121) 03/20/21 22:49 Total Protein 9.1 g/dL (6.7-8.2) H 03/20/21 22:49 Albumin 4.5 g/dL (3.2-5.5) 03/20/21 22:49 Globulin 4.6 g/dL (2.1-4.2) H 03/20/21 22:49 Albumin/Globulin Ratio 1.0 (1.0-2.2) 03/20/21 22:49 Lipase 39 U/L (22-51) 03/20/21 22:49 Nasal Adenovirus (PCR) NOT DETECTED 03/21/21 01:58 Nasal B. parapertussis DNA (PCR) NOT DETECTED 03/21/21 01:58 Nasal Coronavir 229E PCR NOT DETECTED 03/21/21 01:58 Nasal Coronavir HKU1 PCR NOT DETECTED 03/21/21 01:58 Nasal Coronavir NL63 PCR NOT DETECTED 03/21/21 01:58 Nasal Coronavir OC43 PCR NOT DETECTED 03/21/21 01:58 Nasal Enterovir/Rhinovir PCR NOT DETECTED 03/21/21 01:58 Nasal Influenza B PCR NOT DETECTED 03/21/21 01:58 Nasal Influenza A PCR NOT DETECTED 03/21/21 01:58 Nasal Parainfluen 1 PCR NOT DETECTED 03/21/21 01:58 Nasal Parainfluen 2 PCR NOT DETECTED 03/21/21 01:58 Nasal Parainfluen 3 PCR NOT DETECTED 03/21/21 01:58 Nasal Parainfluen 4 PCR NOT DETECTED 03/21/21 01:58 Nasal RSV (PCR) NOT DETECTED 03/21/21 01:58 Nasal B.pertussis DNA PCR NOT DETECTED 03/21/21 01:58 Nasal C.pneumoniae (PCR) NOT DETECTED 03/21/21 01:58 Gil Human Metapneumo PCR NOT DETECTED 03/21/21 01:58 Nasal M.pneumoniae (PCR) NOT DETECTED 03/21/21 01:58 Nasal SARS-CoV-2 (PCR) NOT DETECTED 03/21/21 01:58 - Procedures Procedures: Procedures EXCISION OF DESCENDING COLON, ENDO, DIAGN (02/20/17) EXCISION OF LEFT LARGE INTESTINE, PERC ENDO APPROACH (03/07/17) EXCISION OF RECTUM, ENDO, DIAGN (02/20/17) EXCISION OF SIGMOID COLON, ENDO (04/12/18) EXCISION OF STOMACH, PYLORUS, ENDO, DIAGN (10/02/17) EXCISION OF TRANSVERSE COLON, ENDO, DIAGN (02/20/17) INSERT VAD RESERVOIR IN CHEST SUBCU/FASCIA, OPEN (09/12/17) REMOVAL OF INFUSION DEVICE FROM UPPER VEIN, OPEN APPROACH (04/12/18) REMOVAL OF RESERVOIR FROM TRUNK SUBCU/FASCIA, OPEN APPROACH (04/12/18) ABX Reporting Has patient been on IV antibiotics over the past 48 hours?: No
--- NOTE | 2021-03-22 12:02 | PROVIDER PROGRESS NOTE ---
Subjective - Prog Note Date Prog Note Date: 03/22/21 - Subjective Subjective: He reports feeling better today. Reports minimal nausea and minimal abdominal pain. He passed flatus yesterday evening but not today. Still no bowel movement. He does want the NG tube out as soon as possible. Current Medications - Current Medications Current Medications: Active Medications Hydromorphone HCl (Hydromorphone 0.5 Mg/0.5 Ml Syringe) 0.5 mg IVP Q2H PRN PRN Reason: Pain 8 to 10 Lactated Ringer's (Lr) 1,000 mls @ 100 mls/hr IV .Q10H [facility] Last Admin: 03/22/21 08:31 Dose: 100 mls/hr Documented by: Ketorolac Tromethamine (Ketorolac 15 Mg/Ml Vial) 15 mg IVP Q6HR PRN PRN Reason: PAIN Stop: 03/23/21 09:12 Last Admin: 03/22/21 07:33 Dose: 15 mg Documented by: Ondansetron HCl (Ondansetron 4 Mg/2 Ml Vial) 4 mg IVP Q6HR PRN PRN Reason: Nausea / Vomiting Last Admin: 03/21/21 13:22 Dose: 4 mg Documented by: Pantoprazole Sodium (Pantoprazole 40 Mg Vial) 40 mg IVP QDAC [facility] Last Admin: 03/22/21 06:11 Dose: 40 mg Documented by: Prochlorperazine Edisylate (Prochlorperazine 10 Mg/2 Ml Vial) 10 mg IVP Q6HR PRN PRN Reason: Nausea / Vomiting Last Admin: 03/22/21 04:52 Dose: 10 mg Documented by: Sodium Chloride (Sodium Chloride Flush 0.9% 10 Ml Syringe) 10 ml IVP PRN PRN PRN Reason: NEEDED PER PROVIDER ORDERS Last Admin: 03/22/21 07:33 Dose: 10 ml Documented by: Sodium Chloride (Sodium Chloride Flush 0.9% 10 Ml Syringe) 10 ml IVP 0100,0900,1700 [facility] Last Admin: 03/22/21 08:11 Dose: Not Given Documented by: Omeprazole [PriLOSEC] 20 mg PO DAILY 09/20/17 Multivitamin [Multiple Vitamins] 1 tab PO DAILY 04/12/18 Cholecalciferol (Vitamin D3) [Vitamin D3] 2,000 unit PO DAILY 10/09/19 polyethylene glycoL 3350 [Miralax] 17 gm PO Q48H 12/08/19 Osimertinib Mesylate [Tagrisso] 80 mg PO DAILY 01/04/21 Tamsulosin [Flomax] 0.4 mg PO DAILY 03/21/21 Objective - Vital Signs/Intake & Output Reviewed Vital Signs: Yes Vital Signs: Vital Signs x48h Temp Pulse Resp BP Pulse Ox 03/22/21 08:00 36.8 C 104 H 16 151/90 H 96 Intake & Output: Intake & Output 03/19/21 03/20/21 03/21/21 03/22/21 23:59 23:59 23:59 23:59 Intake Total 3242.083 1060 Output Total 2475 1450 Balance 767.083 -390 - Objective General Appearance: positive: No acute distress, Alert Eyes Bilateral: positive: Normal inspection, Conjunctivae nml ENT: positive: ENT inspection nml, Other (NG tube in place. Clamped.) Neck: positive: Nml inspection Respiratory: positive: No respiratory distress. negative: Wheezes, Rales Cardiovascular: positive: Tachycardia. negative: Irregularly irregular, Bradycardia, Systolic murmur Abdomen: positive: Tenderness (Minimal diffuse tenderness), Abnml bowel sounds (Hyperactive). negative: Guarding, Rebound Skin: positive: Warm, Dry Extremities: positive: No pedal edema Neurologic/Psychiatric: positive: Motor nml. negative: Disoriented to person, Disoriented to place, Disoriented to time - Lab Results Fish Bones: 03/21/21 05:26 03/21/21 05:26 Assessment/Plan - Problem List (1) SBO (small bowel obstruction) Impression: He has had nearly a liter out since the NG tube was placed. He has minimal ab dominal pain now and no further episodes of emesis and his nausea is improved. He has passed flatus but no bowel movement. Discussed with general surgery today and we will do a Gastrografin challenge. We will clamp the NG tube for this. If his symptoms continue to improve then we will consider a clear liquid diet in the a.m. with advancement as tolerated. Continue pain control Dilaudid IV as needed. Continue IV hydration. Zofran as needed for nausea. Appreciate general surgery input. (2) History of colon cancer Impression: He has a history of colon cancer in February 2017 which was treated with a left hemicolectomy. He likely has adhesions causing the small bowel obstruction above. He will continue to follow-up with Dr. Villa on an outpatient basis. (3) History of lung cancer Impression: He also history of left upper lobe lung cancer status post lobectomy followed by treatment with chemotherapy. He has been started on palliative carboplatin, pemetrexed, Keytruda in November and is now on osimertinib. We are holding the osimertinib given he is n.p.o. He will continue outpatient follow-up with Dr. Villa once discharged.
[2021-03-22] MEDS: ONDANSETRON 4 MG/2 ML VIAL IVP PRN (14:25)
[2021-03-22] MEDS ORDERED: METOCLOPRAMIDE 10 MG/2 ML VIAL IVP PRN (16:07)
[2021-03-22] MEDS ORDERED: MORPHINE 2 MG/ML CARPUJECT IVP PRN (16:07)
[2021-03-22] MEDS ORDERED: ATROPINE ABBOJECT 1 MG/10 ML SYRINGE IVP PRN (16:07)
[2021-03-22] MEDS ORDERED: fentaNYL 100 MCG/2 ML VIAL IVP PRN (16:07)
[2021-03-22] MEDS ORDERED: ePHEDrine 50 MG/ML VIAL IVP PRN (16:07)
[2021-03-22] MEDS ORDERED: NALOXONE 0.4 MG/ML VIAL IVP PRN (16:07)
[2021-03-22] MEDS ORDERED: ONDANSETRON 4 MG/2 ML VIAL IVP PRN (16:07)
[2021-03-22] MEDS ORDERED: HYDROmorphone 0.5 MG/0.5 ML SYRINGE IVP PRN (16:07)
--- NOTE | 2021-03-22 16:07 | ANESTHESIA ---
Pre-Anesthesia VS, & Labs - Diagnosis small bowel obstruction - Procedure exploratory laparotomy Vital Signs: Temp Pulse Resp BP Pulse Ox 36.8 C 104 H 16 151/90 H 96 03/22/21 08:00 03/22/21 08:00 03/22/21 08:00 03/22/21 08:00 03/22/21 08:00 Height: 5 ft 8 in Weight (kg): 72 kg Body Mass Index: 24.1 BMI Classification: Healthy weight - NPO >8 hours - Lab Results Current Lab Results: Laboratory Tests 03/21/21 05:26: Sodium 138, Potassium 3.7, Chloride 101, Carbon Dioxide 25, Anion Gap 12.0, BUN 14, Creatinine 1.1, Estimated GFR (MDRD) 69 L, Glucose 118 H , Calcium 9.3, Magnesium 2.3 03/21/21 05:26: WBC 7.7, RBC 4.36 L, Hgb 12.4 L, Hct 38.5 L, MCV 88.3, MCH 28.4, MCHC 32.2, RDW 14.2, Plt Count 180, MPV 10.0 03/20/21 22:49: Sodium 134 L, Potassium 3.2 L, Chloride 99 L, Carbon Dioxide 24, Anion Gap 11.0, BUN 13, Creatinine 1.0, Estimated GFR (MDRD) 77 L, Glucose 115 H , Calcium 9.6, Total Bilirubin 1.1 H, AST 31, ALT 21, Alkaline Phosphatase 45, Total Protein 9.1 H, Albumin 4.5, Globulin 4.6 H, Albumin/Globulin Ratio 1.0, Lipase 39 03/20/21 22:49: WBC 8.7, RBC 4.32 L, Hgb 12.6 L, Hct 37.8 L, MCV 87.5, MCH 29.2, MCHC 33.3, RDW 14.0, Plt Count 180, MPV 10.0, Neut # (Auto) 5.7, Lymph # (Auto) 1.7, [place] # (Auto) 1.1 H, Eos # (Auto) 0.1, Baso # (Auto) 0.0, Absolute Nucleated RBC 0.00, Nucleated RBC % 0.0 Lab results reviewed: Yes Fish Bones: 03/21/21 05:26 03/21/21 05:26 Home Medications and Allergies Home Medications: Ambulatory Orders Tamsulosin [Flomax] 0.4 mg PO DAILY 03/21/21 Active Medications Hydromorphone HCl (Hydromorphone 0.5 Mg/0.5 Ml Syringe) 0.5 mg IVP Q2H PRN PRN Reason: Pain 8 to 10 Lactated Ringer's (Lr) 1,000 mls @ 100 mls/hr IV .Q10H [facility] Last Admin: 03/22/21 08:31 Dose: 100 mls/hr Documented by: Ketorolac Tromethamine (Ketorolac 15 Mg/Ml Vial) 15 mg IVP Q6HR PRN PRN Reason: PAIN Stop: 03/23/21 09:12 Last Admin: 03/22/21 13:12 Dose: 15 mg Documented by: Ondansetron HCl (Ondansetron 4 Mg/2 Ml Vial) 4 mg IVP Q6HR PRN PRN Reason: Nausea / Vomiting Last Admin: 03/22/21 14:25 Dose: 4 mg Documented by: Pantoprazole Sodium (Pantoprazole 40 Mg Vial) 40 mg IVP QDAC [facility] Last Admin: 03/22/21 06:11 Dose: 40 mg Documented by: Prochlorperazine Edisylate (Prochlorperazine 10 Mg/2 Ml Vial) 10 mg IVP Q6HR PRN PRN Reason: Nausea / Vomiting Last Admin: 03/22/21 13:13 Dose: 10 mg Documented by: Sodium Chloride (Sodium Chloride Flush 0.9% 10 Ml Syringe) 10 ml IVP PRN PRN PRN Reason: NEEDED PER PROVIDER ORDERS Last Admin: 03/22/21 07:33 Dose: 10 ml Documented by: Sodium Chloride (Sodium Chloride Flush 0.9% 10 Ml Syringe) 10 ml IVP 0100,0900,1700 [facility] Last Admin: 03/22/21 08:11 Dose: Not Given Documented by: Omeprazole [PriLOSEC] 20 mg PO DAILY 09/20/17 Multivitamin [Multiple Vitamins] 1 tab PO DAILY 04/12/18 Cholecalciferol (Vitamin D3) [Vitamin D3] 2,000 unit PO DAILY 10/09/19 polyethylene glycoL 3350 [Miralax] 17 gm PO Q48H 12/08/19 Osimertinib Mesylate [Tagrisso] 80 mg PO DAILY 01/04/21 Tamsulosin [Flomax] 0.4 mg PO DAILY 03/21/21 Allergies/Adverse Reactions: Allergies Allergy/AdvReac Type Severity Reaction Status Date / Time No Known Drug Allergies Allergy Verified 03/20/21 21:59 Anes History & Medical History - Anesthetic History Anesthesia Complications: reports: No previous complications Family history of Anesthesia Complications: Denies Family history of Malignant Hyperthermia: Denies - Medical History Cardiovascular: reports: None Pulmonary: reports: Other Gastrointestinal: reports: GERD, Other Urinary: reports: None Neuro: reports: None Musculoskeletal: reports: None Endocrine/Autoimmune: reports: None Blood Disorders: reports: None Skin: reports: None Smoking Status: Never smoker Psychosocial: reports: No issues indicated History of Cancer?: No - Surgical History General: reports: Bowel surgery, Colonoscopy Eyes Ears Nose Throat (EENT): reports: Other Cardiothoracic: reports: Lobectomy Exam General: Alert, Oriented x3, Cooperative Dental: WNL Mouth Openin Fingerbreadth Neck Mobility: Normal Mallampati classification: II Thyromental Distance: 4-6 cm Respiratory: Lungs clear, Normal breath sounds, No respiratory distress Cardiovascular: Regular rate Neurological: Normal speech Mental/Cognitive Status: Alert/Oriented X3, Normal for patient Cognitive Status: Within normal limits Plan Anesthesia Type: General Consent for Procedure(s) Verified and Reviewed: Yes Code Status: Attempt Resuscitation ASA classification: 2-Mild systemic disease Is this case an emergency?: Yes
--- NOTE | 2021-03-22 16:12 | PROVIDER PROGRESS NOTE ---
Subjective - General Admit Date: 03/21/21 - Review of Systems All Other Systems: positive: Reviewed and negative - Other Other Information/Narrative: Patient has had abdominal pain and nausea with vomiting after gastrograffin given. Films show no progression of contrast into colon after 4 hours, with no significsnt change in images at 2 and 4 hours. Patient consented for exploratory laparotomy, possible bowel resection. Risks of infection, bleeding, possible bowel resection, possible need for additional surgery discussed with patient, who agrees to proceed. Objective - Patient Data Weight: Weight 03/20/21 03/21/21 03/22/21 23:59 23:59 23:59 Weight (kg) 73.1 kg 72 kg 72 kg Intake & Output: Intake and Output Totals x24h 03/20/21 03/21/21 03/22/21 23:59 23:59 23:59 Intake Total 3242.083 1080 Output Total 2475 1625 Balance 767.083 -545 - Lab Results Lab Results: 03/21/21 05:26 03/21/21 05:26 - Current Medications Current Medications: Current Medications Generic Name Dose Route Start Last Admin Trade Name Freq PRN Reason Stop Dose Admin Lactated Ringer's 1,000 mls @ 100 mls/hr 03/21/21 04:00 03/22/21 08:31 Lr IV 100 mls/hr .Q10H LUIS Administration Ketorolac Tromethamine 15 mg 03/21/21 09:13 03/22/21 13:12 Ketorolac 15 Mg/Ml Vial IVP 03/23/21 09:12 15 mg Q6HR PRN Administration PAIN Ondansetron HCl 4 mg 03/21/21 03:18 03/22/21 14:25 Ondansetron 4 Mg/2 Ml Vial IVP 4 mg Q6HR PRN Administration Nausea / Vomiting Pantoprazole Sodium 40 mg 03/21/21 08:00 03/22/21 06:11 Pantoprazole 40 Mg Vial IVP 40 mg QDAC LUIS Administration Prochlorperazine Edisylate 10 mg 03/21/21 03:18 03/22/21 13:13 Prochlorperazine 10 Mg/2 Ml Vial IVP 10 mg Q6HR PRN Administration Nausea / Vomiting Sodium Chloride 10 ml 03/21/21 03:18 03/22/21 07:33 Sodium Chloride Flush 0.9% 10 Ml Syringe IVP 10 ml PRN PRN Administration NEEDED PER PROVIDER ORDERS Sodium Chloride 10 ml 03/21/21 09:00 03/22/21 08:11 Sodium Chloride Flush 0.9% 10 Ml Syringe IVP Not Given 0100,0900,1700 LUIS
[2021-03-22] MEDS ORDERED: LIDOCAINE 1% 50 ML MDV ONE (16:17)
[2021-03-22] MEDS ORDERED: MIDAZOLAM 2 MG/2 ML VIAL ONE (16:17)
[2021-03-22] MEDS ORDERED: BUPIVACAINE 0.25% PF 30 ML VIAL ONE (16:17)
[2021-03-22] MEDS ORDERED: LIDOCAINE-MPF 2% 5 ML VIAL ONE (16:18)
[2021-03-22] MEDS ORDERED: PROPOFOL 200 MG/20 ML VIAL IVP ONE (16:18)
--- NOTE | 2021-03-22 16:31 | XRAY Report ---
PROCEDURE: Small Bowel Follow Through INDICATIONS: Bowel obstruction. COMPARISON: 03/21/2021 CT CONTRAST: CONTRAST: GASTRORAFIN FINDINGS: Markedly dilated loops of small bowel similar to the recent CT examination. Enteric contrast administ ered via NG tube diffuses throughout the fluid distended small bowel. Minimal amount contrast is pres ent in the cecum at the 4 hour mitzi. This is likely not due to forward transit but rather to diffusio n of contrast material. IMPRESSION: Findings consistent with persistent small bowel obstruction, no significant improvement from recent CT. Reviewed by: Kane Rodgers MD on 03/22/2021 4:29 PM PDT Approved by: Kane Rodgers MD on 03/22/2021 4:29 PM PDT Station ID: [id number]
[2021-03-22] MEDS ORDERED: fentaNYL 100 MCG/2 ML VIAL ONE (16:53)
[2021-03-22] MEDS ORDERED: PHENYLEPHRINE 10 MG/ML VIAL ONE (16:55)
[2021-03-22] MEDS ORDERED: ceFAZolin 1 GM VIAL ONE (17:00)
[2021-03-22] MEDS ORDERED: LACTATED RINGERS 1,000 ML IV SCH (17:00)
[2021-03-22] MEDS ORDERED: DEXAMETHASONE 4 MG/ML VIAL ONE (17:14)
[2021-03-22] MEDS ORDERED: ONDANSETRON 4 MG/2 ML VIAL ONE (17:14)
[2021-03-22] MEDS ORDERED: SUGAMMADEX 200 MG/2 ML VIAL IVP ONE (17:57)
[2021-03-22] MEDS ORDERED: ACETAMINOPHEN 1,000 MG/100 ML 100 ML IV ONE (18:01)
--- NOTE | 2021-03-22 18:22 | OPERATIVE REPORT ---
Operative Report - General Admit Date: 03/21/21 Procedure Date: 03/22/21 Planned Procedure: Exploratory laparotomy Pre-Op Diagnosis: SBO Procedure Performed: Exploratory laparotomy with small bowel resection Post Op Diagnosis: SBO with adhesion from small bowel to abdominal wall at umbilicus - Procedure Note Primary Surgeon: Gonzalo Secondary Surgeon: sindy Anesthesia Provider: Shun STREETER Anesthesia Technique: General ET tube IV Fluids (mL): 2,000 Estimated Blood Loss (mL): 50 Urine Output (mL): 100 Indications: SBO 4 years post lap left colon resection Findings: Loop of mid-small bowel densely adherent to abdominal wall at umbilical trocar scar. Bowel was twisted at this point and after release was too thinned to allow primary closure, requiring resection. - Other Other Information/Narrative: The patient was taken to the operating room where general anesthesia was induced, patient was intubated, the abdomen was prepped with ChloraPrep and sterilely draped in the usual fashion. Timeout was accomplished prior to skin incision. Ancef 2 g was given IV prior to skin incision. A midline incision was made from the umbilicus to the symphysis pubis with a scalpel and cautery dissection was taken through the subcutaneous fat to the midline fascia. Midline fascia was incised and the abdomen was explored. A dense adhesion from the mid small bowel to the anterior abdominal wall at the umbilicus was noted. The bowel was twisted around this point. Proximal bowel was dilated distal bowel was not. The small bowel was dissected off of the dense adhesion at the umbilical trocar scar site. After the bowel was resected the serosa was seen to be disrupted for a large area. Attempt was made to close the serosa with interrupted 3-0 GI silks this caused too much narrowing and decision was made to resect the small bowel at that area. Cautery is used to make a small opening in the small bowel mesentery proximal and distal to the area of the obstruction. ALEX staplers were fired across the bowel in both areas. Mesentery was divided with clamps and 3-0 silk ties and specimen was handed off the field. The proximal and distal bowel were approximated and openings were created at the antimesenteric border of the staple lines and a ALEX stapler was fired again creating the anastomosis. A TX 50 stapler was used to resect the openings in the small bowel staple lines and close the defect. The staple line was reinforced with interrupted 3-0 silks. The defect in the mesentery was closed with interrupted 3-0 silk. Bowel contents were milked proximal to distal through the anastomosis with no leakage and widely patent anastomosis. Surgical team changed gloves and the abdomen was then irrigated well with saline. The small bowel was run and no additional stenotic or adhesed areas were noted. The abdomen was suctioned dry and the fascia was closed with running 0 PDS double-stranded. Subcutaneous tissues were approximated with 3-0 Vicryl and skin was closed with clips. Sterile dressing was applied and the patient was then extubated and taken to recovery room in stable condition
[2021-03-22] MEDS ORDERED: SODIUM CHLORIDE FLUSH 0.9% 10 ML SYRINGE IVP PRN (18:32)
[2021-03-22] MEDS ORDERED: LACTATED RINGERS 1,000 ML IV ONE (18:34)
[2021-03-22] MEDS ORDERED: BUPIVACAINE 0.5% PF 30 ML VIAL INFIL ONE (18:35)
[2021-03-22] MEDS ORDERED: LIDOCAINE 1% 50 ML MDV SUBQ ONE (18:35)
[2021-03-22] MEDS ORDERED: HYDROmorphone 0.5 MG/0.5 ML SYRINGE ONE (19:00)
--- NOTE | 2021-03-22 19:10 | ANESTHESIA POST OP EVALUATION ---
Anesthesia Post Eval - Post Anesthesia Eval Vitals: Last Vital Signs Temp 36.8 C 03/22/21 18:40 Pulse 105 H 03/22/21 19:06 Resp 16 03/22/21 19:06 BP 129/84 H 03/22/21 19:06 Pulse Ox 95 03/22/21 19:06 CV Function Including HR & BP: Stable Pain Control: Satisfactory (0.5mg dilaudid for entyre pacu stay) Nausea & Vomiting: Negative (NGT inplace) Mental Status: Baseline Respiratory Status: Airway Patent Hydration Status: Satisfactory Anesthesia Complications: None
[2021-03-22] MEDS: metroNIDAZOLE 500 MG/100 ML 500 MG/100 ML BAG IV SCH (19:46)
[2021-03-22] MEDS: HYDROmorphone 0.5 MG/0.5 ML SYRINGE IVP PRN (21:25)
[2021-03-22] MEDS: ceFAZolin 2 GM in SODIUM CHLORIDE 0.9% 100ML 100 ML IV SCH (22:18)
[2021-03-23] MEDS: HYDROmorphone 0.5 MG/0.5 ML SYRINGE IVP PRN (00:16)
[2021-03-23] MEDS: SODIUM CHLORIDE FLUSH 0.9% 10 ML SYRINGE IVP SCH ×4 (00:17→23:59)
[2021-03-23] MEDS: SODIUM CHLORIDE FLUSH 0.9% 10 ML SYRINGE IVP PRN ×2 (00:17→02:20)
[2021-03-23] MEDS ORDERED: SODIUM CHLORIDE FLUSH 0.9% 10 ML SYRINGE IVP SCH (01:00)
[2021-03-23] MEDS: LACTATED RINGERS 1,000 ML IV SCH ×4 (01:28→23:02)
[2021-03-23] MEDS: KETOROLAC 15 MG/ML VIAL IVP PRN (02:20)
[2021-03-23] MEDS: metroNIDAZOLE 500 MG/100 ML 500 MG/100 ML BAG IV SCH ×2 (02:59→11:24)
[2021-03-23] MEDS: ceFAZolin 2 GM in SODIUM CHLORIDE 0.9% 100ML 100 ML IV SCH (05:37)
[2021-03-23] MEDS: PANTOPRAZOLE 40 MG VIAL IVP SCH (06:22)
--- NOTE | 2021-03-23 07:34 | PROVIDER PROGRESS NOTE ---
Subjective - Prog Note Date Prog Note Date: 03/23/21 - Subjective Subjective: Feels much better today. He reports having a bowel movement yesterday evening. Reports only minimal abdominal pain. Does complain of heartburn. He would like the NG tube out. Current Medications - Current Medications Current Medications: Active Medications Hydromorphone HCl (Hydromorphone 0.5 Mg/0.5 Ml Syringe) 0.5 mg IVP Q2H PRN PRN Reason: Pain 8 to 10 Last Admin: 03/23/21 00:16 Dose: 0.5 mg Documented by: Lactated Ringer's (Lr) 1,000 mls @ 100 mls/hr IV .Q10H [facility] Last Admin: 03/23/21 01:28 Dose: 100 mls/hr Documented by: Metronidazole (Flagyl 500 Mg/100 Ml) 500 mg in 100 mls @ 100 mls/hr IV Q8H [facility] Stop: 03/23/21 11:59 Last Infusion: 03/23/21 03:59 Dose: Infused Documented by: Ketorolac Tromethamine (Ketorolac 15 Mg/Ml Vial) 15 mg IVP Q6HR PRN PRN Reason: PAIN Stop: 03/23/21 09:12 Last Admin: 03/23/21 02:20 Dose: 15 mg Documented by: Ondansetron HCl (Ondansetron 4 Mg/2 Ml Vial) 4 mg IVP Q6HR PRN PRN Reason: Nausea / Vomiting Last Admin: 03/22/21 14:25 Dose: 4 mg Documented by: Pantoprazole Sodium (Pantoprazole 40 Mg Vial) 40 mg IVP QDAC [facility] Last Admin: 03/23/21 06:22 Dose: 40 mg Documented by: Prochlorperazine Edisylate (Prochlorperazine 10 Mg/2 Ml Vial) 10 mg IVP Q6HR PRN PRN Reason: Nausea / Vomiting Last Admin: 03/22/21 13:13 Dose: 10 mg Documented by: Sodium Chloride (Sodium Chloride Flush 0.9% 10 Ml Syringe) 10 ml IVP PRN PRN PRN Reason: NEEDED PER PROVIDER ORDERS Last Admin: 03/23/21 02:20 Dose: 10 ml Documented by: Sodium Chloride (Sodium Chloride Flush 0.9% 10 Ml Syringe) 10 ml IVP 0100,0900,1700 [facility] Last Admin: 03/23/21 00:17 Dose: 10 ml Documented by: Omeprazole [PriLOSEC] 20 mg PO DAILY 09/20/17 Multivitamin [Multiple Vitamins] 1 tab PO DAILY 04/12/18 Cholecalciferol (Vitamin D3) [Vitamin D3] 2,000 unit PO DAILY 10/09/19 polyethylene glycoL 3350 [Miralax] 17 gm PO Q48H 12/08/19 Osimertinib Mesylate [Tagrisso] 80 mg PO DAILY 01/04/21 Tamsulosin [Flomax] 0.4 mg PO DAILY 03/21/21 Objective - Vital Signs/Intake & Output Reviewed Vital Signs: Yes Vital Signs: Vital Signs x48h Temp Pulse Resp BP BP Pulse Ox 03/23/21 07:00 37.0 C 98 16 143/94 H 03/23/21 06:59 16 97 03/23/21 04:00 37.4 C 101 H 18 111/70 95 03/23/21 01:30 37.5 C 03/23/21 01:00 37.4 C 95 03/23/21 00:10 38.7 C H 107 H 16 133/85 H 92 Intake & Output: Intake & Output 03/20/21 03/21/21 03/22/21 03/23/21 23:59 23:59 23:59 23:59 Intake Total 3242.083 3240 320 Output Total 2475 2225 375 Balance 545.470 3405 -55 - Objective General Appearance: positive: No acute distress, Alert Eyes Bilateral: positive: Normal inspection, Conjunctivae nml ENT: positive: ENT inspection nml, Other (NG tube in place.) Neck: positive: Nml inspection Respiratory: positive: No respiratory distress. negative: Wheezes, Rales Cardiovascular: positive: Regular rate & rhythm. negative: Tachycardia Abdomen: positive: Non-tender, Nml bowel sounds, No distention, Other (Dressing in place over the incision.). negative: Guarding Skin: positive: Warm, Dry Extremities: positive: No pedal edema Neurologic/Psychiatric: positive: Motor nml. negative: Disoriented to person, Disoriented to place - Lab Results Fish Bones: 03/23/21 08:45 03/21/21 05:26 Assessment/Plan - Problem List (1) SBO (small bowel obstruction) Impression: He is now postop day 1 of an expiratory laparotomy with small bowel resection. There was noted to be an adhesion from the small bowel to the umbilicus. He is also on cefazolin and Flagyl for 24 hours postoperatively. He did have a bowel movement yesterday evening and reports resolution of his abdominal pain. We will continue IV hydration with lactated Ringer's and pain control with Dilaudid IV as needed. Will discuss with general surgery but I suspect the NG tube can likely be removed today and he can be started on clear liquid diet this afternoon. Appreciate general surgery input. (2) Fever Impression: He did have a fever yesterday evening with a temperature of 38.7 C. He has since been afebrile with a normal white count. He was treated with Flagyl and cefazolin for 24 hours postoperatively. Clinically there appears to be no evidence of infection and we will continue to monitor off of antibiotics. (3) History of colon cancer Impression: He has a history of colon cancer in February 2017 which was treated with a left hemicolectomy. He will continue to follow-up with Dr. Villa on an outpatient basis. (4) History of lung cancer Impression: He also history of left upper lobe lung cancer status post lobectomy followed by treatment with chemotherapy. He has been started on palliative carboplatin, pemetrexed, Keytruda in November and is now on osimertinib. We are holding the osimertinib given he is n.p.o. He will continue outpatient follow-up with Dr. Villa once discharged.
[2021-03-23 08:50] LABS: BASOPHILS % (AUTO) 0.1 %; EOSINOPHILS # (AUTO) 0.1 10^3/uL (0.0-0.7); EOSINOPHILS % (AUTO) 1.6 %; HCT - HEMATOCRIT 35.9 % (42.0-52.0); HGB - HEMOGLOBIN 11.7 g/dL (14.0-18.0); LYMPHOCYTES # (AUTO) 0.7 10^3/uL (1.5-3.5); LYMPHOCYTES % (AUTO) 10.7 %; MEAN CORPUSCULAR HEMOGLOBIN 29.3 pg (27.0-31.0); MEAN CORPUSCULAR HGB CONC 32.6 g/dL (32.0-36.0); MEAN CORPUSCULAR VOLUME 89.8 fL (80.0-94.0); MEAN PLATELET VOLUME 9.4 fL (7.4-11.4); MONOCYTES % (AUTO) 14.3 %; NEUTROPHILS # (AUTO) 4.9 10^3/uL (1.5-6.6); NEUTROPHILS % (AUTO) 73.2 %; PLT - PLATELET COUNT 145 10^3/uL (130-450); RED CELL DISTRIBUTION WIDTH 14.1 % (12.0-15.0); WHITE BLOOD COUNT 6.7 x10^3/uL (4.8-10.8)
[2021-03-23 09:16] LABS: ALBUMIN 3.5 g/dL (3.2-5.5); BILIRUBIN,DIRECT 0.2 mg/dL (0.1-0.5); TOTAL PROTEIN 7.8 g/dL (6.7-8.2)
--- NOTE | 2021-03-23 11:07 | PROVIDER PROGRESS NOTE ---
Assessment/Plan - Problem List (1) SBO (small bowel obstruction) Assessment/Plan: POD#1 s/p small bowel resection. NG discontinued. OK to have sips of clears and ice chips. Ambulation encouraged. - Current Meds Current Meds: Current Medications Generic Name Dose Route Start Last Admin Trade Name Freq PRN Reason Stop Dose Admin Hydromorphone HCl 0.5 mg 03/21/21 20:34 03/23/21 00:16 Hydromorphone 0.5 Mg/0.5 Ml Syringe IVP 0.5 mg Q2H PRN Administration Pain 8 to 10 Lactated Ringer's 1,000 mls @ 100 mls/hr 03/21/21 04:00 03/23/21 01:28 Lr IV 100 mls/hr .Q10H [facility] Administration Metronidazole 500 mg in 100 mls @ 100 mls/hr 03/22/21 19:00 03/23/21 03:59 Flagyl 500 Mg/100 Ml IV 03/23/21 11:59 Infused Q8H [facility] Infusion Ondansetron HCl 4 mg 03/21/21 03:18 03/22/21 14:25 Ondansetron 4 Mg/2 Ml Vial IVP 4 mg Q6HR PRN Administration Nausea / Vomiting Pantoprazole Sodium 40 mg 03/21/21 08:00 03/23/21 06:22 Pantoprazole 40 Mg Vial IVP 40 mg QDAC [facility] Administration Prochlorperazine Edisylate 10 mg 03/21/21 03:18 03/22/21 13:13 Prochlorperazine 10 Mg/2 Ml Vial IVP 10 mg Q6HR PRN Administration Nausea / Vomiting Sodium Chloride 10 ml 03/21/21 03:18 03/23/21 02:20 Sodium Chloride Flush 0.9% 10 Ml Syringe IVP 10 ml PRN PRN Administration NEEDED PER PROVIDER ORDERS Sodium Chloride 10 ml 03/21/21 09:00 03/23/21 00:17 Sodium Chloride Flush 0.9% 10 Ml Syringe IVP 10 ml 0100,0900,1700 [facility] Administration - Lab Result Lab results reviewed: Yes Fish Bone Diagrams: 03/23/21 08:45 03/21/21 05:26 - Additional Planning My Orders: My Active Orders 03/22/21 18:32 IV Line/Site Care [RC] QSHIFT Initiate Gen Surg Post Op Care Protocols [OTHERS] Routine Notify Provider - VS Parameter [RC] .notify Post-Op Dressing Change [RC] DAILY Turn, Cough and Deep Breathe [RC] Q1HR Vital Signs [RC] Q30MX2,Q2HX2,Q4HX2,QSHIFT 03/22/21 18:35 FRANCISCO Hose and SCDs [RC] QSHIFT 03/22/21 19:00 metroNIDAZOLE 500 MG/100 ML [Flagyl 500 mg/100 ml] 500 mg in 100 ml IV Q8H Subjective - Subjective Patient Reports: Feeling Better (Loose BMs x 2.) Objective Vital Signs: Vital Signs - 24 hr 03/22/21 03/22/21 03/22/21 16:00 18:27 18:30 Temperature 36.8 C 37.4 C Heart Rate 96 100 Heart Rate [ 118 H Brachial] Respiratory 20 16 22 Rate Blood Pressure 113/80 129/90 H Blood Pressure 159/91 H [Left Brachial artery] Blood Pressure [Right Brachial artery] O2 Saturation 98 99 99 03/22/21 03/22/21 03/22/21 18:36 18:40 18:46 Temperature 36.8 C Heart Rate 102 H 102 H 99 Heart Rate [ Brachial] Respiratory 29 H 15 15 Rate Blood Pressure 143/98 H 133/83 H 123/83 H Blood Pressure [Left Brachial artery] Blood Pressure [Right Brachial artery] O2 Saturation 99 100 95 03/22/21 03/22/21 03/22/21 18:50 18:55 19:02 Temperature Heart Rate 111 H 107 H 100 Heart Rate [ Brachial] Respiratory 20 15 15 Rate Blood Pressure 136/90 H 136/83 H 145/92 H Blood Pressure [Left Brachial artery] Blood Pressure [Right Brachial artery] O2 Saturation 94 93 92 03/22/21 03/22/21 03/22/21 19:06 19:10 19:20 Temperature 36.7 C 37.0 C Heart Rate 105 H 101 H Heart Rate [ 95 Brachial] Respiratory 16 17 16 Rate Blood Pressure 129/84 H 135/83 H Blood Pressure 124/73 [Left Brachial artery] Blood Pressure [Right Brachial artery] O2 Saturation 95 95 94 03/22/21 03/22/21 03/23/21 19:55 22:00 00:10 Temperature 37.0 C 37.0 C 38.7 C H Heart Rate Heart Rate [ 100 107 H Brachial] Respiratory 20 18 16 Rate Blood Pressure Blood Pressure 153/90 H 121/80 133/85 H [Left Brachial artery] Blood Pressure [Right Brachial artery] O2 Saturation 94 96 92 03/23/21 03/23/21 03/23/21 01:00 01:30 04:00 Temperature 37.4 C 37.5 C 37.4 C Heart Rate Heart Rate [ 101 H Brachial] Respiratory 18 Rate Blood Pressure Blood Pressure [Left Brachial artery] Blood Pressure 111/70 [Right Brachial artery] O2 Saturation 95 95 03/23/21 03/23/21 03/23/21 06:59 07:00 08:00 Temperature 37.0 C 36.8 C Heart Rate Heart Rate [ 98 98 Brachial] Respiratory 16 16 18 Rate Blood Pressure Blood Pressure [Left Brachial artery] Blood Pressure 143/94 H 138/84 H [Right Brachial artery] O2 Saturation 97 92 Oxygen O2 Source Room air I&O (Last 24 Hrs): Intake and Output Totals x24h 03/21/21 03/22/21 03/23/21 23:59 23:59 23:59 Intake Total 3242.083 3240 350 Output Total 2475 2225 500 Balance 622.406 3498 -150 Abdomen: Soft (Incision dressing has some blood on it, will change dressing) - Results Results: Laboratory Results WBC 6.7 x10^3/uL (4.8-10.8) 03/23/21 08:45 RBC 4.00 10^6/uL (4.70-6.10) L 03/23/21 08:45 Hgb 11.7 g/dL (14.0-18.0) L 03/23/21 08:45 Hct 35.9 % (42.0-52.0) L 03/23/21 08:45 MCV 89.8 fL (80.0-94.0) 03/23/21 08:45 MCH 29.3 pg (27.0-31.0) 03/23/21 08:45 MCHC 32.6 g/dL (32.0-36.0) 03/23/21 08:45 RDW 14.1 % (12.0-15.0) 03/23/21 08:45 Plt Count 145 10^3/uL (130-450) 03/23/21 08:45 MPV 9.4 fL (7.4-11.4) 03/23/21 08:45 Neut # (Auto) 4.9 10^3/uL (1.5-6.6) 03/23/21 08:45 Lymph # (Auto) 0.7 10^3/uL (1.5-3.5) L 03/23/21 08:45 [place] # (Auto) 1.0 10^3/uL (0.0-1.0) 03/23/21 08:45 Eos # (Auto) 0.1 10^3/uL (0.0-0.7) 03/23/21 08:45 Baso # (Auto) 0.0 10^3/uL (0.0-0.1) 03/23/21 08:45 Absolute Nucleated RBC 0.00 x10^3/uL 03/23/21 08:45 Nucleated RBC % 0.0 /100WBC 03/23/21 08:45 Sodium 138 mmol/L (135-145) 03/21/21 05:26 Potassium 3.7 mmol/L (3.5-5.0) 03/21/21 05:26 Chloride 101 mmol/L (101-111) 03/21/21 05:26 Carbon Dioxide 25 mmol/L (21-32) 03/21/21 05:26 Anion Gap 12.0 (6-13) 03/21/21 05:26 BUN 14 mg/dL (6-20) 03/21/21 05:26 Creatinine 1.1 mg/dL (0.6-1.2) 03/21/21 05:26 Estimated GFR (MDRD) 69 (>89) L 03/21/21 05:26 Glucose 118 mg/dL (70-100) H 03/21/21 05:26 Calcium 9.3 mg/dL (8.5-10.3) 03/21/21 05:26 Magnesium 2.3 mg/dL (1.7-2.8) 03/21/21 05:26 Total Bilirubin 1.0 mg/dL (0.2-1.0) 03/23/21 08:45 Direct Bilirubin 0.2 mg/dL (0.1-0.5) 03/23/21 08:45 AST 32 IU/L (10-42) 03/23/21 08:45 ALT 16 IU/L (10-60) 03/23/21 08:45 Alkaline Phosphatase 35 IU/L (42-121) L 03/23/21 08:45 Total Protein 7.8 g/dL (6.7-8.2) 03/23/21 08:45 Albumin 3.5 g/dL (3.2-5.5) 03/23/21 08:45 Globulin 4.3 g/dL (2.1-4.2) H 03/23/21 08:45 Albumin/Globulin Ratio 1.0 (1.0-2.2) 03/20/21 22:49 Lipase 39 U/L (22-51) 03/20/21 22:49 Nasal Adenovirus (PCR) NOT DETECTED 03/21/21 01:58 Nasal B. parapertussis DNA (PCR) NOT DETECTED 03/21/21 01:58 Nasal Coronavir 229E PCR NOT DETECTED 03/21/21 01:58 Nasal Coronavir HKU1 PCR NOT DETECTED 03/21/21 01:58 Nasal Coronavir NL63 PCR NOT DETECTED 03/21/21 01:58 Nasal Coronavir OC43 PCR NOT DETECTED 03/21/21 01:58 Nasal Enterovir/Rhinovir PCR NOT DETECTED 03/21/21 01:58 Nasal Influenza B PCR NOT DETECTED 03/21/21 01:58 Nasal Influenza A PCR NOT DETECTED 03/21/21 01:58 Nasal Parainfluen 1 PCR NOT DETECTED 03/21/21 01:58 Nasal Parainfluen 2 PCR NOT DETECTED 03/21/21 01:58 Nasal Parainfluen 3 PCR NOT DETECTED 03/21/21 01:58 Nasal Parainfluen 4 PCR NOT DETECTED 03/21/21 01:58 Nasal RSV (PCR) NOT DETECTED 03/21/21 01:58 Nasal B.pertussis DNA PCR NOT DETECTED 03/21/21 01:58 Nasal C.pneumoniae (PCR) NOT DETECTED 03/21/21 01:58 Gil Human Metapneumo PCR NOT DETECTED 03/21/21 01:58 Nasal M.pneumoniae (PCR) NOT DETECTED 03/21/21 01:58 Nasal SARS-CoV-2 (PCR) NOT DETECTED 03/21/21 01:58 - Procedures Procedures: Procedures EXCISION OF DESCENDING COLON, ENDO, DIAGN (02/20/17) EXCISION OF LEFT LARGE INTESTINE, PERC ENDO APPROACH (03/07/17) EXCISION OF RECTUM, ENDO, DIAGN (02/20/17) EXCISION OF SIGMOID COLON, ENDO (04/12/18) EXCISION OF STOMACH, PYLORUS, ENDO, DIAGN (10/02/17) EXCISION OF TRANSVERSE COLON, ENDO, DIAGN (02/20/17) INSERT VAD RESERVOIR IN CHEST SUBCU/FASCIA, OPEN (09/12/17) REMOVAL OF INFUSION DEVICE FROM UPPER VEIN, OPEN APPROACH (04/12/18) REMOVAL OF RESERVOIR FROM TRUNK SUBCU/FASCIA, OPEN APPROACH (04/12/18) ABX Reporting Has patient been on IV antibiotics over the past 48 hours?: No
[2021-03-24] MEDS: SODIUM CHLORIDE FLUSH 0.9% 10 ML SYRINGE IVP SCH ×2 (06:08→06:09)
[2021-03-24] MEDS: PANTOPRAZOLE 40 MG VIAL IVP SCH (06:08)
[2021-03-24 06:58] LABS: CALCIUM 8.6 mg/dL (8.5-10.3); POTASSIUM 3.4 mmol/L (3.5-5.0)
[2021-03-24 07:02] LABS: BASOPHILS % (AUTO) 0.3 %; EOSINOPHILS % (AUTO) 0.3 %; HCT - HEMATOCRIT 34.7 % (42.0-52.0); LYMPHOCYTES # (AUTO) 1.2 10^3/uL (1.5-3.5); MEAN CORPUSCULAR HEMOGLOBIN 28.9 pg (27.0-31.0); MEAN CORPUSCULAR HGB CONC 31.7 g/dL (32.0-36.0); MEAN CORPUSCULAR VOLUME 91.3 fL (80.0-94.0); MEAN PLATELET VOLUME 10.5 fL (7.4-11.4); MONOCYTES # (AUTO) 0.9 10^3/uL (0.0-1.0); NEUTROPHILS # (AUTO) 4.5 10^3/uL (1.5-6.6); NEUTROPHILS % (AUTO) 68.1 %; PLT - PLATELET COUNT 138 10^3/uL (130-450); RED CELL DISTRIBUTION WIDTH 13.9 % (12.0-15.0); WHITE BLOOD COUNT 6.6 x10^3/uL (4.8-10.8)
--- NOTE | 2021-03-24 07:32 | PROVIDER PROGRESS NOTE ---
Subjective - Prog Note Date Prog Note Date: 03/24/21 - Subjective Subjective: He feels quite well. He had another bowel movement yesterday evening. Has mild abdominal pain at the site of the incision but otherwise feels well. No nausea or vomiting. Current Medications - Current Medications Current Medications: Active Medications Hydromorphone HCl (Hydromorphone 0.5 Mg/0.5 Ml Syringe) 0.5 mg IVP Q2H PRN PRN Reason: Pain 8 to 10 Last Admin: 03/23/21 00:16 Dose: 0.5 mg Documented by: Lactated Ringer's (Lr) 1,000 mls @ 100 mls/hr IV .Q10H [facility] Last Admin: 03/23/21 23:02 Dose: 100 mls/hr Documented by: Potassium Chloride (Potassium Chloride) 10 meq in 100 mls @ 100 mls/hr IV Q1H [facility] Stop: 03/24/21 09:59 Last Admin: 03/24/21 07:55 Dose: 100 mls/hr Documented by: Ondansetron HCl (Ondansetron 4 Mg/2 Ml Vial) 4 mg IVP Q6HR PRN PRN Reason: Nausea / Vomiting Last Admin: 03/22/21 14:25 Dose: 4 mg Documented by: Pantoprazole Sodium (Pantoprazole 40 Mg Vial) 40 mg IVP QDAC [facility] Last Admin: 03/24/21 06:08 Dose: 40 mg Documented by: Prochlorperazine Edisylate (Prochlorperazine 10 Mg/2 Ml Vial) 10 mg IVP Q6HR PRN PRN Reason: Nausea / Vomiting Last Admin: 03/22/21 13:13 Dose: 10 mg Documented by: Sodium Chloride (Sodium Chloride Flush 0.9% 10 Ml Syringe) 10 ml IVP PRN PRN PRN Reason: NEEDED PER PROVIDER ORDERS Last Admin: 03/23/21 02:20 Dose: 10 ml Documented by: Sodium Chloride (Sodium Chloride Flush 0.9% 10 Ml Syringe) 10 ml IVP 0100, 0900,1700 [facility] Last Admin: 03/24/21 06:09 Dose: 10 ml Documented by: Omeprazole [PriLOSEC] 20 mg PO DAILY 09/20/17 Multivitamin [Multiple Vitamins] 1 tab PO DAILY 09/21/18 Cholecalciferol (Vitamin D3) [Vitamin D3] 2,000 unit PO DAILY 10/09/19 polyethylene glycoL 3350 [Miralax] 17 gm PO Q48H 12/08/19 Osimertinib Mesylate [Tagrisso] 80 mg PO DAILY 01/04/21 Tamsulosin [Flomax] 0.4 mg PO DAILY 03/21/21 Objective - Vital Signs/Intake & Output Reviewed Vital Signs: Yes Vital Signs: Vital Signs x48h Temp Pulse Resp BP Pulse Ox 03/24/21 07:23 36.9 C 87 16 127/84 H 99 Intake & Output: Intake & Output 03/21/21 03/22/21 03/23/21 03/24/21 23:59 23:59 23:59 23:59 Intake Total 3242.083 3240 2460 Output Total 2475 2225 901 Balance 558.669 9611 1559 - Objective General Appearance: positive: No acute distress, Alert Eyes Bilateral: positive: Normal inspection, Conjunctivae nml ENT: positive: ENT inspection nml Neck: positive: Nml inspection Respiratory: positive: No respiratory distress. negative: Wheezes, Rales Cardiovascular: positive: Regular rate & rhythm. negative: Tachycardia, Systolic murmur Abdomen: positive: Nml bowel sounds, No distention, Tenderness (Mild tenderness in the lower abdomen around the incision.), Other (Dressing is in place over the lower abdomen.). negative: Guarding, Rebound Skin: positive: Warm, Dry Extremities: positive: No pedal edema - Lab Results Fish Bones: 03/24/21 06:37 03/24/21 06:37 Other Labs: Lab Results x24hrs 03/24/21 03/24/21 03/23/21 Range/Units 06:37 06:37 08:45 WBC 6.6 (4.8-10.8) x10^3/uL RBC 3.80 L (4.70-6.10) 10^6/uL Hgb 11.0 L (14.0-18.0) g/dL Hct 34.7 L (42.0-52.0) % MCV 91.3 (80.0-94.0) fL MCH 28.9 (27.0-31.0) pg MCHC 31.7 L (32.0-36.0) g/dL RDW 13.9 (12.0-15.0) % Plt Count 138 (130-450) 10^3/uL MPV 10.5 (7.4-11.4) fL Neut # (Auto) 4.5 (1.5-6.6) 10^3/uL Lymph # (Auto) 1.2 L (1.5-3.5) 10^3/uL [place] # (Auto) 0.9 (0.0-1.0) 10^3/uL Eos # (Auto) 0.0 (0.0-0.7) 10^3/uL Baso # (Auto) 0.0 (0.0-0.1) 10^3/uL Absolute Nucleated RBC 0.00 x10^3/uL Nucleated RBC % 0.0 /100WBC Sodium 136 (135-145) mmol/L Potassium 3.4 L (3.5-5.0) mmol/L Chloride 103 (101-111) mmol/L Carbon Dioxide 22 (21-32) mmol/L Anion Gap 11.0 (6-13) BUN 13 (6-20) mg/dL Creatinine 1.0 (0.6-1.2) mg/dL Estimated GFR (MDRD) 77 L (>89) Glucose 80 (70-100) mg/dL Calcium 8.6 (8.5-10.3) mg/dL Total Bilirubin 1.0 (0.2-1.0) mg/dL Direct Bilirubin 0.2 (0.1-0.5) mg/dL AST 32 (10-42) IU/L ALT 16 (10-60) IU/L Alkaline Phosphatase 35 L (42-121) IU/L Total Protein 7.8 (6.7-8.2) g/dL Albumin 3.5 (3.2-5.5) g/dL Globulin 4.3 H (2.1-4.2) g/dL 03/23/21 Range/Units 08:45 WBC 6.7 (4.8-10.8) x10^3/uL RBC 4.00 L (4.70-6.10) 10^6/uL Hgb 11.7 L (14.0-18.0) g/dL Hct 35.9 L (42.0-52.0) % MCV 89.8 (80.0-94.0) fL MCH 29.3 (27.0-31.0) pg MCHC 32.6 (32.0-36.0) g/dL RDW 14.1 (12.0-15.0) % Plt Count 145 (130-450) 10^3/uL MPV 9.4 (7.4-11.4) fL Neut # (Auto) 4.9 (1.5-6.6) 10^3/uL Lymph # (Auto) 0.7 L (1.5-3.5) 10^3/uL [place] # (Auto) 1.0 (0.0-1.0) 10^3/uL Eos # (Auto) 0.1 (0.0-0.7) 10^3/uL Baso # (Auto) 0.0 (0.0-0.1) 10^3/uL Absolute Nucleated RBC 0.00 x10^3/uL Nucleated RBC % 0.0 /100WBC Sodium (135-145) mmol/L Potassium (3.5-5.0) mmol/L Chloride (101-111) mmol/L Carbon Dioxide (21-32) mmol/L Anion Gap (6-13) BUN (6-20) mg/dL Creatinine (0.6-1.2) mg/dL Estimated GFR (MDRD) (>89) Glucose (70-100) mg/dL Calcium (8.5-10.3) mg/dL Total Bilirubin (0.2-1.0) mg/dL Direct Bilirubin (0.1-0.5) mg/dL AST (10-42) IU/L ALT (10-60) IU/L Alkaline Phosphatase (42-121) IU/L Total Protein (6.7-8.2) g/dL Albumin (3.2-5.5) g/dL Globulin (2.1-4.2) g/dL Assessment/Plan - Problem List (1) SBO (small bowel obstruction) Impression: He is now postop day 2 of an expiratory laparotomy with small bowel resection and lysis of adhesions. Well and has been tolerating sips. The NG tube was removed yesterday. Will discuss with general surgery but we can likely start him on clears today. (2) Fever Impression: He has had no further fevers and antibiotics have been discontinued now for about 24 hours. He recommends within normal limits. We will continue to monitorl. (3) History of colon cancer Impression: He has a history of colon cancer in February 2017 which was treated with a left hemicolectomy. He will continue to follow-up with Dr. Villa on an outpatient basis. (4) History of lung cancer Impression: He also has a history of left upper lobe lung cancer status post lobectomy followed by treatment with chemotherapy. He has been started on palliative carboplatin, pemetrexed, Keytruda in November and is now on osimertinib. We are continuing to hold the osimertinib. He will continue outpatient follow-up with Dr. Villa once discharged.
[2021-03-24] MEDS: POTASSIUM CHLOR 10 MEQ/100 ML 10 MEQ/100 ML BAG IV SCH ×2 (07:55→11:26)
[2021-03-24] MEDS: LACTATED RINGERS 1,000 ML IV SCH ×2 (09:33→19:44)
--- NOTE | 2021-03-24 09:48 | PROVIDER PROGRESS NOTE ---
Subjective - General Admit Date: 03/21/21 Procedure Date: 03/22/21 Post Op Days: 2 Procedure Performed: Small bowel resection - Review of Systems Wound/Incisions: positive: Healing well, Dressing dry and intact All Other Systems: positive: Reviewed and negative - Other Other Information/Narrative: Doing well, up in chair, ambulating. Still having watery loose stools. Hungry. Objective - Patient Data Vital Signs: Vital Signs x48h Temp Pulse Resp BP Pulse Ox 03/24/21 07:23 36.9 C 87 16 127/84 H 99 Weight: Weight 03/22/21 03/23/21 03/24/21 23:59 23:59 23:59 Weight (kg) 72 kg Intake & Output: Intake and Output Totals x24h 03/22/21 03/23/21 03/24/21 23:59 23:59 23:59 Intake Total 3240 2460 1000 Output Total 2225 901 Balance 1015 1559 1000 - Lab Results Lab Results: 03/24/21 06:37 03/24/21 06:37 Other Lab Results: Lab Results x24hrs 03/24/21 03/24/21 Range/Units 06:37 06:37 WBC 6.6 (4.8-10.8) x10^3/uL RBC 3.80 L (4.70-6.10) 10^6/uL Hgb 11.0 L (14.0-18.0) g/dL Hct 34.7 L (42.0-52.0) % MCV 91.3 (80.0-94.0) fL MCH 28.9 (27.0-31.0) pg MCHC 31.7 L (32.0-36.0) g/dL RDW 13.9 (12.0-15.0) % Plt Count 138 (130-450) 10^3/uL MPV 10.5 (7.4-11.4) fL Neut # (Auto) 4.5 (1.5-6.6) 10^3/uL Lymph # (Auto) 1.2 L (1.5-3.5) 10^3/uL [place] # (Auto) 0.9 (0.0-1.0) 10^3/uL Eos # (Auto) 0.0 (0.0-0.7) 10^3/uL Baso # (Auto) 0.0 (0.0-0.1) 10^3/uL Absolute Nucleated RBC 0.00 x10^3/uL Nucleated RBC % 0.0 /100WBC Sodium 136 (135-145) mmol/L Potassium 3.4 L (3.5-5.0) mmol/L Chloride 103 (101-111) mmol/L Carbon Dioxide 22 (21-32) mmol/L Anion Gap 11.0 (6-13) BUN 13 (6-20) mg/dL Creatinine 1.0 (0.6-1.2) mg/dL Estimated GFR (MDRD) 77 L (>89) Glucose 80 (70-100) mg/dL Calcium 8.6 (8.5-10.3) mg/dL - Current Medications Current Medications: Current Medications Generic Name Dose Route Start Last Admin Trade Name Freq PRN Reason Stop Dose Admin Hydromorphone HCl 0.5 mg 03/21/21 20:34 03/23/21 00:16 Hydromorphone 0.5 Mg/0.5 Ml Syringe IVP 0.5 mg Q2H PRN Administration Pain 8 to 10 Lactated Ringer's 1,000 mls @ 100 mls/hr 03/21/21 04:00 03/24/21 09:33 Lr IV 100 mls/hr .Q10H [facility] Administration Potassium Chloride 10 meq in 100 mls @ 100 mls/hr 03/24/21 08:00 03/24/21 07:55 Potassium Chloride IV 03/24/21 09:59 100 mls/hr Q1H [facility] Administration Ondansetron HCl 4 mg 03/21/21 03:18 03/22/21 14:25 Ondansetron 4 Mg/2 Ml Vial IVP 4 mg Q6HR PRN Administration Nausea / Vomiting Pantoprazole Sodium 40 mg 03/21/21 08:00 03/24/21 06:08 Pantoprazole 40 Mg Vial IVP 40 mg QDAC [facility] Administration Prochlorperazine Edisylate 10 mg 03/21/21 03:18 03/22/21 13:13 Prochlorperazine 10 Mg/2 Ml Vial IVP 10 mg Q6HR PRN Administration Nausea / Vomiting Sodium Chloride 10 ml 03/21/21 03:18 03/23/21 02:20 Sodium Chloride Flush 0.9% 10 Ml Syringe IVP 10 ml PRN PRN Administration NEEDED PER PROVIDER ORDERS Sodium Chloride 10 ml 03/21/21 09:00 03/24/21 06:09 Sodium Chloride Flush 0.9% 10 Ml Syringe IVP 10 ml 0100,0900,1700 LUIS Administration Impression/Plan - Problem List Problem List: Start clear liquid diet. Repeat labs in AM.
[2021-03-25] MEDS: SODIUM CHLORIDE FLUSH 0.9% 10 ML SYRINGE IVP SCH ×3 (00:41→19:29)
[2021-03-25 05:25] LABS: CALCIUM 8.5 mg/dL (8.5-10.3); CREATININE 0.8 mg/dL (0.6-1.2); POTASSIUM 3.7 mmol/L (3.5-5.0)
[2021-03-25] MEDS: LACTATED RINGERS 1,000 ML IV SCH (06:27)
[2021-03-25] MEDS: PANTOPRAZOLE 40 MG VIAL IVP SCH (06:27)
[2021-03-25 06:34] LABS: BASOPHILS % (AUTO) 0.5 %; EOSINOPHILS # (AUTO) 0.1 10^3/uL (0.0-0.7); EOSINOPHILS % (AUTO) 0.8 %; HCT - HEMATOCRIT 38.9 % (42.0-52.0); HGB - HEMOGLOBIN 12.7 g/dL (14.0-18.0); LYMPHOCYTES # (AUTO) 1.5 10^3/uL (1.5-3.5); LYMPHOCYTES % (AUTO) 19.5 %; MEAN CORPUSCULAR HEMOGLOBIN 28.9 pg (27.0-31.0); MEAN CORPUSCULAR HGB CONC 32.6 g/dL (32.0-36.0); MEAN CORPUSCULAR VOLUME 88.6 fL (80.0-94.0); MEAN PLATELET VOLUME 9.7 fL (7.4-11.4); MONOCYTES # (AUTO) 0.8 10^3/uL (0.0-1.0); MONOCYTES % (AUTO) 9.7 %; NEUTROPHILS # (AUTO) 5.5 10^3/uL (1.5-6.6); NEUTROPHILS % (AUTO) 69.2 %; PLT - PLATELET COUNT 190 10^3/uL (130-450); RED BLOOD COUNT 4.39 10^6/uL (4.70-6.10); RED CELL DISTRIBUTION WIDTH 13.6 % (12.0-15.0); WHITE BLOOD COUNT 7.9 x10^3/uL (4.8-10.8)
--- NOTE | 2021-03-25 11:11 | PROVIDER PROGRESS NOTE ---
Subjective - General Admit Date: 03/21/21 Procedure Date: 03/22/21 Post Op Days: 3 Procedure Performed: Small bowel resection - Review of Systems Wound/Incisions: positive: Healing well, Dressing dry and intact Gastrointestinal: negative: Nausea, Vomiting, Abdominal pain All Other Systems: positive: Reviewed and negative Objective - Patient Data Reviewed Vital Signs: Yes Vital Signs: Vital Signs x48h Pulse Resp BP Pulse Ox 03/25/21 07:40 73 20 133/76 H 100 Intake & Output: Intake and Output Totals x24h 03/23/21 03/24/21 03/25/21 23:59 23:59 23:59 Intake Total 2460 2800 1360 Output Total 901 201 Balance 1559 2800 1159 - Lab Results Lab Results: 03/25/21 06:29 03/25/21 04:57 Other Lab Results: Lab Results x24hrs 03/25/21 03/25/21 Range/Units 06:29 04:57 WBC 7.9 (4.8-10.8) x10^3/uL RBC 4.39 L (4.70-6.10) 10^6/uL Hgb 12.7 L (14.0-18.0) g/dL Hct 38.9 L (42.0-52.0) % MCV 88.6 (80.0-94.0) fL MCH 28.9 (27.0-31.0) pg MCHC 32.6 (32.0-36.0) g/dL RDW 13.6 (12.0-15.0) % Plt Count 190 (130-450) 10^3/uL MPV 9.7 (7.4-11.4) fL Neut # (Auto) 5.5 (1.5-6.6) 10^3/uL Lymph # (Auto) 1.5 (1.5-3.5) 10^3/uL [place] # (Auto) 0.8 (0.0-1.0) 10^3/uL Eos # (Auto) 0.1 (0.0-0.7) 10^3/uL Baso # (Auto) 0.0 (0.0-0.1) 10^3/uL Absolute Nucleated RBC 0.00 x10^3/uL Nucleated RBC % 0.0 /100WBC Sodium 132 L (135-145) mmol/L Potassium 3.7 (3.5-5.0) mmol/L Chloride 99 L (101-111) mmol/L Carbon Dioxide 18 L (21-32) mmol/L Anion Gap 15.0 H (6-13) BUN 12 (6-20) mg/dL Creatinine 0.8 (0.6-1.2) mg/dL Estimated GFR (MDRD) 99 (>89) Glucose 69 L (70-100) mg/dL Calcium 8.5 (8.5-10.3) mg/dL - Current Medications Current Medications: Current Medications Generic Name Dose Route Start Last Admin Trade Name Freq PRN Reason Stop Dose Admin Hydromorphone HCl 0.5 mg 03/21/21 20:34 03/23/21 00:16 Hydromorphone 0.5 Mg/0.5 Ml Syringe IVP 0.5 mg Q2H PRN Administration Pain 8 to 10 Ondansetron HCl 4 mg 03/21/21 03:18 03/22/21 14:25 Ondansetron 4 Mg/2 Ml Vial IVP 4 mg Q6HR PRN Administration Nausea / Vomiting Pantoprazole Sodium 40 mg 03/21/21 08:00 03/25/21 06:27 Pantoprazole 40 Mg Vial IVP 40 mg QDAC LUIS Administration Prochlorperazine Edisylate 10 mg 03/21/21 03:18 03/22/21 13:13 Prochlorperazine 10 Mg/2 Ml Vial IVP 10 mg Q6HR PRN Administration Nausea / Vomiting Sodium Chloride 10 ml 03/21/21 03:18 03/23/21 02:20 Sodium Chloride Flush 0.9% 10 Ml Syringe IVP 10 ml PRN PRN Administration NEEDED PER PROVIDER ORDERS Sodium Chloride 10 ml 03/21/21 09:00 03/25/21 06:27 Sodium Chloride Flush 0.9% 10 Ml Syringe IVP 10 ml 0100,0900,1700 LUIS Administration - Physical Exam Abdomen: positive: Non-tender (Incision OK) Impression/Plan - Problem List Problem List: Doing well after SBR for SBO. Tolerating clears. Plan: Advance diet. Discontinue IV OK to restart Tagrisso, flomax, omeprazole
--- NOTE | 2021-03-25 11:13 | PROVIDER PROGRESS NOTE ---
Subjective - Prog Note Date Prog Note Date: 03/25/21 - Subjective Subjective: He reports feeling quite well. He is eager to go home. Denies abdominal pain. No nausea or vomiting. He last had a bowel movement yesterday evening. Has been tolerating a diet. Current Medications - Current Medications Current Medications: Active Medications Hydromorphone HCl (Hydromorphone 0.5 Mg/0.5 Ml Syringe) 0.5 mg IVP Q2H PRN PRN Reason: Pain 8 to 10 Last Admin: 03/23/21 00:16 Dose: 0.5 mg Documented by: Non-Formulary Medication (Osimertinib Mesylate [Tagrisso]) 80 mg PO DAILY [facility] Non-Formulary Medication (Omeprazole [Prilosec]) 20 mg PO DAILY [facility] Ondansetron HCl (Ondansetron 4 Mg/2 Ml Vial) 4 mg IVP Q6HR PRN PRN Reason: Nausea / Vomiting Last Admin: 03/22/21 14:25 Dose: 4 mg Documented by: Prochlorperazine Edisylate (Prochlorperazine 10 Mg/2 Ml Vial) 10 mg IVP Q6HR PRN PRN Reason: Nausea / Vomiting Last Admin: 03/22/21 13:13 Dose: 10 mg Documented by: Sodium Chloride (Sodium Chloride Flush 0.9% 10 Ml Syringe) 10 ml IVP PRN PRN PRN Reason: NEEDED PER PROVIDER ORDERS Last Admin: 03/23/21 02:20 Dose: 10 ml Documented by: Sodium Chloride (Sodium Chloride Flush 0.9% 10 Ml Syringe) 10 ml IVP 0100,0900,1700 [facility] Last Admin: 03/25/21 06:27 Dose: 10 ml Documented by: Tamsulosin HCl (Tamsulosin 0.4 Mg Capsule) 0.4 mg PO DAILY [facility] Omeprazole [PriLOSEC] 20 mg PO DAILY 09/20/17 Multivitamin [Multiple Vitamins] 1 tab PO DAILY 04/12/18 Cholecalciferol (Vitamin D3) [Vitamin D3] 2,000 unit PO DAILY 10/09/19 polyethylene glycoL 3350 [Miralax] 17 gm PO Q48H 12/08/19 Osimertinib Mesylate [Tagrisso] 80 mg PO DAILY 01/04/21 Tamsulosin [Flomax] 0.4 mg PO DAILY 03/21/21 Objective - Vital Signs/Intake & Output Reviewed Vital Signs: Yes Vital Signs: Vital Signs x48h Pulse Resp BP Pulse Ox 03/25/21 07:40 73 20 133/76 H 100 Intake & Output: Intake & Output 03/22/21 03/23/21 03/24/21 03/25/21 23:59 23:59 23:59 23:59 Intake Total 3240 2460 2800 1360 Output Total 2225 901 201 Balance 1015 1559 2800 1159 - Objective General Appearance: positive: No acute distress, Alert Eyes Bilateral: positive: Normal inspection, Conjunctivae nml ENT: positive: ENT inspection nml Neck: positive: Nml inspection Respiratory: positive: No respiratory distress. negative: Wheezes, Rales Cardiovascular: positive: Regular rate & rhythm. negative: Tachycardia Abdomen: positive: Nml bowel sounds, No distention, Tenderness (Minimal tenderness around the incision.). negative: Non-tender, Guarding, Rebound Skin: positive: Warm, Dry Extremities: positive: No pedal edema Neurologic/Psychiatric: positive: Motor nml. negative: Disoriented to person, Disoriented to place, Disoriented to time - Lab Results Fish Bones: 03/25/21 06:29 03/25/21 04:57 Other Labs: Lab Results x24hrs 03/25/21 03/25/21 Range/Units 06:29 04:57 WBC 7.9 (4.8-10.8) x10^3/uL RBC 4.39 L (4.70-6.10) 10^6/uL Hgb 12.7 L (14.0-18.0) g/dL Hct 38.9 L (42.0-52.0) % MCV 88.6 (80.0-94.0) fL MCH 28.9 (27.0-31.0) pg MCHC 32.6 (32.0-36.0) g/dL RDW 13.6 (12.0-15.0) % Plt Count 190 (130-450) 10^3/uL MPV 9.7 (7.4-11.4) fL Neut # (Auto) 5.5 (1.5-6.6) 10^3/uL Lymph # (Auto) 1.5 (1.5-3.5) 10^3/uL [place] # (Auto) 0.8 (0.0-1.0) 10^3/uL Eos # (Auto) 0.1 (0.0-0.7) 10^3/uL Baso # (Auto) 0.0 (0.0-0.1) 10^3/uL Absolute Nucleated RBC 0.00 x10^3/uL Nucleated RBC % 0.0 /100WBC Sodium 132 L (135-145) mmol/L Potassium 3.7 (3.5-5.0) mmol/L Chloride 99 L (101-111) mmol/L Carbon Dioxide 18 L (21-32) mmol/L Anion Gap 15.0 H (6-13) BUN 12 (6-20) mg/dL Creatinine 0.8 (0.6-1.2) mg/dL Estimated GFR (MDRD) 99 (>89) Glucose 69 L (70-100) mg/dL Calcium 8.5 (8.5-10.3) mg/dL Assessment/Plan - Problem List (1) SBO (small bowel obstruction) Impression: He is now postop day 3 of an exploratory laparotomy with small bowel resection and lysis of adhesions. He has been doing quite well and tolerating clear liquid diet. The plan is to advance his diet today and if he continues to do well then he can be discharged home tomorrow morning. Appreciate general surgery input. (2) History of colon cancer Impression: He has a history of colon cancer in February 2017 which was treated with a left hemicolectomy. He will continue to follow-up with Dr. Villa on an outpatient basis. (3) History of lung cancer Impression: He also has a history of left upper lobe lung cancer status post lobectomy followed by treatment with chemotherapy. He has been started on palliative carboplatin, pemetrexed, Keytruda in November and is now on osimertinib. We will resume his osimertinib today now that he is taking p.o. consistently. He will continue outpatient follow-up with his oncologist once discharged. (4) Fever Impression: No fevers since the initial one postoperatively. White count remains within normal limits.
[2021-03-25] MEDS ORDERED: OSIMERTINIB MESYLATE 80 MG PO SCH (12:00)
[2021-03-25] MEDS ORDERED: TAMSULOSIN 0.4 MG CAPSULE PO SCH (12:00)
[2021-03-26] MEDS: SODIUM CHLORIDE FLUSH 0.9% 10 ML SYRINGE IVP SCH (00:15)
[2021-03-26 05:46] LABS: BASOPHILS % (AUTO) 0.1 %; EOSINOPHILS # (AUTO) 0.1 10^3/uL (0.0-0.7); EOSINOPHILS % (AUTO) 1.2 %; HCT - HEMATOCRIT 34.9 % (42.0-52.0); HGB - HEMOGLOBIN 11.7 g/dL (14.0-18.0); LYMPHOCYTES # (AUTO) 1.3 10^3/uL (1.5-3.5); LYMPHOCYTES % (AUTO) 17.7 %; MEAN CORPUSCULAR HEMOGLOBIN 28.9 pg (27.0-31.0); MEAN CORPUSCULAR HGB CONC 33.5 g/dL (32.0-36.0); MEAN CORPUSCULAR VOLUME 86.2 fL (80.0-94.0); MEAN PLATELET VOLUME 9.6 fL (7.4-11.4); MONOCYTES # (AUTO) 0.9 10^3/uL (0.0-1.0); MONOCYTES % (AUTO) 12.2 %; NEUTROPHILS % (AUTO) 68.4 %; PLT - PLATELET COUNT 204 10^3/uL (130-450); RED BLOOD COUNT 4.05 10^6/uL (4.70-6.10); RED CELL DISTRIBUTION WIDTH 13.4 % (12.0-15.0); WHITE BLOOD COUNT 7.3 x10^3/uL (4.8-10.8)
[2021-03-26 05:56] LABS: CALCIUM 8.5 mg/dL (8.5-10.3); CREATININE 0.8 mg/dL (0.6-1.2); POTASSIUM 3.3 mmol/L (3.5-5.0)
[2021-03-26] MEDS ORDERED: PANTOPRAZOLE 40 MG TABLET PO SCH (07:00)
[2021-03-26] MEDS ORDERED: POTASSIUM CHLORIDE 20 MEQ TABLET PO ONE (07:53)
--- NOTE | 2021-03-26 07:53 | Discharge Plan ---
Discharge Plan Problem Reviewed?: Yes Disposition: Home, Self Care Condition: Stable Diet: Soft Activity Restrictions: Activity as Tolerated Shower Restrictions: No Driving Restrictions: No Health Concerns: You were admitted to the hospital because of small bowel obstruction. This was because of scar tissue from previous surgery causing the bowel to twist on itself. You ended up having surgery with a small part of the bowel being removed and reconnected. Since then, he has been able to tolerate a diet and have no further episodes of nausea and vomiting. You are also able to have bowel movements. Given this, you are now stable for discharge. Plan of Treatment: There were no changes made to your home medications. You may continue to take them as previously prescribed. You may shower and there are 2 options for the abdominal dressing. You may place a Saran wrap over it and remove that after the shower. You may also remove the dressing and shower and then apply a new dressing after the area is dry. Assessment: The patient expressed understanding of the treatment plan. Additional Instructions or Follow Up instructions: Please follow-up with general surgery in 7 to 10 days. Please continue to follow-up with your oncologist as scheduled. Please call the surgery clinic on Sunday to schedule an appointment for follow- up. The phone number is . No Smoking: If you smoke, Please STOP! Call for help.
--- NOTE | 2021-03-26 07:53 | DISCHARGE SUMMARY ---
"Discharge Summary Admit Date: 03/20/21 Discharge Date: 03/26/21 Discharging Provider: Gen Mendez Code Status: Attempt Resuscitation Condition at Discharge: Stable Discharge Disposition: 01 Home, Self Care - DIAGNOSES Admission Diagnoses: Small bowel obstruction Hypokalemia History of colon cancer History of lung cancer GERD Discharge Diagnoses with Status of Each Condition: Small bowel obstruction - resolved. History of colon cancer - stable. History of lung cancer - stable. GERD - stable. BPH - stable. Fever - resolved. - HPI History of Present Illness: H&P per Dr. Guillermo: This is a 56-year-old [place]ian male with a history of lung cancer with lobectomy and colon cancer with partial colectomy. He had an admission here in September 2019 for small bowel obstruction with transition point near the umbilicus and this resolved with NG tube decompression and bowel rest. He is followed closely at the [facility] Oncology clinic here. There are mets to the spine at L2 confirmed by biopsy several mos ago. His chemotherapy was stopped in November 2020, when the mets were found. He has been on tumor-directed therapy since December, which has given him nausea, loss of taste and loss of smell. His taste and appetite returned and this morning he ate a large [employer] breakfast, but started to get abdominal pain 1 hour later. Patient presented to the ED due to persistent abdominal pain all day, and nausea with minimal vomiting. In the ED, work-up showed essentially normal labs, tachycardia but normal blood pressure and no fever. He underwent abdominal CT which showed dilated intestines and small bowel obstruction, moderate, transition point at the left mid-abdomen. The ED provider called the surgeon who advised admission and NG tube insertion for decompression be done. The patient is being admitted to the Hospitalist service with surgical consultation. - CONSULTS | PROCEDURES Consultations: General Surgery Procedures: He underwent an expiratory laparotomy with small bowel resection on March 22 with general surgery. It was noted that he had loops of mid small bowel densely adherent to the abdominal wall at the umbilical trocar scar. Bowel was twisted at this point and after release was too thinned to allow primary closure, requiring resection. - HOSPITAL COURSE Hospital Course: He was admitted to the floor for small bowel obstruction and NG tube was placed. He initially felt improvement after the NG tube was placed and he had resolution of his nausea and improvement in his abdominal pain. Abdominal x-ray still showed a persistent bowel obstruction and so a Gastrografin challenge was attempted. Unfortunately despite the Gastrografin, he continued to have evidence of persistent bowel obstruction on imaging. His abdominal pain also increased and he had further nausea and vomiting. A decision was made to take him to the OR on March 22 and he had an expiratory laparotomy with small bowel resection. It was noted that a loop of small bowel was adherent to the abdominal wall at the site of the prior umbilical trocar scar. He underwent resection with anastomosis. He was continued on IV Flagyl and cefazolin for 24 hours postoperatively. He did spike a fever postoperatively but this resolved antibiotics were discontinued. There was no obvious source of infection. He re mained afebrile throughout the remainder of his hospitalization. He was kept n.p.o. except for sips for the first 24 hours postoperatively. His diet was then advanced to clears followed by a soft diet which he tolerated well. He has had no further nausea or vomiting and he has had bowel movements. He is now stable for discharge home. He will be following up with general surgery in 7 to 10 days. His pain has been controlled without the use of opiates. - ALLERGIES Allergies/Adverse Reactions: Allergies Allergy/AdvReac Type Severity Reaction Status Date / Time No Known Drug Allergies Allergy Verified 03/20/21 21:59 - MEDICATIONS Home Medications: Ambulatory Orders Medication Instructions Recorded Confirmed Omeprazole [PriLOSEC] 20 mg PO DAILY 09/20/17 03/20/21 Multivitamin [Multiple Vitamins] 1 tab PO DAILY 04/12/18 03/20/21 Cholecalciferol (Vitamin D3) 2,000 unit PO DAILY 10/09/19 03/20/21 [Vitamin D3] polyethylene glycoL 3350 [Miralax] 17 gm PO Q48H 12/08/19 03/21/21 Osimertinib Mesylate [Tagrisso] 80 mg PO DAILY 01/04/21 03/20/21 Tamsulosin [Flomax] 0.4 mg PO DAILY 03/21/21 03/21/21 - PHYSICAL EXAM AT DISCHARGE General Appearance: positive: No acute distress, Alert Eyes Bilateral: positive: Normal inspection, Conjunctivae nml ENT: positive: ENT inspection nml Neck: positive: Nml inspection Respiratory: positive: No respiratory distress. negative: Wheezes, Rales Cardiovascular: positive: Regular rate & rhythm, No murmur. negative: Tachycardia Abdomen: positive: Nml bowel sounds, Tenderness (Mild tenderness at the site of the incision.), Other (Dressing in place over the lower abdomen.). negative: Guarding, Rebound Skin: positive: Warm, Dry Extremities: positive: Full ROM, No pedal edema Neurologic/Psychiatric: positive: Oriented x3, Motor nml. negative: Disoriented to person, Disoriented to place, Disoriented to time - LABS Result Diagrams: 03/26/21 05:26 03/26/21 05:26 - DIAGNOSTIC IMAGING Diagnostic Imaging Results: Final report reviewed - FOLLOW UP Follow Up: He will be following up with general surgery in 7 to 10 days. He was provided with the phone number for the surgery clinic and was asked to call on Sunday to schedule this appointment. He was also asked to continue to follow-up with his oncologist as previously scheduled. - TIME SPENT Time Spent in Discharge (Minutes): 32"
[2021-03-26 08:23] VITALS: BP 135/74
[2021-03-26] MEDS ORDERED: NON FORMULARY MED (Omeprazole [Prilosec] 20 MG Capsule) PO SCH (09:00)
== END 2021-03-26 09:15 | disposition home or self-care (01) | DRG 330 ==
LOC: ED 21:57 → MS2 03-21 03:12
PROVIDERS: ADMIT Internal Medicine; ATTEND Internal Medicine
PROC: 0D180Z8 Bypass Small Intestine to Small Intestine, Open Approach (ICD-10-PCS; 2021-03-22)
PROC: 0DB80ZZ Excision of Small Intestine, Open Approach (ICD-10-PCS; principal; 2021-03-22 16:30)
DX: K56.50 Intestinal adhesions [bands], unspecified as to partial versus complete obstruction (principal); C79.51 Secondary malignant neoplasm of bone; C34.90 Malignant neoplasm of unspecified part of unspecified bronchus or lung; Z85.038 Personal history of other malignant neoplasm of large intestine; K21.9 Gastro-esophageal reflux disease without esophagitis; N40.0 Benign prostatic hyperplasia without lower urinary tract symptoms; Z90.49 Acquired absence of other specified parts of digestive tract; R50.82 Postprocedural fever; Z90.2 Acquired absence of lung [part of]; E87.6 Hypokalemia; Z20.822 Contact with and (suspected) exposure to COVID-19
CPT/HCPCS: 0202U; 36415; 43753; 74177; 74250; 80048; 80053; 80076; 83690; 83735; 85025; 85027; 96361; 96374; 96375; 99284; 99285; A9270; J0131; J1170; J7120; Q9963; Q9967

== ENCOUNTER 2021-05-30 22:56 | Emergency (ER) | payer OTHER ==
--- NOTE | 2021-05-30 23:09 | ED Physician Documentation ---
PD HPI ABD PAIN - Stated complaint Stated Complaint: STOMACH PX - History obtained from History obtained from: Patient - History of Present Illness Timing - onset: How many days ago (3) Timing - details: Gradual onset, Waxing and waning Pain level max: 6 Pain level now: 2 Quality: Pain Location: All over / everywhere (predominantly LLQ) Radiation: Other (does not radiate) Improved by: Other (no ameliorating factors) Worsened by: Palpation Associated symptoms: Diarrhea (episodic (some loose/diarrheal stools, but has firm/well-formed stools as well)). No: Fever, Nausea, Vomiting, Melena, Hematochezia - Additional information Additional information: c/o 3 days of waxing and waning abdominal pain, diffuse but predominantly LLQ. Pain started shortly after eating breakfast 3 days ago. He has had normal bowel movements over past 3 days although some loose/diarrheal stools as well. Deneis nausea/vomiting. He has a h/o SBO including 3 months ago which required inpatient stay and surgery ([facility]). Review of Systems Constitutional: denies: Fever, Chills, Sweats Cardiac: reports: Reviewed and negative Respiratory: reports: Reviewed and negative GI: reports: Abdominal Pain, Diarrhea. denies: Abdominal Swelling, Nausea, Vomiting, Constipation, Hematemesis, Bloody / black stool : denies: Dysuria, Frequency Skin: reports: Reviewed and negative Musculoskeletal: reports: Reviewed and negative Neurologic: reports: Reviewed and negative PD PAST MEDICAL HISTORY - Past Medical History Cardiovascular: None Respiratory: Other Neuro: None Endocrine/Autoimmune: None GI: GERD, Other : None HEENT: None Psych: None Musculoskeletal: None Derm: None - Past Surgical History Past Surgical History: Yes General: Bowel surgery, Colonoscopy Cardiovascular: Lobectomy HEENT: Other - Present Medications Home Medications: Ambulatory Orders Medication Instructions Recorded Confirmed Omeprazole [PriLOSEC] 20 mg PO DAILY 09/20/17 05/09/21 Multivitamin [Multiple Vitamins] 1 tab PO DAILY 04/12/18 05/09/21 Cholecalciferol (Vitamin D3) 2,000 unit PO DAILY 10/09/19 05/09/21 [Vitamin D3] polyethylene glycoL 3350 [Miralax] 17 gm PO Q48H 12/08/19 05/09/21 Osimertinib Mesylate [Tagrisso] 80 mg PO DAILY 01/04/21 05/09/21 Tamsulosin [Flomax] 0.4 mg PO DAILY 03/21/21 05/09/21 Ajo-3/Dha/Epa/Fish Oil [Fish Oil 1,400 mg PO DAILY 04/11/21 05/09/21 1,000 mg Softgel] Tumeric/Ging/[place]/Oreg/Capryl 1,600 mg PO DAILY 04/11/21 05/09/21 [Candicidal Capsule] - Allergies Allergies/Adverse Reactions: Allergies Allergy/AdvReac Type Severity Reaction Status Date / Time No Known Drug Allergies Allergy Verified 05/30/21 23:13 - Social History Does the pt smoke?: No Smoking Status: Never smoker Does the pt drink ETOH?: No Does the pt have substance abuse?: No - Immunizations Immunizations are current?: Yes - POLST Patient has POLST: No PD ED PE NORMAL - Vitals Vital signs reviewed: Yes - General General: Alert and oriented X 3, No acute distress, Well developed/nourished - HEENT HEENT: Moist mucous membranes - Neck Neck: Supple, no meningeal sign - Cardiac Cardiac: RRR, No murmur, No gallop, No rub - Respiratory Respiratory: No respiratory distress, Clear bilaterally - Abdomen Abdomen: Soft - Back Back: No CVA TTP - Derm Derm: Normal color, Warm and dry PD ED PE EXPANDED - Abdomen Abdomen: Decreased BS, Tender to palpation, LLQ. No: Distended, Rebound, Guarding Results - Vitals Vitals: Vital Signs - 24 hr 05/30/21 05/31/21 23:09 01:10 Temperature 36.3 C L Heart Rate 97 90 Respiratory 16 18 Rate Blood Pressure 152/86 H 153/98 H O2 Saturation 99 98 Oxygen O2 Source Room air - Labs Labs: Laboratory Tests 05/30/21 05/30/21 05/30/21 23:10 23:30 23:51 WBC 7.0 RBC 4.79 Hgb 13.2 L Hct 41.3 L MCV 86.2 MCH 27.6 MCHC 32.0 RDW 14.4 Plt Count 204 MPV 9.5 Neut # (Auto) 4.3 Lymph # (Auto) 1.8 [place] # (Auto) 0.7 Eos # (Auto) 0.1 Baso # (Auto) 0.0 Absolute Nucleated RBC 0.00 Nucleated RBC % 0.0 Sodium 137 Potassium 3.5 Chloride 103 Carbon Dioxide 25 Anion Gap 9.0 BUN 13 Creatinine 1.0 Estimated GFR (MDRD) 77 L Glucose 126 H Calcium 8.7 Total Bilirubin 0.4 AST 23 ALT 16 Alkaline Phosphatase 41 L Total Protein 7.6 Albumin 4.0 Globulin 3.6 Albumin/Globulin Ratio 1.1 Lipase 34 Urine Color YELLOW Urine Clarity CLEAR Urine pH 6.0 Ur Specific [place] 1.020 Urine Protein NEGATIVE Urine Glucose (UA) NEGATIVE Urine Ketones NEGATIVE Urine Occult Blood TRACE-INTA Urine Nitrite NEGATIVE Urine Bilirubin NEGATIVE Urine Urobilinogen 0.2 (NORMAL) Ur Leukocyte Esterase NEGATIVE Ur Microscopic Review NOT INDICATED Urine Culture Comments NOT INDICATED - Rads (name of study) CT A/P with IV and PO contrast Radiology: Prelim report reviewed, See rad report PD MEDICAL DECISION MAKING - ED course Complexity details: reviewed old records, reviewed results, re-evaluated patient, considered differential, d/w patient ED course: CT demonstrates dilated small bowel loops c/w SBO. However, patient has not had any pain or nausea during ED stay. On reexamination, he has no abdominal tenderness. He tolerated the entire bottle of PO contrast without any difficulty and continues to pass gas during ED stay. He has stool and gas throughout the colon on CT and there is no transition point seen on CT. I discussed option of admission for bowel rest and observation, but also presented option of discharge with liquid/soft diet and need for immediate return should he develop signs/symptoms of bowel obstruction (nausea/vomiting, pain, abdominal distention, no BM, not passing gas). He is preferring discharge at this time and expresses understanding of the need to return for these symptoms should they occur. Overall, the clinical picture, combined with CT findings, would be more consistent with partial SBO rather than a complete SBO. Departure - Departure Disposition: 01 Home, Self Care Clinical Impression: Small bowel obstruction, partial Condition: Good Instructions: Obstruction Sm Bowel Comments: As we discussed, your CT scan has findings that are consistent with small bowel obstruction. However, you are not having any signs nor symptoms at this time that would indicate the need for hospitalization. For the rest of the day today you should stick to a liquid diet such as broth or ensure; by the afternoon, if you are not having pain or nausea, you can add soft foods such as noodles, applesauce, jello. You can advance the diet to more solid foods in the next 2-3 days if you are not having any concerning signs or symptoms as listed below. You should follow up with your primary care provider by the end of this week for a reevaluation if this can be arranged. You need to return to the emergency department if you develop any concerning signs/symptoms such as: abdominal pain, nausea and vomiting, abdominal bloating/distention, urge to defecate without bowel movements, fever. Discharge Date/Time: 05/31/21 01:57
[2021-05-30 23:18] LABS: BILIRUBIN,URINE NEGATIVE (NEGATIVE); CLARITY,URINE CLEAR (CLEAR); GLUCOSE, URINE (UA) NEGATIVE (NEGATIVE); KETONES,URINE (UA) NEGATIVE (NEGATIVE); LEUKOCYTE ESTERASE, URINE NEGATIVE (NEGATIVE); NITRITE,URINE NEGATIVE (NEGATIVE); OCCULT BLOOD,URINE TRACE-INTA (NEGATIVE); PROTEIN,URINE NEGATIVE (NEGATIVE); UROBILINOGEN,URINE 0.2 (NORMAL) E.U./dL (NORMAL)
[2021-05-30 23:38] LABS: BASOPHILS % (AUTO) 0.4 %; EOSINOPHILS # (AUTO) 0.1 10^3/uL (0.0-0.7); EOSINOPHILS % (AUTO) 1.6 %; HCT - HEMATOCRIT 41.3 % (42.0-52.0); HGB - HEMOGLOBIN 13.2 g/dL (14.0-18.0); LYMPHOCYTES # (AUTO) 1.8 10^3/uL (1.5-3.5); LYMPHOCYTES % (AUTO) 25.9 %; MEAN CORPUSCULAR HEMOGLOBIN 27.6 pg (27.0-31.0); MEAN CORPUSCULAR VOLUME 86.2 fL (80.0-94.0); MEAN PLATELET VOLUME 9.5 fL (7.4-11.4); MONOCYTES # (AUTO) 0.7 10^3/uL (0.0-1.0); MONOCYTES % (AUTO) 9.9 %; NEUTROPHILS # (AUTO) 4.3 10^3/uL (1.5-6.6); NEUTROPHILS % (AUTO) 62.1 %; PLT - PLATELET COUNT 204 10^3/uL (130-450); RED BLOOD COUNT 4.79 10^6/uL (4.70-6.10); RED CELL DISTRIBUTION WIDTH 14.4 % (12.0-15.0)
[2021-05-30] MEDS ORDERED: IOVERSOL 320 100 ML VIAL IVP ONE (23:42)
[2021-05-30] MEDS ORDERED: IOVERSOL 320 50 ML VIAL ONE (23:42)
[2021-05-31 00:08] LABS: ALBUMIN/GLOBULIN RATIO 1.1 (1.0-2.2); BILIRUBIN,TOTAL 0.4 mg/dL (0.2-1.0); CALCIUM 8.7 mg/dL (8.5-10.3); POTASSIUM 3.5 mmol/L (3.5-5.0); TOTAL PROTEIN 7.6 g/dL (6.7-8.2)
[2021-05-31] MEDS ORDERED: IOVERSOL 320 100 ML VIAL IVP ONE (01:05)
[2021-05-31] MEDS ORDERED: IOVERSOL 320 50 ML VIAL PO ONE (01:06)
[2021-05-31 01:11] VITALS: BP 153/98
--- NOTE | 2021-05-31 01:26 | CT Report ---
PROCEDURE: Abdomen/Pelvis W INDICATIONS: abdominal pain CONTRAST: IV CONTRAST: Optiray 320 ml: 100 PO CONTRAST: Optiray 320 [id number] TECHNIQUE: After the administration of contrast, 5 mm thick sections acquired from the diaphragms to the sym physis. 5 mm thick coronal and sagittal reformats were acquired. For radiation dose reduction, the following was used: automated exposure control, adjustment of mA and/or kV according to patient size . COMPARISON: 03/21/2021 FINDINGS: Image quality: Excellent. ABDOMEN: Lung bases: Lung bases are clear. Heart size is normal. Solid organs: Liver: The liver has no mass or intrahepatic biliary ductal dilatation. The portal vein and hepatic veins are patent. Multiple simple hepatic cysts. Biliary: The gallbladder has no gallstones, pericholecystic fluid, gallbladder wall thickening, or torres rrounding inflammatory change. [] Pancreas: The pancreas has no mass or ductal dilatation. No surrounding inflammation. [] Spleen: Normal size. No mass. [] Adrenal glands: No hypertrophy or nodules. [] Kidneys: No obstructive calculus or hydronephrosis. No solid mass. No cystic mass. [] Bowel: Small hiatal hernia. The stomach is normal. Anastomotic sutures in the sigmoid colon. There ar e dilated loops of small bowel consistent with small bowel obstruction. Anastomotic sutures in the ce ntral abdomen. No definite transition point. The large bowel has a normal caliber and appearance. [] Free air/free fluid: No free air or free fluid. [] Abdominal wall: No abdominal wall mass or hernia. [] Retroperitoneum: No retroperitoneal or mesenteric adenopathy by size criteria. Aorta and inferior ve na cava are normal in size. [] Lymph nodes: No adenopathy. [] Bones: Sclerotic lesion of L2 anteriorly is unchanged. No vertebral body compression fractures. [] PELVIS: Genitourinary: [Bladder wall thickness is normal. ] [] Miscellaneous: [No inguinal hernias or adenopathy. ] [] Bones: [No suspicious bony lesions. No vertebral body compression fractures. ] [] IMPRESSION: 1. Small bowel obstruction. 2. Sclerotic lesion of L2 anteriorly is unchanged compared to 03/21/2021. Cannot exclude a sclerotic m etastasis. Reviewed by: Jaylen Connolly on 05/31/2021 1:25 AM PST Approved by: Jaylen Connolly on 05/31/2021 1:25 AM PST Station ID: [id number]
== END 2021-05-31 01:57 | disposition home or self-care (01) ==
LOC: ED 22:56
DX: K56.600 Partial intestinal obstruction, unspecified as to cause (principal)
CPT/HCPCS: 36415; 74177; 80053; 81003; 83690; 85025; 99282; 99284; Q9967; 81001; 87086

== ENCOUNTER 2021-06-24 14:58 | Outpatient (CLI) | payer OTHER | END 2021-06-24 14:59 | disposition home or self-care (01) | LOC: LAB 14:58 | PROVIDERS: ATTEND Specialist | DX: R97.20 Elevated prostate specific antigen [PSA] (principal) | CPT/HCPCS: 36415; 84153 ==

== ENCOUNTER 2023-07-10 20:01 | Emergency (ER) | payer OTHER ==
[2023-07-10 20:29] VITALS: O2SAT 98
[2023-07-10 20:42] LABS: BASOPHILS % (AUTO) 0.4 %; EOSINOPHILS # (AUTO) 0.1 10^3/uL (0.0-0.7); EOSINOPHILS % (AUTO) 1.2 %; HCT - HEMATOCRIT 41.4 % (42.0-52.0); HGB - HEMOGLOBIN 13.7 g/dL (14.0-18.0); LYMPHOCYTES # (AUTO) 1.9 10^3/uL (1.5-3.5); LYMPHOCYTES % (AUTO) 27.8 %; MEAN CORPUSCULAR HEMOGLOBIN 28.2 pg (27.0-31.0); MEAN CORPUSCULAR HGB CONC 33.1 g/dL (32.0-36.0); MEAN CORPUSCULAR VOLUME 85.4 fL (80.0-94.0); MEAN PLATELET VOLUME 9.1 fL (7.4-11.4); MONOCYTES # (AUTO) 0.6 10^3/uL (0.0-1.0); MONOCYTES % (AUTO) 8.5 %; NEUTROPHILS # (AUTO) 4.1 10^3/uL (1.5-6.6); PLT - PLATELET COUNT 200 10^3/uL (130-450); RED BLOOD COUNT 4.85 10^6/uL (4.70-6.10); RED CELL DISTRIBUTION WIDTH 12.9 % (12.0-15.0); WHITE BLOOD COUNT 6.7 x10^3/uL (4.8-10.8)
[2023-07-10 21:00] LABS: ALBUMIN 4.7 g/dL (3.2-5.5); ALBUMIN/GLOBULIN RATIO 1.5 (1.0-2.2); BILIRUBIN,TOTAL 0.5 mg/dL (0.2-1.0); CALCIUM 9.4 mg/dL (8.5-10.3); POTASSIUM 3.9 mmol/L (3.5-4.5); TOTAL PROTEIN 7.9 g/dL (6.4-8.9)
--- NOTE | 2023-07-10 22:17 | ED Physician Documentation ---
PD HPI ABD PAIN - Stated complaint Stated Complaint: ABD PX - Chief complaint Chief Complaint: Abd Pain - History obtained from History obtained from: Patient - Additional information Additional information: HPI from patient. Patient c/o 2 weeks of episodic sensation of abdominal distention and bloating. Initially this was without apparent exacerbating factors but over past 3 days it is worse with solid PO intake. No ameliorating factors but episodes resolve on their own. he denies nausea, vomiting. He is bothered by the symptoms but denies abdominal pain. Denies fevers, blood in stool, constipation, diarrhea. PMH includes colon CA for which he had colon resection, subsequent SBO. Review of Systems Constitutional: denies: Fever Cardiac: reports: Reviewed and negative Respiratory: reports: Reviewed and negative GI: reports: Abdominal Swelling (swelling/distention/bloating sensation although he says he does not appear (to him) to be visibly distended). denies: Abdominal Pain, Nausea, Vomiting, Constipation, Diarrhea, Hematemesis, Bloody / black stool PD PAST MEDICAL HISTORY - Past Medical History Cardiovascular: None Respiratory: Other Neuro: None Endocrine/Autoimmune: None GI: GERD, Other : None HEENT: None Psych: None Musculoskeletal: None Derm: None - Past Surgical History Past Surgical History: Yes General: Bowel surgery, Colonoscopy Cardiovascular: Lobectomy HEENT: Other - Present Medications Home Medications: Ambulatory Orders Medication Instructions Recorded Confirmed Omeprazole [PriLOSEC] 20 mg PO DAILY 09/20/17 05/28/23 Multivitamin [Multiple Vitamins] 1 tab PO DAILY 04/12/18 05/28/23 Cholecalciferol (Vitamin D3) 2,000 unit PO DAILY 10/09/19 05/28/23 [Vitamin D3] polyethylene glycoL 3350 [Miralax] 17 gm PO Q48H 12/08/19 05/28/23 Osimertinib Mesylate [Tagrisso] 80 mg PO DAILY 01/04/21 05/28/23 Tamsulosin [Flomax] 0.4 mg PO DAILY 03/21/21 05/28/23 [place]-3/Dha/Epa/Fish Oil [Fish Oil 1,400 mg PO DAILY 04/11/21 05/28/23 1,000 mg Softgel] Tumeric/Ging/[place]/Oreg/Capryl 1,600 mg PO DAILY 04/11/21 05/28/23 [Candicidal Capsule] Lidocaine 1 unit TOP TID PRN 09/19/21 05/28/23 - Allergies Allergies/Adverse Reactions: Allergies Allergy/AdvReac Type Severity Reaction Status Date / Time No Known Drug Allergies Allergy Verified 07/10/23 20:21 - Social History Does the pt smoke?: No Smoking Status: Never smoker Does the pt drink ETOH?: No Does the pt have substance abuse?: No - Immunizations Immunizations are current?: Yes - POLST Patient has POLST: No PD ED PE NORMAL - Vitals Vital signs reviewed: Yes - General General: Alert and oriented X 3, No acute distress, Well developed/nourished - Cardiac Cardiac: RRR, No murmur - Respiratory Respiratory: No respiratory distress, Clear bilaterally - Abdomen Abdomen: Normal bowel sounds, Soft, Non tender, Non distended - Derm Derm: Normal color, Warm and dry Results - Vitals Vitals: Oxygen O2 Source Room air - Labs Labs: Laboratory Tests 07/10/23 07/10/23 20:36 20:36 WBC 6.7 RBC 4.85 Hgb 13.7 L Hct 41.4 L MCV 85.4 MCH 28.2 MCHC 33.1 RDW 12.9 Plt Count 200 MPV 9.1 Neut # (Auto) 4.1 Lymph # (Auto) 1.9 [place] # (Auto) 0.6 Eos # (Auto) 0.1 Baso # (Auto) 0.0 Absolute Nucleated RBC 0.00 Nucleated RBC % 0.0 Sodium 139 Potassium 3.9 Chloride 105 Carbon Dioxide 26 Anion Gap 8.0 BUN 12 Creatinine 1.0 Estimated GFR (MDRD) 76 L Glucose 114 H Calcium 9.4 Total Bilirubin 0.5 AST 36 ALT 23 Alkaline Phosphatase 45 Total Protein 7.9 Albumin 4.7 Globulin 3.2 Albumin/Globulin Ratio 1.5 Lipase 24 PD Medical Decision Making - ED course Complexity details: reviewed results, re-evaluated patient, considered differential, d/w patient ED course: No concerning nor diagnostic findings on CBC, ER abdominal panel. He is in NAD and unremarkable exam. That his abdomen is nontender, nondistended, and has normal bowel sounds, combined with patient reporting no change in bowel habits, makes constipation, SBO highly unlikely. Infectious, inflammatory processes would also be of low suspicion given normal WBC, LFTs, and lack of tenderness on exam. Cholelithiasis, PUD could account for sensation of bloating with PO intake, but emergent/inpatient testing for these diagnoses not indicated at this time; I did advise him to take his omeprazole daily x 2 weeks for possible PUD (he has been taking it sporadically as a PRN rx). Results reviewed with patient, return precautions discussed. Departure - Departure Disposition: Home, Self Care Clinical Impression: Abdominal pain Qualifiers: Abdominal location: generalized Qualified Code(s): R10.84 - Generalized abdominal pain Condition: Good Instructions: ED Abdominal Pain Unkn Cause Male Follow-Up: MATILDA HURD ARNP [Primary Care Provider] - Comments: There were no concerning nor diagnostic findings on tonight's blood tests. The cause of your symptoms is not apparent at this time. Given that you are not having any pain, that your nontender on abdominal exam, and in light of the reassuring blood test, no further emergency testing is indicated at this time. Certainly, you should return to the emergency department anytime your symptoms worsen or if you develop new/concerning signs/symptoms, such as fever, abdominal pain, blood in your stool, vomiting. I recommend that you take your omeprazole once per day for the next two weeks to see if that improves your symptoms of bloating after eating. Forms: PCP List Discharge Date/Time: 07/10/23 23:05
[2023-07-10 23:17] VITALS: BP 155/102
== END 2023-07-10 23:05 | disposition home or self-care (01) ==
LOC: ED 20:01
DX: R10.84 Generalized abdominal pain (principal); Z79.899 Other long term (current) drug therapy
CPT/HCPCS: 36415; 80053; 83690; 85025; 99283

== ENCOUNTER 2024-01-17 11:32 | Outpatient (CLI) | payer OTHER | END 2024-01-17 11:33 | disposition home or self-care (01) | LOC: LAB.R 11:32 | PROVIDERS: ATTEND Dentist Oral and Maxillofacial Surgery | DX: K12.2 Cellulitis and abscess of mouth (principal) | CPT/HCPCS: 87070; 87205 ==

== ENCOUNTER 2024-01-22 16:30 | Emergency (ER) | payer OTHER ==
[2024-01-22 16:59] VITALS: BP 142/82; O2SAT 99
--- NOTE | 2024-01-22 17:01 | ED Physician Documentation ---
PD HPI ABD PAIN - Stated complaint Stated Complaint: UPPER ABD PX - Chief complaint Chief Complaint: Abd Pain - History obtained from History obtained from: Patient - Additional information Additional information: He has a history of colon cancer status post and partial colectomy in 2016 had a partial small bowel obstruction in 2020. He developed left-sided abdominal pain around 10 AM today after eating. It is partially better now. There is no associated nausea or vomiting. He is only had small bowel movement since it started but feels like he needs to go. He has a history of reflux and is supposed to be on omeprazole twice daily but is only taking it sporadically. PD PAST MEDICAL HISTORY - Past Medical History Cardiovascular: None Respiratory: Other Neuro: None Endocrine/Autoimmune: None GI: GERD, Other : None HEENT: None Psych: None Musculoskeletal: None Derm: None Other Past Medical History: colon cancer, surgically removed 2016 - Past Surgical History Past Surgical History: Yes General: Bowel surgery, Colonoscopy Cardiovascular: Lobectomy HEENT: Other - Present Medications Home Medications: Ambulatory Orders Medication Instructions Recorded Confirmed Omeprazole [PriLOSEC] 20 mg PO DAILY 09/20/17 09/24/23 Multivitamin [Multiple Vitamins] 1 tab PO DAILY 04/12/18 09/24/23 Cholecalciferol (Vitamin D3) 2,000 unit PO DAILY 10/09/19 09/24/23 [Vitamin D3] polyethylene glycoL 3350 [Miralax] 17 gm PO Q48H 12/08/19 09/24/23 Osimertinib Mesylate [Tagrisso] 80 mg PO DAILY 01/04/21 09/24/23 Tamsulosin [Flomax] 0.4 mg PO DAILY 03/21/21 09/24/23 [place]-3/Dha/Epa/Fish Oil [Fish Oil 1,400 mg PO DAILY 04/11/21 09/24/23 1,000 mg Softgel] Tumeric/Ging/[place]/Oreg/Capryl 1,600 mg PO DAILY 04/11/21 09/24/23 [Candicidal Capsule] Lidocaine 1 unit TOP TID PRN 09/19/21 09/24/23 - Allergies Allergies/Adverse Reactions: Allergies Allergy/AdvReac Type Severity Reaction Status Date / Time No Known Drug Allergies Allergy Verified 01/22/24 16:53 - Social History Does the pt smoke?: No Smoking Status: Never smoker Does the pt drink ETOH?: No Does the pt have substance abuse?: No - Immunizations Immunizations are current?: Yes - POLST Patient has POLST: No PD ED PE NORMAL - Vitals Vital signs reviewed: Yes - General General: Alert and oriented X 3, No acute distress - Abdomen Abdomen: Normal bowel sounds, Soft, Non tender - Neuro Neuro: Alert and oriented X 3 Eye Opening: Spontaneous Motor: Obeys Commands Verbal: Oriented GCS Score: 15 - Psych Psych: Normal mood, Normal affect Results - Vitals Vitals: Vital Signs - 24 hr 01/22/24 16:47 Temperature 37.2 C Heart Rate 93 Respiratory 18 Rate Blood Pressure 142/82 H O2 Saturation 99 Oxygen O2 Source Room air - Labs Labs: Laboratory Tests 01/22/24 01/22/24 17:05 17:05 WBC 10.6 RBC 4.95 Hgb 14.0 Hct 42.8 MCV 86.5 MCH 28.3 MCHC 32.7 RDW 13.5 Plt Count 165 MPV 9.4 Neut # (Auto) 8.6 H Lymph # (Auto) 1.0 L [place] # (Auto) 1.0 Eos # (Auto) 0.0 Baso # (Auto) 0.0 Absolute Nucleated RBC 0.00 Nucleated RBC % 0.0 Sodium 135 Potassium 3.5 Chloride 102 Carbon Dioxide 24 Anion Gap 9.0 BUN 17 Creatinine 0.9 Estimated GFR (MDRD) 86 L Glucose 121 H Calcium 9.5 Total Bilirubin 0.7 AST 23 ALT 21 Alkaline Phosphatase 41 L Total Protein 7.5 Albumin 4.6 Globulin 2.9 Albumin/Globulin Ratio 1.6 Lipase 24 PD Medical Decision Making - ED course ED course: He has been noncompliant with his omeprazole and now is having left upper quadrant pain with very benign examination. Pain is also improvingon its own. Given the benign exam and sporadic use of omeprazole we will trial a GI cocktail pending labs. After the GI cocktail he was feeling pain-free. CBC, CMP were unremarkable. Will treat by recommending he take his omeprazole. Departure - Departure Disposition: 01 Home, Self Care Clinical Impression: Gastritis Condition: Good Record reviewed to determine appropriate education?: Yes Instructions: ED Gastritis Comments: Labs today are looking good and you did get relief from the GI cocktail confirming likely acid is the source of the pain. Recommend you restart your omeprazole twice a day. Call your doctor to arrange a follow-up appointment, make the next available appointment. In the interim, return anytime if worse or if new symptoms develop. Forms: PCP List
[2024-01-22 17:09] LABS: BASOPHILS % (AUTO) 0.2 %; EOSINOPHILS % (AUTO) 0.3 %; HCT - HEMATOCRIT 42.8 % (42.0-52.0); LYMPHOCYTES % (AUTO) 9.2 %; MEAN CORPUSCULAR HEMOGLOBIN 28.3 pg (27.0-31.0); MEAN CORPUSCULAR HGB CONC 32.7 g/dL (32.0-36.0); MEAN CORPUSCULAR VOLUME 86.5 fL (80.0-94.0); MEAN PLATELET VOLUME 9.4 fL (7.4-11.4); MONOCYTES % (AUTO) 9.5 %; NEUTROPHILS # (AUTO) 8.6 10^3/uL (1.5-6.6); NEUTROPHILS % (AUTO) 80.6 %; PLT - PLATELET COUNT 165 10^3/uL (130-450); RED BLOOD COUNT 4.95 10^6/uL (4.70-6.10); RED CELL DISTRIBUTION WIDTH 13.5 % (12.0-15.0); WHITE BLOOD COUNT 10.6 x10^3/uL (4.8-10.8)
[2024-01-22] MEDS: LIDOCAINE VISCOUS 2% 15 ML UDC MM STA (17:18)
[2024-01-22] MEDS: MAG HYDROX/AL HYDROX/SIMETH 30 ML UDC PO STA (17:19)
[2024-01-22 17:24] LABS: ALBUMIN 4.6 g/dL (3.2-5.5); ALBUMIN/GLOBULIN RATIO 1.6 (1.0-2.2); BILIRUBIN,TOTAL 0.7 mg/dL (0.2-1.0); CALCIUM 9.5 mg/dL (8.5-10.3); CREATININE 0.9 mg/dL (0.6-1.3); POTASSIUM 3.5 mmol/L (3.5-4.5); TOTAL PROTEIN 7.5 g/dL (6.4-8.9)
[2024-01-22 17:36] LABS: BILIRUBIN,URINE NEGATIVE (NEGATIVE); GLUCOSE, URINE (UA) NEGATIVE (NEGATIVE); KETONES,URINE (UA) 15 mg/dL (NEGATIVE); LEUKOCYTE ESTERASE, URINE NEGATIVE (NEGATIVE); NITRITE,URINE NEGATIVE (NEGATIVE); OCCULT BLOOD,URINE NEGATIVE (NEGATIVE); PH,URINE 5.5 PH (5.0-7.5); PROTEIN,URINE NEGATIVE (NEGATIVE); UROBILINOGEN,URINE 0.2 (NORMAL) E.U./dL (NORMAL)
[2024-01-22 17:37] LABS: CLARITY,URINE CLEAR (CLEAR)
== END 2024-01-22 18:04 | disposition home or self-care (01) ==
LOC: ED 16:30
DX: K29.70 Gastritis, unspecified, without bleeding (principal); K21.9 Gastro-esophageal reflux disease without esophagitis; T47.1X6A Underdosing of other antacids and anti-gastric-secretion drugs, initial encounter; Z79.899 Other long term (current) drug therapy; Z85.038 Personal history of other malignant neoplasm of large intestine
CPT/HCPCS: 36415; 80053; 81003; 83690; 85025; 99283; A9270; 81001; 87086

== ENCOUNTER 2024-03-10 15:06 | Outpatient (CLI) | payer OTHER | END 2024-03-10 15:07 | disposition home or self-care (01) | LOC: DI 15:06 | PROVIDERS: ATTEND Family Medicine | DX: R01.1 Cardiac murmur, unspecified (principal) | CPT/HCPCS: 93307 ==